=== PATIENT | female | born 1970 | race Hispanic/Latino ===

== ENCOUNTER 2016-09-07 20:18 | Emergency (ER) | payer OTHER, MEDICARE ==
[~2016-09-07] VITALS: Ht 175.3 cm; Wt 113.4 kg
[~2016-09-07 20:18] MED LIST: ALPRAZOLAM1 M2 PO; ALPRAZOLAM2 M2 PO; ATIVAN1 M1 PO; ATORVASTATIN CA80 M1 PO; BLM PO; CLOPIDOGREL75 M1 PO; DEXILANT60 M1 PO; GABAPENTIN100 M2 PO; KEPPRA500 M1 PO; KEPPRA750 M1 PO; LIDODERM1 EACH EXT; MORPHINE SULFAT15 M3 PO; MORPHINE SULFAT15 M4 PO; NICOTINE PATCH1 EAC1 TD; NICOTINE PATCH1 EAC2 TOP; OXYCODONE5 M1 PO; PERCOCET 325 MG1 TA2 PO; PERCOCET 5-3251 EACH PO; TRANSDERM-SCOP1 EACH TOP; ULTRAM50 M1 PO; VICODIN 300 MG-1 TAB PO
--- NOTE | 2016-09-07 20:28 | ED NEURO DEFICIT/STROKE ---
History of Present Illness General Chief Complaint: Seizure Stated Complaint: BIBA SEIZURE Source: old records, EMS Exam Limitations: clinical condition Vital Signs & Intake/Output Vital Signs & Intake/Output Vital Signs Date Time Temp Pulse Resp B/P Pulse O2 O2 Flow FiO2 Ox Delivery Rate 09/07 2258 90 18 139/67 98 Room Air 09/07 2038 100 Room Air Room Air 09/07 2020 101 18 153/70 100 Room Air Allergies Coded Allergies: acetaminophen (Intermediate, UPSET STOMACH 07/15/16) PER PATIENT SHE IS ALLERGIC TO ACETAMINOPHEN ibuprofen (Intermediate, ULCERS 07/14/16) cyclobenzaprine (JITTERS 07/14/16) Reconcile Medications Alprazolam 1 MG TABLET 1 TAB PO TIDPRN Anxiety (Reported) Alprazolam 2 MG TABLET 1 TAB PO TID PRN ANXIETY TWENTY....[id number] Alprazolam 1 MG TABLET 1 TAB PO TIDPRN PRN ANXIETY TEN...[id number] Atorvastatin Calcium 80 MG TABLET 80 MG PO 1700 CHOLESTEROL, AND STROKE Clopidogrel Bisulfate (Clopidogrel) 75 MG TABLET 75 MG PO DAILY STROKE Prevention (Reported) Dexlansoprazole (Dexilant) 60 MG CAP.DR.BP 1 CAP PO DAILY HEARTBURN (Reported ) Levetiracetam (Keppra) 750 MG TABLET 1 TAB PO BID SEIZURE Lorazepam (Ativan) 1 MG TABLET 1 TAB PO TID anxiety Morphine Sulfate (Morphine Sulfate ER) 15 MG TABLET.ER 15 MG PO DAILY PAIN ( Reported) Morphine Sulfate 15 MG TABLET 1 TAB PO TID PAIN (Reported) Morphine Sulfate 15 MG TABLET 1 TAB PO BIDP PRN PAIN TEN...[id number] Triage Nurses Notes Reviewed? yes Onset: Abrupt Duration: minute(s): Timing: single episode today Severity: moderate Baseline: alert, oriented x 3 Associated Symptoms: seizures HPI: 45 yo woman h/o seizure disorder, presents after seizure like activity. Per the medics, she was watching television when she suddenly had her seizure like activity which lasted several minutes, notable for thrashing about in the gurney en route. The medics note that she was conscious and conversant throughout the episode. She did not fall or hit her head. After the seizures, she was confused, but arousable to verbal stimuli. Upon further questioning, she notes that she ran out of her alprazolam and her morphine a few days ago. She does not recall her last dose. Past History Travel History Traveled to [place] past 21 day No Medical History Any Pertinent Medical History? see below for history Neurological: seizure (ON KEPPRA ATIVAN), CVA X 2 RESIDUAL WEAKNESS R SIDE EENT: NONE Cardiovascular: NONE Respiratory: NONE Gastrointestinal: GASTRIC BYPASS Hepatic: NONE Renal: NONE Musculoskeletal: FREQ FALLS Psychiatric: anxiety Endocrine: NONE Blood Disorders: NONE Cancer(s): NONE NEUROLOGY TECH/Reproductive: TUBAL History of MRSA: No History of VRE: No History of CDIFF: No Surgical History Surgical History: , hysterectomy, tubal ligation, GASTRIC BYPASS Psychosocial History Who do you live with Significant Other What is your primary language [place] Family History Hx Contributory? No Review of Systems Review of Systems Constitutional: Reports: no symptoms. EENTM: Reports: no symptoms. Respiratory: Reports: no symptoms. Cardiovascular: Reports: no symptoms. GI: Reports: no symptoms. Genitourinary: Reports: no symptoms. Musculoskeletal: Reports: no symptoms. Skin: Reports: no symptoms. Neurological/Psychological: Reports: no symptoms. Hematologic/Endocrine: Reports: no symptoms. Immunologic/Allergic: Reports: no symptoms. All Other Systems: Reviewed and Negative Physical Exam Physical Exam General Appearance: mild distress, moderate distress Head: atraumatic, normal appearance Eyes: Bilateral: normal appearance, PERRL, EOMI. Ears, Nose, Throat: normal ENT inspection, moist mucous membrane Neck: normal inspection, supple, full range of motion Respiratory: normal breath sounds, chest non-tender, no respiratory distress, quiet respiration, lungs clear Cardiovascular: regular rate/rhythm, edema, JVD Gastrointestinal: normal bowel sounds, soft, non-tender, no organomegaly Back: normal inspection, normal range of motion Extremities: normal range of motion Cranial Nerves: normal hearing, normal speech, PERRL Coordination/Gait: normal finger to nose Motor/Sensory: no motor/sensory deficits Reflexes: 1+: bicep (R), bicep (L), knee (R), knee (L). Core Measures CVA/TIA Diagnosis: No Severe Sepsis Present: No Septic Shock Present: No Progress Differential Diagnosis: drug intoxication, electrolyte imbalance, hypoglycemia, intracranial Hem., migraine SNELL, stroke Plan of Care: Orders Procedure Date/time Status Add-on Test (ER Only) 09/07 2216 Active HUMAN BETA HCG SCREEN 09/07 2041 Active DILANTIN 09/[address] HEAD WO IV CONTRAST 09/[address] CERV SPINE WO IV CONTRAST 09/07 2032 Active TROPONIN LEVEL 09/07 2027 Active PROLACTIN 09/07 2027 Active ETHANOL 09/07 2027 Active COMPREHENSIVE METABOLIC PANEL 09/07 2027 Active CBC WITHOUT DIFFERENTIAL 09/07 2027 Complete EKG 09/07 2027 Active Current Medications Sig/Isabel Start time Last Medication Dose Stop Time Status Admin Oxycodone/ 1 TAB ONCE ONE 09/07 2345 CANr Acetaminophen 09/07 2346 (Percocet) Laboratory Tests 09/07/162041: Anion Gap 13, Estimated GFR > 60, BUN/Creatinine Ratio 15.0, Glucose 92, Calcium 9.2, Total Bilirubin 0.4, AST 13 L, ALT 15, Alkaline Phosphatase 72, Troponin I < 0.01, Total Protein 7.0, Albumin 3.7, Globulin 3.3, Albumin/Globulin Ratio 1.1 , Prolactin 16.5, Total Beta HCG Pending, CBC w Diff NO MAN DIFF REQ, RBC 4.15 L, MCV 77.7 L, MCH 25.0 L, RDW 19.3 H, MPV 8.2, Gran % 49.2, Lymphocytes % 36.1, Monocytes % 6.0, Eosinophils % 8.0 H, Basophils % 0.7, Absolute Granulocytes 3.8, Absolute Lymphocytes 2.8, Absolute Monocytes 0.5, Absolute Eosinophils 0.6, Absolute Basophils 0.1, PUBS MCHC 32.3 L, Phenytoin < 3.0 L, Serum Alcohol < 10.0 09/07/162032: Total Beta HCG Cancelled, Phenytoin Cancelled Diagnostic Imaging: Viewed by Me: Radiology Read, CT Scan. Discussed w/RAD: Radiology Read, CT Scan. Initial ED EKG: normal axis, normal intervals, normal p-waves, normal QRS complex, normal sinus rhythm Comments: PATIENT: ANA CRISTINA LAMBERT PRESENT AGE: 45 PATIENT ACCOUNT NO: [id number] : 68 LOCATION: [facility] ORDERING PHYSICIAN: ULYSSES RICHMOND MD SERVICE DATE: 09/07/16 EXAM TYPE: RAD - XRY-PORTABLE CHEST XRAY EXAMINATION: XR PORTABLE CHEST CLINICAL INFORMATION: Seizures. COMPARISON: Chest x-ray 07/15/2016 TECHNIQUE: Portable view of the chest was obtained. 11:01 PM FINDINGS: No significant abnormality is noted involving the heart, lungs, mediastinum, bony thorax or soft tissues. IMPRESSION: Unremarkable examination. DICTATED BY: CLAUDE PEARSON MD DATE/TIME DICTATED:09/07/162311 SHORT GOODS DRIER:MISSY DATE/TIME TRANSCRIBED:09/07/162311 CONFIDENTIAL, DO NOT COPY WITHOUT APPROPRIATE AUTHORIZATION. <Electronically signed in Other Vendor System> SIGNED BY: CLAUDE PEARSON MD 09/07/162316 Departure Departure Disposition: HOME OR SELF CARE Condition: Stable Clinical Impression Primary Impression: Seizure disorder Referrals: MACRINA LOPEZ,ELLIOT Mcguire (PCP/Family) Departure Forms: Customer Survey General Discharge Information Prescriptions: Current Visit Scripts Morphine Sulfate 1 TAB PO BIDP PRN PAIN #10 TAB TEN...[id number] Alprazolam 1 TAB PO TIDPRN PRN ANXIETY #10 TAB TEN...[id number] Comments 09/07/16, 23:56... pt comfortable in bed... upon further questioning, her symptoms may have been due to running out of her alprazolam and morphine.... Her labs are benign, prolactin is normal... She is safe for discharge. She has declined the head ct. She would like to go home.
[2016-09-07 20:50] LABS: ABSOLUTE BASOPHIL COUNT 0.1 /CUMM (0.0-0.2); ABSOLUTE EOSINOPHIL COUNT 0.6 /CUMM (0.0-0.7); ABSOLUTE GRANULOCYTE CT 3.8 /CUMM (1.4-6.5); ABSOLUTE LYMPH COUNT 2.8 /CUMM (1.2-3.4); ABSOLUTE MONOCYTE COUNT 0.5 /CUMM (0.10-0.60); BASOPHIL % 0.7 % (0.0-2.0); GRANULOCYTE % 49.2 % (42.2-75.2); HEMATOCRIT 32.2 % (37-47); MEAN CORPUSCULAR HGB CONC 32.3 G/DL (33.0-37.0); MEAN CORPUSCULAR VOLUME 77.7 FL (81.0-99.0); MEAN PLATELET VOLUME 8.2 FL (7.4-10.4); PLATELET COUNT 235 /CUMM (130-400); RBC DISTRIBUTION WIDTH 19.3 % (11.5-14.5); RED BLOOD CELL CT 4.15 /CUMM (4.20-5.40); WHITE BLOOD CELL COUNT 7.7 /CUMM (4.8-10.8)
--- NOTE | 2016-09-07 23:17 | RADIOLOGY REPORT ---
EXAMINATION: XR PORTABLE CHEST CLINICAL INFORMATION: Seizures. COMPARISON: Chest x-ray 07/15/2016 TECHNIQUE: Portable view of the chest was obtained. 11:01 PM FINDINGS: No significant abnormality is noted involving the heart, lungs, mediastinum, bony thorax or soft tissues. IMPRESSION: Unremarkable examination.
[2016-09-07] MEDS ORDERED: ALPRAZOLAM1 M2 PO (23:45)
[2016-09-07] MEDS ORDERED: MORPHINE SULFAT15 M4 PO (23:45)
[2016-09-08 00:12] VITALS: BP 133/60
== END 2016-09-08 00:13 ==
LOC: ERH 20:18
PROVIDERS: Pediatrics
DX: G40.909 Epilepsy, unspecified, not intractable, without status epilepticus (principal)
CPT/HCPCS: 93005; 93010; 96374; G0480

== ENCOUNTER 2016-09-08 16:45 | Emergency (ER) | payer OTHER, MEDICARE ==
[~2016-09-08] VITALS: Ht 167.6 cm; Wt 79.4 kg
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
[2016-09-08 17:37] VITALS: BP 110/74
== END 2016-09-08 17:38 ==
LOC: ERH 16:45
DX: R56.9 Unspecified convulsions (principal); F13.20 Sedative, hypnotic or anxiolytic dependence, uncomplicated

== ENCOUNTER 2016-10-05 19:21 | Emergency (ER) | payer OTHER, MEDICARE ==
[~2016-10-05] VITALS: Ht 172.7 cm; Wt 81.6 kg
--- NOTE | 2016-10-05 19:32 | ED AMS/SEIZURE/WEAK/DIZZY ---
History of Present Illness General Chief Complaint: Seizure Stated Complaint: BIBA SEIZURE Source: patient, old records, EMS Exam Limitations: no limitations Vital Signs & Intake/Output Vital Signs & Intake/Output Vital Signs Date Time Temp Pulse Resp B/P Pulse O2 O2 Flow FiO2 Ox Delivery Rate 10/05 2152 97.8 80 19 160/90 100 Room Air 10/05 2030 97 Room Air 10/05 2007 82 140/66 10/05 1932 98.7 85 18 129/80 100 Room Air ED Intake and Output 10/06 0000 10/05 1200 Intake Total 0 Output Total Balance 0 Intake, Oral 0 Patient 180 lb Weight Allergies Coded Allergies: acetaminophen (Intermediate, UPSET STOMACH 07/15/16) PER PATIENT SHE IS ALLERGIC TO ACETAMINOPHEN ibuprofen (Intermediate, ULCERS 07/14/16) cyclobenzaprine (JITTERS 07/14/16) Reconcile Medications Alprazolam 1 MG TABLET 1 TAB PO TIDPRN Anxiety (Reported) Alprazolam 2 MG TABLET 1 TAB PO TID PRN ANXIETY TWENTY....[id number] Alprazolam 1 MG TABLET 1 TAB PO TIDPRN PRN ANXIETY TEN...[id number] Atorvastatin Calcium 80 MG TABLET 80 MG PO 1700 CHOLESTEROL, AND STROKE Clopidogrel Bisulfate (Clopidogrel) 75 MG TABLET 75 MG PO DAILY STROKE Prevention (Reported) Dexlansoprazole (Dexilant) 60 MG CAP.DR.BP 1 CAP PO DAILY HEARTBURN (Reported ) Levetiracetam (Keppra) 750 MG TABLET 1 TAB PO BID SEIZURE Lorazepam (Ativan) 1 MG TABLET 1 TAB PO BID PRN ANXIETY/ATTACKS TEN...[id number] Lorazepam (Ativan) 1 MG TABLET 1 TAB PO TID anxiety Morphine Sulfate (Morphine Sulfate ER) 15 MG TABLET.ER 15 MG PO DAILY PAIN ( Reported) Morphine Sulfate 15 MG TABLET 1 TAB PO TID PAIN (Reported) Morphine Sulfate 15 MG TABLET 1 TAB PO BIDP PRN PAIN TEN...[id number] Triage Nurses Notes Reviewed? yes Onset: Abrupt Duration: minute(s): Timing: recent history Injury Environment: home Severity: mild, moderate Modifying Factors: Improves With: medication, rest. 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 Per the medics she had an episode where her left arm was twitching and her eyes were deviated upwards. She did not lose consciousness. There was no loss of bowel or bladder. She received a dose of benzodiazepines and IV. Her seizure-like activity stopped. She arrives in the emergency Department slightly lethargic but is responsive to questions. She notes pain, "all over my body," as well as a headache. Past History Travel History Traveled to [place] past 21 day No Medical History Any Pertinent Medical History? 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 No Review of Systems Review of Systems Constitutional: Reports: no symptoms. EENTM: Reports: no symptoms. Respiratory: Reports: no symptoms. Cardiovascular: Reports: no symptoms. GI: Reports: no symptoms. Genitourinary: Reports: no symptoms. Musculoskeletal: Reports: no symptoms. Skin: Reports: no symptoms. Neurological/Psychological: Reports: no symptoms. Hematologic/Endocrine: Reports: no symptoms. Immunologic/Allergic: Reports: no symptoms. All Other Systems: Reviewed and Negative Physical Exam Physical Exam General Appearance: well developed/nourished, mild distress Head: atraumatic, normal appearance Eyes: Bilateral: normal appearance. Ears, Nose, Throat: normal pharynx, normal ENT inspection Neck: normal inspection, supple, full range of motion Respiratory: normal breath sounds, chest non-tender, no respiratory distress, quiet respiration, lungs clear Cardiovascular: regular rate/rhythm Gastrointestinal: normal bowel sounds, soft, non-tender Back: normal inspection, normal range of motion Extremities: normal range of motion Neurologic/Psych: awake, alert, right arm and leg weakness 2 out of 5 strength. Left arm and leg strength is 5 out of 5. Reflexes: 0: bicep (R), knee (R). 1+: bicep (L), knee (L). Core Measures ACS in differential dx? No CVA/TIA Diagnosis: No Severe Sepsis Present: No Septic Shock Present: No Progress Differential Diagnosis: seizure vs pseudoseizure Plan of Care: Orders Procedure Date/time Status URINE DRUG SCREEN FOR ER ONLY 10/05 1932 Complete URINALYSIS 10/05 1932 Complete TROPONIN LEVEL 10/05 1932 Complete PROLACTIN 10/05 1932 Complete HUMAN BETA HCG SCREEN 10/05 1932 Complete ETHANOL 10/05 1932 Complete COMPREHENSIVE METABOLIC PANEL 10/05 1932 Complete CBC WITHOUT DIFFERENTIAL 10/05 1932 Complete EKG 10/05 1932 Active Laboratory Tests 10/05/162129: Urine Opiates Screen 498.00, Methadone Screen < 40, Barbiturate Screen < 60, Ur Phencyclidine Scrn < 6.00, Amphetamines Screen < 100, U Benzodiazepines Scrn > 800 H, Urine Cocaine Screen < 50, Urine Cannabis Screen 19.70, Urine Color YEL, Urine Clarity CLEAR, Urine pH 6.0, Ur Specific Farner 1.025, Urine Protein NEG, Urine Ketones NEG, Urine Nitrite NEG, Urine Bilirubin NEG, Urine Urobilinogen 0.2, Ur Leukocyte Esterase NEG, Ur Microscopic EXAM NOT REQUIRED, Urine Hemoglobin NEG, Urine Glucose NEG 10/05/162000: Anion Gap 8, Estimated GFR > 60, BUN/Creatinine Ratio 18.6, Glucose 91, Calcium 9.4, Total Bilirubin 0.4, AST 14, ALT 20, Alkaline Phosphatase 72, Troponin I < 0.01, Total Protein 6.9, Albumin 3.6, Globulin 3.3, Albumin/Globulin Ratio 1.1, Prolactin 19.2 H, Total Beta HCG NEGATIVE, CBC w Diff NO MAN DIFF REQ, RBC 4.03 L, MCV 77.9 L, MCH 25.7 L, RDW 19.4 H, MPV 8.6, Gran % 54.6, Lymphocytes % 32.8, Monocytes % 6.0, Eosinophils % 6.4 H, Basophils % 0.2, Absolute Granulocytes 4.4, Absolute Lymphocytes 2.7, Absolute Monocytes 0.5, Absolute Eosinophils 0.5, Absolute Basophils 0, PUBS MCHC 32.9 L, Serum Alcohol < 10.0 Diagnostic Imaging: Viewed by Me: Radiology Read, CT Scan. Discussed w/RAD: Radiology Read, CT Scan. Radiology Impression: head ct... chronic left mca infarct. no acute disease. Initial ED EKG: normal axis, normal intervals, normal p-waves, normal QRS complex, normal sinus rhythm Comments: PATIENT: ANA CRISTINA LAMBERT PRESENT AGE: 45 PATIENT ACCOUNT NO: [id number] : 66 LOCATION: [facility] ORDERING PHYSICIAN: ULYSSES RICHMOND MD SERVICE DATE: 10/05/16 EXAM TYPE: CAT - CT HEAD WO IV CONTRAST EXAMINATION: CT HEAD WITHOUT CONTRAST CLINICAL INFORMATION: Seizures. On Plavix. COMPARISON: CT head 08/13/2016 TECHNIQUE: Contiguous axial imaging was performed from the skull base to vertex without intravenous administration of contrast. DLP: 600.71 mGy-cm. FINDINGS: There is a chronic left MCA territory infarct unchanged since prior study. There is no evidence of acute intracranial hemorrhage or acute territorial infarction. No abnormal mass effect or midline shift is seen. Frankel to white matter differentiation is well preserved. No extra-axial fluid collections are identified. The ventricles are normal in size. There is no abnormal attenuation within the brain parenchyma. The osseous structures and soft tissues are normal. The mastoid air cells and visualized portions of the paranasal sinuses are well aerated. IMPRESSION: No acute intracranial pathology. DICTATED BY: CLAUDE PEARSON MD DATE/TIME DICTATED:10/05/162150 COMPUTERIZED MILL MILL RECORDER:MISSY DATE/TIME TRANSCRIBED:10/05/162150 CONFIDENTIAL, DO NOT COPY WITHOUT APPROPRIATE AUTHORIZATION. <Electronically signed in Other Vendor System> SIGNED BY: CLAUDE PEARSON MD 10/05/162208 PATIENT: ANA CRISTINA LAMBERT PRESENT AGE: 45 PATIENT ACCOUNT NO: [id number] : 66 LOCATION: [facility] ORDERING PHYSICIAN: ULYSSES RICHMOND MD SERVICE DATE: 10/05/16 EXAM TYPE: RAD - XRY-PORTABLE CHEST XRAY EXAMINATION: XR PORTABLE CHEST CLINICAL INFORMATION: Seizure. Concern for aspiration COMPARISON: Chest x-ray 09/07/2016 TECHNIQUE: Portable AP view of the chest was obtained. 8:22 PM FINDINGS: No significant abnormality is noted involving the heart, lungs, mediastinum, bony thorax or soft tissues. IMPRESSION: Unremarkable examination. DICTATED BY: CLAUDE PEARSON MD DATE/TIME DICTATED:10/05/162034 COMPUTERIZED MILL MILL RECORDER:MISSY DATE/TIME TRANSCRIBED:10/05/162034 CONFIDENTIAL, DO NOT COPY WITHOUT APPROPRIATE AUTHORIZATION. <Electronically signed in Other Vendor System> SIGNED BY: CLAUDE PEARSON MD 10/05/162039 Departure Departure Disposition: HOME OR SELF CARE Condition: Stable Clinical Impression Primary Impression: Seizure Referrals: MACRINA LOPEZ,ELLIOT Mcguire (PCP/Family) Departure Forms: Customer Survey General Discharge Information Prescriptions: Current Visit Scripts Lorazepam (Ativan) 1 TAB PO BID PRN ANXIETY/ATTACKS #10 TAB TEN...[id number] Comments well appearing at discharge, proloactin level is low... ct scan and cxr, labs are otherwise benign. This is similar to her prior episodes. She feels comfortable going home in company of her boyfriend. Close follow up encouraged.
[2016-10-05 20:13] LABS: ABSOLUTE BASOPHIL COUNT 0 /CUMM (0.0-0.2); ABSOLUTE EOSINOPHIL COUNT 0.5 /CUMM (0.0-0.7); ABSOLUTE GRANULOCYTE CT 4.4 /CUMM (1.4-6.5); ABSOLUTE LYMPH COUNT 2.7 /CUMM (1.2-3.4); ABSOLUTE MONOCYTE COUNT 0.5 /CUMM (0.10-0.60); BASOPHIL % 0.2 % (0.0-2.0); EOSINOPHIL % 6.4 % (0-5); GRANULOCYTE % 54.6 % (42.2-75.2); HEMATOCRIT 31.4 % (37-47); MEAN CORPUSCULAR HGB 25.7 PG (27.0-31.0); MEAN CORPUSCULAR HGB CONC 32.9 G/DL (33.0-37.0); MEAN CORPUSCULAR VOLUME 77.9 FL (81.0-99.0); MEAN PLATELET VOLUME 8.6 FL (7.4-10.4); PLATELET COUNT 217 /CUMM (130-400); RBC DISTRIBUTION WIDTH 19.4 % (11.5-14.5); RED BLOOD CELL CT 4.03 /CUMM (4.20-5.40); WHITE BLOOD CELL COUNT 8.1 /CUMM (4.8-10.8)
--- NOTE | 2016-10-05 20:40 | RADIOLOGY REPORT ---
EXAMINATION: XR PORTABLE CHEST CLINICAL INFORMATION: Seizure. Concern for aspiration COMPARISON: Chest x-ray 09/07/2016 TECHNIQUE: Portable AP view of the chest was obtained. 8:22 PM FINDINGS: No significant abnormality is noted involving the heart, lungs, mediastinum, bony thorax or soft tissues. IMPRESSION: Unremarkable examination.
[2016-10-05 21:53] VITALS: BP 160/90
--- NOTE | 2016-10-05 22:09 | CT SCAN REPORT ---
EXAMINATION: CT HEAD WITHOUT CONTRAST CLINICAL INFORMATION: Seizures. On Plavix. COMPARISON: CT head 08/13/2016 TECHNIQUE: Contiguous axial imaging was performed from the skull base to vertex without intravenous administration of contrast. DLP: 600.71 mGy-cm. FINDINGS: There is a chronic left MCA territory infarct unchanged since prior study. There is no evidence of acute intracranial hemorrhage or acute territorial infarction. No abnormal mass effect or midline shift is seen. Frankel to white matter differentiation is well preserved. No extra-axial fluid collections are identified. The ventricles are normal in size. There is no abnormal attenuation within the brain parenchyma. The osseous structures and soft tissues are normal. The mastoid air cells and visualized portions of the paranasal sinuses are well aerated. IMPRESSION: No acute intracranial pathology.
[2016-10-05] MEDS ORDERED: ATIVAN1 M1 PO (22:53)
== END 2016-10-05 23:13 ==
LOC: ERH 19:21
PROVIDERS: Pediatrics
DX: R56.9 Unspecified convulsions (principal)
CPT/HCPCS: 80307; 81003; 93005; 93010; 96374; G0480

== ENCOUNTER 2016-10-06 22:04 | Emergency (ER) | payer OTHER, MEDICARE ==
[~2016-10-06] VITALS: Ht 170.2 cm; Wt 86.2 kg
--- NOTE | 2016-10-06 22:37 | ED AMS/SEIZURE/WEAK/DIZZY ---
History of Present Illness General Chief Complaint: Seizure Stated Complaint: SEIZURE Source: patient, old records, EMS Exam Limitations: no limitations Vital Signs & Intake/Output Vital Signs & Intake/Output Vital Signs Date Time Temp Pulse Resp B/P Pulse O2 O2 Flow FiO2 Ox Delivery Rate 10/06 2305 98.0 96 18 109/59 96 Room Air 10/06 2212 Room Air 10/06 221 97.8 99 20 116/78 99 Room Air ED Intake and Output 10/07 0000 10/06 1200 Intake Total Output Total Balance Patient 190 lb Weight Allergies Coded Allergies: acetaminophen (Intermediate, UPSET STOMACH 07/15/16) PER PATIENT SHE IS ALLERGIC TO ACETAMINOPHEN ibuprofen (Intermediate, ULCERS 07/14/16) cyclobenzaprine (JITTERS 07/14/16) Reconcile Medications Alprazolam 1 MG TABLET 1 TAB PO TIDPRN Anxiety (Reported) Alprazolam 2 MG TABLET 1 TAB PO TID PRN ANXIETY TWENTY....[id number] Alprazolam 1 MG TABLET 1 TAB PO TIDPRN PRN ANXIETY TEN...[id number] Atorvastatin Calcium 80 MG TABLET 80 MG PO 1700 CHOLESTEROL, AND STROKE Clopidogrel Bisulfate (Clopidogrel) 75 MG TABLET 75 MG PO DAILY STROKE Prevention (Reported) Dexlansoprazole (Dexilant) 60 MG CAP.DR.BP 1 CAP PO DAILY HEARTBURN (Reported ) Levetiracetam (Keppra) 750 MG TABLET 1 TAB PO BID SEIZURE Lorazepam (Ativan) 1 MG TABLET 1 TAB PO BID PRN ANXIETY/ATTACKS TEN...[id number] Lorazepam (Ativan) 1 MG TABLET 1 TAB PO TID anxiety Morphine Sulfate (Morphine Sulfate ER) 15 MG TABLET.ER 15 MG PO DAILY PAIN ( Reported) Morphine Sulfate 15 MG TABLET 1 TAB PO TID PAIN (Reported) Morphine Sulfate 15 MG TABLET 1 TAB PO BIDP PRN PAIN TEN...[id number] Triage Note: BIBA FOR SEIZURES. PER EMS SEIZURES LASTING APPROXIMATELY 30 SECONDS. PT WITH HISTORY OF THIS, WAS IN THE ED YESTERDAY FOR SAME COMPLAINT. UPON ARRIVAL PT AWAKE, LETHARGIC AND HAD SEIZURE. PT REMAINS RESPONSIVE DURING EPISODE, NO INCONTINENCE. PT COMPLAINING OF GENERALIZED PAIN, WORST IN NECK. STATES MORPHINE HELPS HER PAIN. Triage Nurses Notes Reviewed? yes Onset: Just prior to arrival Duration: minute(s):, intermittent Timing: recent history Injury Environment: home Severity: mild No Modifying Factors: none Associated Symptoms: chronic pain LMP (ages 10-50): unknown : No Patient currently breastfeeds: No HPI: Prior to admission significant other noted patient to have increased anxiety followed by generalized shaking lasting several seconds resolving spontaneously. She was seen earlier in the day with similar symptoms negative workup discharged home with Ativan. She complains of neck and back pain chronically reportedly improved with morphine. Denies fever chills nausea vomiting diarrhea abdominal pain chest pain shortness of breath headache dysuria rash bleeding. Past History Travel History Traveled to [place] past 21 day No Medical History Any Pertinent Medical History? 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 No Review of Systems Review of Systems Constitutional: Reports: no symptoms. EENTM: Reports: no symptoms. Respiratory: Reports: no symptoms. Cardiovascular: Reports: no symptoms. GI: Reports: no symptoms. Genitourinary: Reports: no symptoms. Musculoskeletal: Reports: no symptoms. Skin: Reports: no symptoms. Neurological/Psychological: Reports: see HPI, anxiety, confusion, depressed, tremors. Hematologic/Endocrine: Reports: no symptoms. Immunologic/Allergic: Reports: no symptoms. All Other Systems: Reviewed and Negative Physical Exam Physical Exam General Appearance: well developed/nourished, alert, awake, anxious, moderate distress, obese Head: atraumatic, normal appearance Eyes: Bilateral: normal appearance, PERRL, EOMI. Ears, Nose, Throat: normal pharynx, normal ENT inspection Neck: normal inspection, supple, full range of motion, no midline tenderness Respiratory: normal breath sounds, chest non-tender, no respiratory distress, quiet respiration, lungs clear Cardiovascular: regular rate/rhythm, normal peripheral pulses, norml femoral pulses equa Peripheral Pulses: 4+ carotid (R), 4+ carotid (L) Gastrointestinal: normal bowel sounds, soft, non-tender, no organomegaly Back: normal inspection, normal range of motion Extremities: normal range of motion, no ligament instability Neurologic/Psych: awake, alert, oriented x 3, cripple chaser II-XII nml as tested, motor/ sensory deficits Reflexes: 2+: bicep (R), bicep (L). Skin: intact, normal color, warm/dry Lymphatic: no anterior cervical rema Core Measures ACS in differential dx? No CVA/TIA Diagnosis: No Severe Sepsis Present: No Septic Shock Present: No Progress Differential Diagnosis: CVA/stroke, electrolyte imbalance, hypoglycemia, seizure disorder Plan of Care: Current Medications Sig/Isabel Start time Last Medication Dose Stop Time Status Admin Lorazepam 1 MG ONCE ONE 10/06 2244 UNVr (Ativan) 10/06 2245 Initial ED EKG: none Departure Departure Time of Disposition: 2236 Disposition: HOME OR SELF CARE Condition: Stable Clinical Impression Primary Impression: Anxiety and depression Referrals: MACRINA LOPEZ,ELLIOT Mcguire (PCP/Family) Departure Forms: Customer Survey General Discharge Information
[2016-10-06 23:05] VITALS: BP 109/59
== END 2016-10-06 23:41 ==
LOC: ERH 22:04
DX: F41.9 Anxiety disorder, unspecified (principal); F32.9 Major depressive disorder, single episode, unspecified

== ENCOUNTER 2016-10-10 17:57 | Emergency (ER) | payer OTHER, MEDICARE ==
[~2016-10-10] VITALS: Ht 170.2 cm; Wt 111.1 kg
--- NOTE | 2016-10-10 18:37 | ED GI/GU/ABDOMINAL COMPLAINT ---
History of Present Illness General Chief Complaint: Abdominal Pain/Flank Pain Stated Complaint: KIDNEY PAIN? Source: patient, old records Exam Limitations: SPEECH DIFFICULTY Vital Signs & Intake/Output Vital Signs & Intake/Output Vital Signs Date Time Temp Pulse Resp B/P Pulse O2 O2 Flow FiO2 Ox Delivery Rate 10/103 80 16 96/60 99 Room Air 10/10 1802 97.4 92 20 98/69 96 Room Air Allergies Coded Allergies: acetaminophen (Intermediate, UPSET STOMACH 10/10/16) PER PATIENT SHE IS ALLERGIC TO ACETAMINOPHEN ibuprofen (Intermediate, ULCERS 10/10/16) cyclobenzaprine (JITTERS 10/10/16) Reconcile Medications Alprazolam 1 MG TABLET 1 TAB PO TIDPRN Anxiety (Reported) Alprazolam 2 MG TABLET 1 TAB PO TID PRN ANXIETY TWENTY....[id number] Alprazolam 1 MG TABLET 1 TAB PO TIDPRN PRN ANXIETY TEN...[id number] Atorvastatin Calcium 80 MG TABLET 80 MG PO 1700 CHOLESTEROL, AND STROKE Clopidogrel Bisulfate (Clopidogrel) 75 MG TABLET 75 MG PO DAILY STROKE Prevention (Reported) Dexlansoprazole (Dexilant) 60 MG CAP.DR.BP 1 CAP PO DAILY HEARTBURN (Reported ) Levetiracetam (Keppra) 750 MG TABLET 1 TAB PO BID SEIZURE Lorazepam (Ativan) 1 MG TABLET 1 TAB PO BID PRN ANXIETY/ATTACKS TEN...[id number] Lorazepam (Ativan) 1 MG TABLET 1 TAB PO TID anxiety Morphine Sulfate (Morphine Sulfate ER) 15 MG TABLET.ER 15 MG PO DAILY PAIN ( Reported) Morphine Sulfate 15 MG TABLET 1 TAB PO TID PAIN (Reported) Morphine Sulfate 15 MG TABLET 1 TAB PO BIDP PRN PAIN TEN...[id number] Triage Note: TRIAGE: PT TO ER C/C RT FLANK/SIDE PAIN X 2 DAYS, CONSTANT SINCE ONSET. +N/V, -DIARRHEA. VOMITED X 4 TODAY. UNSURE OF LNBM, ?5-6 DAYS AGO. STATES NORMALLY MOVES BOWELS DAILY. -URINARY S/S. Triage Nurses Notes Reviewed? yes ? N Is pt currently ? No Onset: Abrupt Duration: day(s): (2) Timing: recent history Quality/Severity: moderate Location: right flank Radiation: back Activities at Onset: none HPI: This is a 45-year-old female with history of previous TIAs, stuttering speech but sensory are chief complaint of right flank pain radiating to the right lower quadrant the past 2 days. She states she vomited 4 times today. Denies fever or chils. Denies urinary symptoms. Past History Travel History Traveled to [place] past 21 day No Medical History Any Pertinent Medical History? 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 No Review of Systems Review of Systems Constitutional: Denies: chills, fever. EENTM: Reports: no symptoms. Respiratory: Denies: cough, short of breath. Cardiovascular: Denies: chest pain, palpitations. GI: Reports: abdominal pain. Genitourinary: Denies: discharge, dysuria. Musculoskeletal: Reports: back pain. Skin: Reports: no symptoms. Neurological/Psychological: Reports: ataxia. Hematologic/Endocrine: Denies: bruising, bleeding, polyuria, polydipsia. Immunologic/Allergic: Denies: splenectomy. All Other Systems: Reviewed and Negative Physical Exam Physical Exam General Appearance: well developed/nourished, alert, awake, anxious Head: atraumatic, normal appearance Eyes: Bilateral: normal appearance, PERRL, EOMI. Ears, Nose, Throat, Mouth: hearing grossly normal, moist mucous membrane Neck: normal inspection, supple, full range of motion Respiratory: normal breath sounds, chest non-tender, no respiratory distress Cardiovascular: regular rate/rhythm Peripheral Pulses: 2+ radial (R), 2+ radial (L) Gastrointestinal: soft, tenderness (RLQ) Back: CVA tenderness (R) Neurologic/Psych: no motor/sensory deficits, awake, alert, oriented x 3 Skin: intact, normal color, warm/dry Core Measures ACS in differential dx? No Severe Sepsis Present: No Septic Shock Present: No Progress Differential Diagnosis: kidney stone, ovarian cyst, ovarian torsion, PID/ cervicitis, UTI/pyelo Plan of Care: Orders Procedure Date/time Status URINE DRUGS OF ABUSE 10/10 1842 Complete URINE 10/10 1842 Complete URINALYSIS 10/10 1842 Complete Laboratory Tests 10/10/16 1918: Urine Opiates Screen 2869.00 H, Methadone Screen < 40, Barbiturate Screen < 60, Ur Phencyclidine Scrn < 6.00, Amphetamines Screen < 100, U Benzodiazepines Scrn > 800 H, Urine Cocaine Screen < 50, Urine Cannabis Screen < 5.00, Urine Color YEL, Urine Clarity CLEAR, Urine pH 6.0, Ur Specific [place] 1.015, Urine Protein NEG, Urine Ketones NEG, Urine Nitrite NEG, Urine Bilirubin NEG, Urine Urobilinogen 0.2, Ur Leukocyte Esterase NEG, Ur Microscopic EXAM NOT REQUIRED, Urine Hemoglobin NEG, Urine Glucose NEG, Urine Test NEGATIVE Diagnostic Imaging: Viewed by Me: CT Scan. Discussed w/RAD: CT Scan. Initial ED EKG: none Comments: PATIENT: ANA CRISTINA LAMBERT PRESENT AGE: 45 PATIENT ACCOUNT NO: [id number] : 68 LOCATION: [facility] ORDERING PHYSICIAN: DRISS CINTRON MD SERVICE DATE: 10/10/16 EXAM TYPE: CAT - CT ABD & PELVIS W/O IV CONTRAS EXAMINATION: CT ABDOMEN AND PELVIS WITHOUT CONTRAST CLINICAL INFORMATION: Right flank pain radiating to the right lower quadrant. Evaluate for renal stone. COMPARISON: CT abdomen and pelvis with contrast 06/14/2016. TECHNIQUE: Multidetector volumetric imaging was performed from the superior aspect of the liver through the pubic symphysis. Sagittal and coronal reformatted images were obtained on the technologist's workstation. DLP: 981 mGy-cm FINDINGS: Limited evaluation of the solid abdominal viscera in the absence of intravenous contrast. LUNG BASES: The visualized lung bases are unremarkable. LIVER, GALLBLADDER, AND BILIARY TREE: The liver is normal in size, shape, and attenuation. No focal hepatic lesion or biliary ductal dilatation is present. The gallbladder is unremarkable with no evidence of radiopaque gallstones, gallbladder wall thickening, or obvious pericholecystic inflammatory changes. PANCREAS: Unremarkable. SPLEEN: Unremarkable. ADRENAL GLANDS: Unremarkable. KIDNEYS AND URETERS: The kidneys are normal in size, shape and contour. No contour deforming renal lesions are identified. No renal or ureteral stones are identified and there is no hydroureteronephrosis of either kidney or renal collecting system BLADDER: Unremarkable. GASTROINTESTINAL TRACT: Evaluation of the gastrointestinal system is again notable for postsurgical changes related to gastric bypass surgery. The gastrojejunal and jejunojejunal anastomoses appear to be grossly patent. Abdominal and pelvic bowel loops are normal in caliber, without findings indicative of obstruction or ileus. There is a moderate amount of retained stool throughout the colon. A normal-appearing appendix is present within the right lower quadrant of the abdomen. No organizing intra-abdominal or pelvic fluid collections and no free intraperitoneal air. ABDOMINAL WALL: No significant hernia is appreciated. LYMPH NODES: No significant abdominal or pelvic adenopathy. VASCULAR: Normal course and caliber of the abdominal aorta and its branching vessels, without aneurysmal dilatation. Limited evaluation for vascular patency in the absence of intravenous contrast. PELVIC VISCERA: Unremarkable. OSSEOUS STRUCTURES: No acute osseous abnormality. Normal alignment of the imaged thoracolumbar spine. No visible destructive osseous lesions. IMPRESSION: No acute findings within the abdomen or pelvis to explain patient symptomatology. Stable postsurgical changes related to prior gastric bypass surgery. Normal caliber of abdominal and pelvic bowel loops, without findings indicative of obstruction or ileus. There is a moderate amount of retained stool throughout the colon, indicative of constipation. DICTATED BY: ABBY MOONEY MD DATE/TIME DICTATED:10/10/162200 ENVIRONMENTAL PROTECTION GEOLOGIST:MISSY DATE/TIME TRANSCRIBED:10/10/162200 CONFIDENTIAL, DO NOT COPY WITHOUT APPROPRIATE AUTHORIZATION. <Electronically signed in Other Vendor System> SIGNED BY: ABBY MOONEY MD 10/10/162208 Departure Departure Time of Disposition: 2209 Disposition: HOME OR SELF CARE Condition: Stable Clinical Impression Primary Impression: Constipation Referrals: MACRINA LOPEZ,ELLITO Mcguire (PCP/Family) Additional Instructions: Take over the counter miralax for constipation. Departure Forms: Customer Survey General Discharge Information
--- NOTE | 2016-10-10 22:09 | CT SCAN REPORT ---
EXAMINATION: CT ABDOMEN AND PELVIS WITHOUT CONTRAST CLINICAL INFORMATION: Right flank pain radiating to the right lower quadrant. Evaluate for renal stone. COMPARISON: CT abdomen and pelvis with contrast 06/14/2016. TECHNIQUE: Multidetector volumetric imaging was performed from the superior aspect of the liver through the pubic symphysis. Sagittal and coronal reformatted images were obtained on the technologist's workstation. DLP: 981 mGy-cm FINDINGS: Limited evaluation of the solid abdominal viscera in the absence of intravenous contrast. LUNG BASES: The visualized lung bases are unremarkable. LIVER, GALLBLADDER, AND BILIARY TREE: The liver is normal in size, shape, and attenuation. No focal hepatic lesion or biliary ductal dilatation is present. The gallbladder is unremarkable with no evidence of radiopaque gallstones, gallbladder wall thickening, or obvious pericholecystic inflammatory changes. PANCREAS: Unremarkable. SPLEEN: Unremarkable. ADRENAL GLANDS: Unremarkable. KIDNEYS AND URETERS: The kidneys are normal in size, shape and contour. No contour deforming renal lesions are identified. No renal or ureteral stones are identified and there is no hydroureteronephrosis of either kidney or renal collecting system BLADDER: Unremarkable. GASTROINTESTINAL TRACT: Evaluation of the gastrointestinal system is again notable for postsurgical changes related to gastric bypass surgery. The gastrojejunal and jejunojejunal anastomoses appear to be grossly patent. Abdominal and pelvic bowel loops are normal in caliber, without findings indicative of obstruction or ileus. There is a moderate amount of retained stool throughout the colon. A normal-appearing appendix is present within the right lower quadrant of the abdomen. No organizing intra-abdominal or pelvic fluid collections and no free intraperitoneal air. ABDOMINAL WALL: No significant hernia is appreciated. LYMPH NODES: No significant abdominal or pelvic adenopathy. VASCULAR: Normal course and caliber of the abdominal aorta and its branching vessels, without aneurysmal dilatation. Limited evaluation for vascular patency in the absence of intravenous contrast. PELVIC VISCERA: Unremarkable. OSSEOUS STRUCTURES: No acute osseous abnormality. Normal alignment of the imaged thoracolumbar spine. No visible destructive osseous lesions. IMPRESSION: No acute findings within the abdomen or pelvis to explain patient symptomatology. Stable postsurgical changes related to prior gastric bypass surgery. Normal caliber of abdominal and pelvic bowel loops, without findings indicative of obstruction or ileus. There is a moderate amount of retained stool throughout the colon, indicative of constipation.
[2016-10-10 22:15] VITALS: BP 116/58
== END 2016-10-10 22:41 ==
LOC: ERH 17:57
DX: K59.00 Constipation, unspecified (principal)
CPT/HCPCS: 74176; 80307; 81003; 81025; 96372; J1885

== ENCOUNTER 2016-11-08 19:18 | Emergency (ER) | payer OTHER, MEDICARE ==
[~2016-11-08] VITALS: Ht 167.6 cm; Wt 81.6 kg
--- NOTE | 2016-11-08 20:11 | ED NEURO DEFICIT/STROKE ---
See Addendum History of Present Illness General Chief Complaint: General Adult Stated Complaint: GENERAL WEAKNESS Source: patient, family, old records Exam Limitations: clinical condition Allergies Coded Allergies: acetaminophen (Intermediate, UPSET STOMACH 10/10/16) PER PATIENT SHE IS ALLERGIC TO ACETAMINOPHEN ibuprofen (Intermediate, ULCERS 10/10/16) cyclobenzaprine (JITTERS 10/10/16) Reconcile Medications Alprazolam 1 MG TABLET 1 TAB PO TIDPRN Anxiety (Reported) Alprazolam 2 MG TABLET 1 TAB PO TID PRN ANXIETY TWENTY....[id number] Alprazolam 1 MG TABLET 1 TAB PO TIDPRN PRN ANXIETY TEN...[id number] Atorvastatin Calcium 80 MG TABLET 80 MG PO 1700 CHOLESTEROL, AND STROKE Clopidogrel Bisulfate (Clopidogrel) 75 MG TABLET 75 MG PO DAILY STROKE Prevention (Reported) Dexlansoprazole (Dexilant) 60 MG CAP.DRYiselBP 1 CAP PO DAILY HEARTBURN (Reported ) Levetiracetam (Keppra) 750 MG TABLET 1 TAB PO BID SEIZURE Lorazepam (Ativan) 1 MG TABLET 1 TAB PO BID PRN ANXIETY/ATTACKS TEN...[id number] Lorazepam (Ativan) 1 MG TABLET 1 TAB PO TID anxiety Morphine Sulfate (Morphine Sulfate ER) 15 MG TABLET.ER 15 MG PO DAILY PAIN ( Reported) Morphine Sulfate 15 MG TABLET 1 TAB PO TID PAIN (Reported) Morphine Sulfate 15 MG TABLET 1 TAB PO BIDP PRN PAIN TEN...[id number] Triage Note: EMS STATES FOUND IN BED STATING THE STAES INCREASED LETHARGIC UNABLE TO OBT MEDS OTHER THAN TOOK XANNAX, INCONTINANT, ALERT Triage Nurses Notes Reviewed? yes HPI: 46-year-old female with multiple medical complaints. She claims to have a history of seizure, she is on Keppra, she is also on Xanax. She had a fall last evening in which she tripped over her bed sheets and fell onto the her right knee and striking the left side of her face on the ground. She did not lose consciousness, she has had some headaches ever since. Today she was found in bed by her after suspected seizure. She was incontinent and confused, lethargic. She was brought in by ambulance for further evaluation. Her is not the bedside at time of my evaluation and her history is limited. She is not participating in exam fully, question poor effort. Patient states that her right upper extremity is chronically weak. She is unsure as to whether or not she had a seizure. She seems mildly lethargic on evaluation. She also complains of mild right knee pain since her fall yesterday. (PA KING) Vital Signs & Intake/Output Vital Signs & Intake/Output Vital Signs Date Time Temp Pulse Resp B/P Pulse O2 O2 Flow FiO2 Ox Delivery Rate 11/09 0646 96.4 70 18 118/75 98 Room Air 11/09 0330 98.3 82 16 177/84 98 11/09 0130 98.1 87 18 128/63 99 Room Air 11/09 0030 97.4 76 16 145/69 11/08 2302 70 14 150/67 11/08 2200 98.7 75 14 154/68 98 Room Air ED Intake and Output 11/09 0000 11/08 1200 Intake Total Output Total Balance Patient 180 lb Weight Past History Travel History Traveled to [place] past 21 day No Medical History Any Pertinent Medical History? 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 No (PA KING) Review of Systems Review of Systems Constitutional: Reports: see HPI. EENTM: Reports: no symptoms. Respiratory: Reports: no symptoms. Cardiovascular: Reports: no symptoms. GI: Reports: no symptoms. Genitourinary: Reports: no symptoms. Musculoskeletal: Reports: see HPI. Skin: Reports: no symptoms. Neurological/Psychological: Reports: see HPI. Hematologic/Endocrine: Reports: no symptoms. Immunologic/Allergic: Reports: no symptoms. All Other Systems: Reviewed and Negative (PA KING) Physical Exam Physical Exam General Appearance: well developed/nourished Comments: Patient lying on stretcher, appears in no acute distress, she is not be dissipating fully and exam, she is giving poor effort. She refuses to open her eyes. Well-developed well-nourished no apparent distress. HEENT: Atraumatic, extraocular motion intact, no tenderness, no nystagmus, pupils are equally round and reactive Neck: Supple, no lymphadenopathy Back: Nontender Respiratory: No respiratory distress clear to auscultation. Heart: Regular rate and rhythm Abdomen: Soft nontender nondistended Extremities: No edema, mild anterior diffuse right knee pain, no swelling no ecchymosis no signs of trauma full range of motion no instability. Neuro: Alert and oriented x3, mild chronic right upper extremity weakness secondary to CVA, no worse than baseline per patient. Psych: Affect is flat, mildly lethargic Skin: Warm and dry, no rash on exposed skin (PA KING) Physical Exam Cranial Nerves: PERRL Core Measures CVA/TIA Diagnosis: No Severe Sepsis Present: No Septic Shock Present: No (SERG GOLDSMITH DO) Progress Differential Diagnosis: acute glaucoma, Aquino's Palsy, drug intoxication, electrolyte imbalance, encephalitis, hypoglycemia, intracranial Hem., intracranial mass/tumor, meningitis, migraine SNELL, seizure disorder, stroke, subarachnoid Hem., vertebrobasilar insuff. Plan of Care: Orders Procedure Date/time Status Regular Diet 11/09 B Active Continuous Observation Monitor 11/09 1028 Active Continuous Observation Monitor 11/09 0445 Active Continuous Observation Monitor 11/09 0046 Active ED CRISIS PSYCH CONSULT 11/09 0046 Active PROLACTIN 11/09 2003 Complete ETHANOL 11/09 2003 Complete COMPREHENSIVE METABOLIC PANEL 11/09 2003 Complete CBC WITHOUT DIFFERENTIAL 11/09 2003 Complete URINE DRUG SCREEN FOR ER ONLY 11/08 193 Complete Laboratory Tests 11/08/160: Anion Gap 8, Estimated GFR > 60, BUN/Creatinine Ratio 12.5, Glucose 86, Calcium 9.6, Total Bilirubin 0.6, AST 16, ALT 28, Alkaline Phosphatase 88, Total Protein 7.5, Albumin 3.9, Globulin 3.6, Albumin/Globulin Ratio 1.1, Prolactin 15.5, CBC w Diff NO MAN DIFF REQ, RBC 4.38, MCV 78.8 L, MCH 25.3 L, RDW 20.0 H, MPV 7.8 , Gran % 52.1, Lymphocytes % 34.4, Monocytes % 7.1, Eosinophils % 6.1 H, Basophils % 0.3, Absolute Granulocytes 3.4, Absolute Lymphocytes 2.2, Absolute Monocytes 0.5, Absolute Eosinophils 0.4, Absolute Basophils 0, PUBS MCHC 32.2 L , Serum Alcohol < 10.0 11/08/16 1920: Urine Opiates Screen 114.00, Methadone Screen < 40, Barbiturate Screen < 60, Ur Phencyclidine Scrn < 6.00, Amphetamines Screen < 100, U Benzodiazepines Scrn > 800 H, Urine Cocaine Screen < 50, Urine Cannabis Screen < 5.00 Diagnostic Imaging: Viewed by Me: CT Scan. Discussed w/RAD: CT Scan. Radiology Impression: PATIENT: ANA CRISTINA LAMBERT PRESENT AGE: 46 PATIENT ACCOUNT NO: [id number] : 68 LOCATION: [facility] ORDERING PHYSICIAN: PA HOLLOWAY SERVICE DATE: 11/08/16 EXAM TYPE : CAT - CT HEAD WO IV CONTRAST EXAMINATION: CT HEAD WITHOUT CONTRAST CLINICAL INFORMATION: Fall. Injury. COMPARISON: CT head 10/05/2016 TECHNIQUE: Contiguous axial imaging was performed from the skull base to vertex without intravenous administration of contrast. Coronal reformatted images performed at CT scanner DLP: 672.25 mGy-cm FINDINGS: There is a chronic left MCA territory infarct unchanged since prior study. There is no evidence of acute intracranial hemorrhage or acute territorial infarction. No abnormal mass effect or midline shift is seen. Frankel to white matter differentiation is well preserved. No extra- axial fluid collections are identified. Ventricles and sulci are normal. There are small vascular wall calcification of the internal carotid arteries at the carotid artery siphon bilaterally. The osseous structures and soft tissues are normal. The mastoid air cells and visualized portions of the paranasal sinuses are well aerated. IMPRESSION: No acute intracranial pathology. DICTATED BY: CLAUDE PEARSON MD DATE/TIME DICTATED:11/08/162111 APPLIED ANTHROPOLOGIST:MISSY Initial ED EKG: none Comments: Patient's workup is negative for acute findings. She was noted to have a significantly elevated benzodiazepine level on her urine and I suspect that she is taking more than prescribed leading to her current state of lethargy. Patient was reevaluated multiple times and each time she is more awake and alert , currently she is using the phone in her room and appears in no acute distress. I do not feel as though she requires any further testing or imaging at this time, she is stable for discharge home and is awaiting her to pick her up. (PA KING) Hand-Off Endorsed To: SERG GOLDSMITH DO Endorsed Time: 0700 Pending: consult Comments: Patient reports feeling depressed with suicidal ideation by overdose due to inadequacy of being unable to perform normal daily chores. (LIYAH JACOBSON MD) Departure Departure Condition: Stable Referrals: MACRINA LOPEZ,ELLIOT Mcguire (PCP/Family) Additional Instructions: Take your medications only as prescribed Continue all your regular medications Departure Forms: Customer Survey General Discharge Information (PA KING) Departure Disposition: STILL A PATIENT Clinical Impression Primary Impression: Benzodiazepine overdose of undetermined intent Qualifiers: Encounter type: initial encounter Qualified Code: T42.4X4A - Poisoning by benzodiazepines, undetermined, initial encounter Secondary Impressions: Depression with suicidal ideation PA/SOFTWARE PROGRAMMER Co-Sign Statement Statement: ED Attending supervision documentation- x I saw and evaluated the patient. I have also reviewed all the pertinent lab results and diagnostic results. I agree with the findings and the plan of care as documented in the PA's/SOFTWARE PROGRAMMER's documentation. [] I have reviewed the ED Record and agree with the PA's/SOFTWARE PROGRAMMER's documentation. [] Additions or exceptions (if any) to the PAs/SOFTWARE PROGRAMMER's note and plan are summarized below: [] (LIYAH JACOBSON MD) Departure Comments 11/09/16 9 AM The patient was signed out to me by Dr. Jacobson at 7 AM. She has a history of a seizure disorder is also status post CVA. She has a high level of benzodiazepines. She is expressing suicidal ideation. She is pending crisis consultation (SERG GOLDSMITH DO)
[2016-11-08 20:57] LABS: ABSOLUTE BASOPHIL COUNT 0 /CUMM (0.0-0.2); ABSOLUTE EOSINOPHIL COUNT 0.4 /CUMM (0.0-0.7); ABSOLUTE GRANULOCYTE CT 3.4 /CUMM (1.4-6.5); ABSOLUTE LYMPH COUNT 2.2 /CUMM (1.2-3.4); ABSOLUTE MONOCYTE COUNT 0.5 /CUMM (0.10-0.60); BASOPHIL % 0.3 % (0.0-2.0); EOSINOPHIL % 6.1 % (0-5); GRANULOCYTE % 52.1 % (42.2-75.2); HEMATOCRIT 34.5 % (37-47); MEAN CORPUSCULAR HGB 25.3 PG (27.0-31.0); MEAN CORPUSCULAR HGB CONC 32.2 G/DL (33.0-37.0); MEAN CORPUSCULAR VOLUME 78.8 FL (81.0-99.0); MEAN PLATELET VOLUME 7.8 FL (7.4-10.4); PLATELET COUNT 256 /CUMM (130-400); RED BLOOD CELL CT 4.38 /CUMM (4.20-5.40); WHITE BLOOD CELL COUNT 6.5 /CUMM (4.8-10.8)
--- NOTE | 2016-11-08 21:18 | CT SCAN REPORT ---
EXAMINATION: CT HEAD WITHOUT CONTRAST CLINICAL INFORMATION: Fall. Injury. COMPARISON: CT head 10/05/2016 TECHNIQUE: Contiguous axial imaging was performed from the skull base to vertex without intravenous administration of contrast. Coronal reformatted images performed at CT scanner DLP: 672.25 mGy-cm FINDINGS: There is a chronic left MCA territory infarct unchanged since prior study. There is no evidence of acute intracranial hemorrhage or acute territorial infarction. No abnormal mass effect or midline shift is seen. Frankel to white matter differentiation is well preserved. No extra-axial fluid collections are identified. Ventricles and sulci are normal. There are small vascular wall calcification of the internal carotid arteries at the carotid artery siphon bilaterally. The osseous structures and soft tissues are normal. The mastoid air cells and visualized portions of the paranasal sinuses are well aerated. IMPRESSION: No acute intracranial pathology.
[2016-11-09 17:35] VITALS: BP 103/58
--- NOTE | 2016-11-09 21:22 | ED PSYCH CRISIS CONSULTATION ---
Crisis Consult Basic Assessment Date of Consult: 11/09/16 Responsible Person/Accompanied By: Nadege Blackmon Insurance Authorization: Insurance #1: Insurance name: MEDICARE A Phone number: Policy number: [id number] Group number: Authorization number: ED Provider: Patient's ED Provider: PA KING Primary Care Physician: Patient's PCP: ELLIOT SCHRADER MD PCP's Current Psychiatrist: None Chief Complaint: General Adult Patient's Quote: "I said that because of tension" Present Illness: Patient is a 46 year old female who arrived to the emergency department after experiencing medical symptoms (vomitting, weakness on right side, pain.) Patient is medically cleared by attending physician who requested a crisis consultation after patient expressed suicidal ideation. Patient's boyfriend who resides with her reports she vomitted in her sleep yesterday and also had enuresis. Patient presents drowsy but is oriented to time, place and person. Patient speech is slurred (boyfriend indicates this is consistently how she presents after pain medication is administered.) Patient affect is observed to be flat with depressed mood. Patient indicates her somatic complaints and chronic medical condition ( back pain, gastrointestinal issues, history of cerebrovascular accident) are primary stressors which cause depressive thoughts. Patient reports she has a 23 year old daughter and a 17 year old son. She resides with her boyfriend. Patient 's mother is alive and is in [place], [place]. Patient currently denies suicidal ideation, homicidal ideation and there is no indication of any active psychosis. Patient is impaired by neurological deficits post-stroke. Patient's use of pain medication may also impair her functioning. Patient has no history of suicide attempts. Patient is not currently involved in counseling but is receptive to outpatient therapy. Patient's Address: [address] [place] [address] Other Phone Number: Who Do You Live With? Significant Other Family/Informants Interviewed: Pietrofrienerickson Blackmon Allergies - Coded Allergies: acetaminophen (Intermediate, UPSET STOMACH 10/10/16) PER PATIENT SHE IS ALLERGIC TO ACETAMINOPHEN ibuprofen (Intermediate, ULCERS 10/10/16) cyclobenzaprine (JITTERS 10/10/16) Current Medications - Scheduled Medications Alprazolam 1 MG TABLET 1 TAB PO TIDPRN Anxiety 30 Days (Reported) Entered as Reported by MELISSA HANNAH on 03/01/16 0846 Atorvastatin Calcium 80 MG TABLET 80 MG PO 1700 CHOLESTEROL, AND STROKE 30 Days Prescribed by FEDE LAZARO MD on 03/01/16 Clopidogrel Bisulfate (Clopidogrel) 75 MG TABLET 75 MG PO DAILY STROKE Prevention 30 Days (Reported) Entered as Reported by MELISSA HANNAH on 03/01/16 1207 Dexlansoprazole (Dexilant) 60 MG CAP.BP 1 CAP PO DAILY HEARTBURN (Reported ) Entered as Reported by ISABELLE NICKERSON MD on 07/14/16 2039 Levetiracetam (Keppra) 750 MG TABLET 1 TAB PO BID SEIZURE 60 Days Prescribed by JODI COTTO on 07/18/16 Lorazepam (Ativan) 1 MG TABLET 1 TAB PO TID anxiety #10 TAB Prescribed by PA PENA on 08/13/16 Morphine Sulfate (Morphine Sulfate ER) 15 MG TABLET.ER 15 MG PO DAILY PAIN 30 Days (Reported) Entered as Reported by MELISSA HANNAH on 03/01/16 1144 Morphine Sulfate 15 MG TABLET 1 TAB PO TID PAIN 30 Days (Reported) Entered as Reported by JODI COTTO on 07/15/16 1632 Scheduled PRN Medications Alprazolam 2 MG TABLET 1 TAB PO TID PRN ANXIETY #20 TAB Prescribed by CATHRYN RICHMOND MD on 08/12/16 Alprazolam 1 MG TABLET 1 TAB PO TIDPRN PRN ANXIETY #10 TAB Prescribed by CATHRYN RICHMOND MD on 09/07/16 Lorazepam (Ativan) 1 MG TABLET 1 TAB PO BID PRN ANXIETY/ATTACKS #10 TAB Prescribed by CATHRYN RICHMOND MD on 10/05/16 Morphine Sulfate 15 MG TABLET 1 TAB PO BIDP PRN PAIN #10 TAB Prescribed by CATHRYN RICHMOND MD on 09/07/16 Past History Past Medical History Neurological: seizure (ON KEPPRA ATIVAN but neg EEG), CVA X 2 RESIDUAL WEAKNESS R SIDE EENT: NONE Cardiovascular: NONE Respiratory: NONE Gastrointestinal: GASTRIC BYPASS STOMACH ULCERS Hepatic: NONE Renal: NONE Musculoskeletal: FREQ FALLS "CRUSHED SPINE" Psychiatric: anxiety Endocrine: NONE Blood Disorders: NONE Cancer(s): 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 Physical Limitations (Interventions): Mobility restricted after stroke Psychiatric Treatment History Psych Treatment Psychiatric Treatment Yes Diagnosis by History: Anxiety, depression Substance Use/Abuse History Drug Use/Abuse Substances Used/Abused No First Use Denies Last Used - How much used/taken - How often - For how long - Route of use - Substance Abuse Treatment Substance Abuse Treatment Past Substance Abuse [place] No Inpatient Treatment No Outpatient Treatment No Location of Treatment - Reason for Treatment - Dates of Treatment - Response to Treatment - Comments: - Current Mental Status Mental Status Orientation: Person, Place, Situation Affect: Depressed Speech: Slurred (CVA hx) Neuro-vegetative: Anhedonia, Energy Decreased Appearance Appearance- Dress/Hygiene: Patient was reclined in hospital bed but was able to ambulate to the ED grieving room for assessment. Patient observed to be overweight and was disheveled. Behaviors Thought Process: WNL Thought Content: WNL Memory: WNL Insight: Poor SI/HI Risk Assessment Past Suicidal Ideation/Attempts Yes (Suicidal statement due to pain) Current Suicidal Ideation/Att No (Patient denies) Past Homicidal Ideation/Att: No Current Homicidal Ideation/Attempts No Degree of Intent: None Danger To: Not indicated Gravely Disabled: No Risk Factors: chronic/serious med cond. Lethality Ratin (mild) PTSD Checklist PTSD Done? patient declined ED Management Sitter: Yes Restraints: No (Patient is calm & cooperative) DSM5/PS Stressors/Medical Prob Diagnosis' (DSM 5, Stressors, Medical): F32.9 Unspecified depressive disorder F41.9 Unspecified anxiety disorder Current GAF: 45 Comments: Chronic medical condition Chronic pain Financial stressors Departure Disposition Psych Medical Clearance Date: 11/09/16 Medically Cleared at: 1730 Time Started: 173 Time Ended: 1814 Psychiatrist Consulted: Dr. Kvng LOPEZ, PhD Date Disposition Established: 11/09/16 Plan for Disposition - Modality: Outpatient Facility: [facility] Contact: Patient will follow-up, appt not confirmed Rationale for Disposition: Patient is medically cleared for assessment. Patient denies suicidal ideation / homicidal ideation, and presents alert, oriented, with no indication of psychosis. Patient assessed as low risk of harm to self. Patient's boyfriend is caregiver at home who provides for her medical needs. Patient is receptive to counseling and was provided information card on location and phone number for [facility]'s outpatient psychiatric services. Due to patient's chronic medical conditions / specialist visits - an appointment date+time for [place] psychiat[facility] was not confirmed so she and significant other can plan to follow-up at an appropriate time which is convenient to them. Referrals MACRINA LOPEZ,ELLIOT Mcguire (PCP/Family)
== END 2016-11-09 19:25 ==
LOC: ERH 19:18
PROVIDERS: Physician Assistant Surgical
DX: T42.4X4A Poisoning by benzodiazepines, undetermined, initial encounter (principal); R56.9 Unspecified convulsions; R51 Headache; M25.561 Pain in right knee; R45.1 Restlessness and agitation
CPT/HCPCS: 80307; 96372; 96374; 99291; G0463; G0480; J1200; J1630; J1953

== ENCOUNTER 2016-12-05 18:56 | Emergency (ER) | payer OTHER, MEDICARE ==
[~2016-12-05] VITALS: Ht 167.6 cm; Wt 104.3 kg
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
[2016-12-05 20:03] LABS: ABSOLUTE BASOPHIL COUNT 0 /CUMM (0.0-0.2); ABSOLUTE EOSINOPHIL COUNT 0.5 /CUMM (0.0-0.7); ABSOLUTE GRANULOCYTE CT 3.2 /CUMM (1.4-6.5); ABSOLUTE MONOCYTE COUNT 0.4 /CUMM (0.10-0.60); BASOPHIL % 0.6 % (0.0-2.0); EOSINOPHIL % 8.6 % (0-5); GRANULOCYTE % 51.5 % (42.2-75.2); HEMATOCRIT 31.3 % (37-47); MEAN CORPUSCULAR HGB 25.5 PG (27.0-31.0); MEAN CORPUSCULAR HGB CONC 32.8 G/DL (33.0-37.0); MEAN CORPUSCULAR VOLUME 77.9 FL (81.0-99.0); MEAN PLATELET VOLUME 8.3 FL (7.4-10.4); PLATELET COUNT 192 /CUMM (130-400); RBC DISTRIBUTION WIDTH 19.1 % (11.5-14.5); RED BLOOD CELL CT 4.02 /CUMM (4.20-5.40); WHITE BLOOD CELL COUNT 6.2 /CUMM (4.8-10.8)
--- NOTE | 2016-12-05 20:38 | CT SCAN REPORT ---
CT HEAD WITHOUT IV CONTRAST CT CERVICAL SPINE WITHOUT IV CONTRAST INDICATION: Altered mental status status post seizures. COMPARISON: Head CT 11/08/[address] 08/13/2016. TECHNIQUE: Multidetector CT acquisitions of the head and cervical spine were obtained without IV contrast. Multiplanar reformats were acquired and utilized for image interpretation. FINDINGS: HEAD: There is no intracranial hemorrhage, hydrocephalus, extra-axial surface collection, midline shift, or other herniation pattern. There is a redemonstrated chronic left MCA territory infarct involving portions of the left frontal lobe, the left parietal lobe, left insula, and the left basal ganglia. Associated exvacuodilatation of the left lateral ventricle. No acute infarcts. The basilar cisterns are preserved. No significant soft tissue abnormality. No acute osseous abnormality. The paranasal sinuses and the mastoid air cells are well-aerated. CERVICAL SPINE: There is anatomic alignment of the vertebral bodies and posterior elements. There is no acute fracture and there is no acute subluxation. Moderate disc space loss at the C5-C6 and C6-C7 levels with endplate osteophytes at these levels. Uncovertebral joint spurring results in moderate bilateral foraminal stenosis at C5-C6 The craniocervical and atlantoaxial articulations are normal. There is no prevertebral soft tissue swelling. No significant soft tissue abnormality within the neck. The visualized lung apices are clear. IMPRESSION: 1. No acute intracranial abnormality. Redemonstrated chronic left MCA territory infarct. 2. No acute osseous abnormality within the cervical spine. Cervical spondylosis that is greatest at C5-C6 and C6-C7.
[2016-12-05 23:07] VITALS: BP 124/69
== END 2016-12-05 23:07 ==
LOC: ERH 18:56
PROVIDERS: Emergency Medicine
DX: R56.9 Unspecified convulsions (principal); M47.9 Spondylosis, unspecified
CPT/HCPCS: 80307; G0480; J1953

== ENCOUNTER 2016-12-07 17:13 | Emergency (ER) | payer OTHER, MEDICARE ==
[~2016-12-07] VITALS: Ht 170.2 cm; Wt 105.2 kg
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
[2016-12-07 20:56] VITALS: BP 112/68
== END 2016-12-07 20:56 ==
LOC: ERH 17:13
DX: M25.511 Pain in right shoulder (principal); M25.521 Pain in right elbow; Y04.8XXA Assault by other bodily force, initial encounter
CPT/HCPCS: 73030-RT; 73080-RT; 81025

== ENCOUNTER 2017-01-03 14:35 | Emergency (ER) | payer OTHER, MEDICARE ==
[~2017-01-03] VITALS: Ht 175.3 cm; Wt 117.9 kg
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
[2017-01-03 15:06] LABS: ABSOLUTE BASOPHIL COUNT 0 /CUMM (0.0-0.2); ABSOLUTE EOSINOPHIL COUNT 0.4 /CUMM (0.0-0.7); ABSOLUTE GRANULOCYTE CT 3.5 /CUMM (1.4-6.5); ABSOLUTE LYMPH COUNT 2.1 /CUMM (1.2-3.4); ABSOLUTE MONOCYTE COUNT 0.4 /CUMM (0.10-0.60); BASOPHIL % 0.6 % (0.0-2.0); EOSINOPHIL % 5.7 % (0-5); GRANULOCYTE % 54.6 % (42.2-75.2); HEMATOCRIT 33.6 % (37-47); MEAN CORPUSCULAR HGB 25.4 PG (27.0-31.0); MEAN CORPUSCULAR HGB CONC 32.5 G/DL (33.0-37.0); MEAN CORPUSCULAR VOLUME 78.2 FL (81.0-99.0); MEAN PLATELET VOLUME 8.5 FL (7.4-10.4); PLATELET COUNT 216 /CUMM (130-400); RBC DISTRIBUTION WIDTH 19.3 % (11.5-14.5); RED BLOOD CELL CT 4.29 /CUMM (4.20-5.40); WHITE BLOOD CELL COUNT 6.3 /CUMM (4.8-10.8)
[2017-01-03] MEDS ORDERED: NARCAN4 MG NAS (16:26)
[2017-01-03] MEDS ORDERED: GABAPENTIN300 M2 PO (16:26)
[2017-01-03 17:25] VITALS: BP 144/70
== END 2017-01-03 17:32 ==
LOC: ERH 14:35
PROVIDERS: Physician Assistant
DX: R56.9 Unspecified convulsions (principal)
CPT/HCPCS: 93005; 93010; 96374

== ENCOUNTER 2017-01-03 23:37 | Emergency (ER) | payer OTHER, MEDICARE ==
[~2017-01-03 23:37] MED LIST changes: +GABAPENTIN300 M2 PO; +NARCAN4 MG NAS
[2017-01-03 23:49] VITALS: BP 118/68
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
--- NOTE | 2017-01-04 01:33 | CT SCAN REPORT ---
EXAMINATION: CT HEAD WITHOUT CONTRAST CLINICAL INFORMATION: Headache, chronic pain COMPARISON: 12/07/2016 TECHNIQUE: Contiguous axial imaging was performed from the skull base to vertex without intravenous administration of contrast. DLP: 564.30 mGy-cm FINDINGS: There is no evidence of acute intracranial hemorrhage or territorial infarction. There is a redemonstrated region of chronic infarct in the left MCA territory. No abnormal mass effect or midline shift is seen. Frankel to white matter differentiation is well preserved. No extra-axial fluid collections are identified. There is mild ex vacuo dilatation of the left lateral ventricle, similar to prior. The osseous structures and soft tissues are normal. The mastoid air cells and visualized portions of the paranasal sinuses are well aerated. IMPRESSION: No acute intracranial pathology. Chronic left MCA territory infarct.
== END 2017-01-04 02:39 ==
LOC: ERH 23:37
DX: R56.9 Unspecified convulsions (principal); G89.29 Other chronic pain; I69.398 Other sequelae of cerebral infarction

== ENCOUNTER 2017-01-05 16:46 | Emergency (ER) | payer OTHER, MEDICARE ==
--- NOTE | 2017-01-05 17:03 | ED GENERAL ADULT ---
History of Present Illness General Chief Complaint: Seizure Stated Complaint: S/P SEIZURE Source: patient Exam Limitations: no limitations Vital Signs & Intake/Output Vital Signs & Intake/Output Vital Signs Date Time Temp Pulse Resp B/P B/P Pulse O2 O2 Flow FiO2 Mean Ox Delivery Rate 01/05 1910 96.9 82 18 158/76 97 Room Air 01/05 1650 95.3 87 20 163/74 100 Room Air Allergies Coded Allergies: acetaminophen (Intermediate, UPSET STOMACH 12/07/16) PER PATIENT SHE IS ALLERGIC TO ACETAMINOPHEN ibuprofen (Intermediate, ULCERS 12/07/16) cyclobenzaprine (JITTERS 12/07/16) Reconcile Medications Alprazolam 2 MG TABLET 1 TAB PO TID PRN ANXIETY TWENTY....[id number] Clopidogrel Bisulfate (Clopidogrel) 75 MG TABLET 75 MG PO DAILY STROKE Prevention (Reported) Dexlansoprazole (Dexilant) 60 MG CAP.DRYiselBP 1 CAP PO DAILY HEARTBURN (Reported ) Gabapentin 300 MG CAPSULE 1 CAP PO TID NERVE PAIN (Reported) Levetiracetam (Keppra) 750 MG TABLET 1 TAB PO BID SEIZURE Morphine Sulfate (Morphine Sulfate ER) 15 MG TABLET.ER 15 MG PO DAILY PAIN ( Reported) Morphine Sulfate 15 MG TABLET 1 TAB PO TID PAIN (Reported) Naloxone HCl (Narcan) 4 MG/ACTUATION SPRAY 4 MG DEJA AD PRN OPIOID INDUCED RESP DEPRESSION (Reported) Triage Note: PT BIBA FROM HOME S/P WITNESSED SEIZURE. VS WNL. SEIZURE PRECAUTIONS IN PLACE. PENDING MD REYES. Triage Nurses Notes Reviewed? yes Onset: Just prior to arrival Duration: just prior to arrival Timing: recent history Injury Environment: home Severity: severe No Modifying Factors: none HPI: Patient is a 46-year-old female with history of chronic pain and seizure disorder presenting to the emergency department complaining of seizure prior to arrival. She reports that she had seizure this morning and fell and hit her head on the sink. She also reports that she landed on her right knee. Denies any loss of consciousness. Nothing seems to make the symptoms better, movement makes the pain worse. Denies any headaches or nausea or vomiting. No chest pain or palpitations. No shortness of breath. Patient also reporting chronic back pain, asking for medications. (ADAM HOLLOWAY,VIRGEN) Past History Travel History Traveled to [place] past 21 day No Medical History Any Pertinent Medical History? 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 No (VIRGEN LOREDO) Review of Systems Review of Systems Constitutional: Reports: no symptoms. Comments Review of systems: See HPI, All other systems negative. Constitutional, no chills fever or weight loss HEENT: No visual changes no sore throat no congestion Cardiovascular: No chest pain ,palpitation , orthopnea or ankle swelling Skin, no jaundice no rashes Respiratory: No dyspnea cough sputum or hemoptysis GI: No nausea no vomiting : No dysuria No hematuria Muscle skeletal: no neck pain, Neurologic: No numbness no increased confusion Psych: No stress anxiety or depression,. Heme/endocrine: No bruising no bleeding no polyuria or polydipsia Immunology: No splenectomy or history of AIDS (VIRGEN LOREDO) Physical Exam Physical Exam General Appearance: fatigued Comments: Fatigued person in no acute distress HEENT: Normal EENT exam, extraocular motion intact, no nystagmus. Pupils equally round and reactive to light and accommodation. Nose is atraumatic. External auditory canal and Tympanic membranes clear. Pharynx normal. No swelling or edema. No step-off or bogginess palpated over entire scalp. Neck: Supple, no lymphadenopathy, normal range of motion without pain or tenderness, no C-spine tenderness. Back: Tender to palpation along the lumbar paraspinal muscles. Limited range of motion. no spinal tenderness Cardiovascular: Regular rate and rhythms no murmurs rubs or gallops, normal JVP Respiratory: Chest nontender. No respiratory distress.breath sounds clear to auscultation bilaterally Abdomen: Soft, nontender nondistended, no appreciable organomegaly. Normal bowel sounds. No ascites, no rebound or guarding. Extremity: No edema, no calf tenderness to palpation, normal and equal pulses. Tender to palpation of the right patella. Residual weakness noted to the right upper and lower extremity, deficit from old stroke. Neuro: Alert oriented x3, motor sensory normal, cranial nerves II through XII grossly intact. Skin: No appreciable rash on exposed skin, skin is warm and dry. Psych: Mood and affect is normal, memory and judgment is normal. Core Measures ACS in differential dx? No CVA/TIA Diagnosis: No Severe Sepsis Present: No Septic Shock Present: No (VIRGEN LOREDO) Progress Differential Diagnoses I considered the following diagnoses in my evaluation of the patient: Seizure disorder, electrolyte abnormality, medication seeking, dehydration, intracranial hemorrhage, skull fracture, knee fracture Plan of Care: Orders Procedure Date/time Status Add-on Test (ER Only) 01/05 1745 Active Add-on Test (ER Only) 01/05 174 Active HUMAN BETA HCG SCREEN 01/05 172 Complete TROPONIN LEVEL 01/05 171 Complete PROLACTIN 01/05 171 Complete COMPREHENSIVE METABOLIC PANEL 01/05 171 Complete CBC WITHOUT DIFFERENTIAL 01/06 1712 Complete EKG 01/05 171 Active Laboratory Tests 01/05/17 1721: Anion Gap 13, Estimated GFR > 60, BUN/Creatinine Ratio 15.7, Glucose 78, Calcium 8.9, Total Bilirubin 0.5, AST 13 L, ALT 29, Alkaline Phosphatase 76, Troponin I < 0.01, Total Protein 6.9, Albumin 3.7, Globulin 3.2, Albumin/Globulin Ratio 1.2 , Prolactin 16.9, Total Beta HCG NEGATIVE, CBC w Diff NO MAN DIFF REQ, RBC 4.20, MCV 78.4 L, MCH 25.2 L, RDW 18.8 H, MPV 8.7, Gran % 50.2, Lymphocytes % 34.8, Monocytes % 8.9, Eosinophils % 5.8 H, Basophils % 0.3, Absolute Granulocytes 3.7, Absolute Lymphocytes 2.6, Absolute Monocytes 0.7 H, Absolute Eosinophils 0.4, Absolute Basophils 0, PUBS MCHC 32.2 L Diagnostic Imaging: Viewed by Me: Radiology Read, CT Scan. Discussed w/RAD: Radiology Read, CT Scan. Radiology Impression: ATIENT: ANA CRISTINA LAMBERT PRESENT AGE: 46 PATIENT ACCOUNT NO: [id number] : 68 LOCATION: ER ORDERING PHYSICIAN: VIRGEN HOLLOWAY SERVICE DATE: 01/05/17 EXAM TYPE: CAT - CT CERV SPINE WO IV CONTRAST EXAMINATION: CT HEAD WITHOUT CONTRAST CLINICAL INFORMATION: Fall, pain COMPARISON: None TECHNIQUE: Helical noncontrast CT imaging was acquired through the cervical spine and source images were reviewed along with axial reconstructions and sagittal and coronal MPRs. DLP: 995.83 mGy- cm. FINDINGS: CT CERVICAL SPINE: The vertebral body height and alignment of cervical spine are normal. There is mild narrowing of C5-C6 and C6-C7 intervertebral disc space height with marginal osteophytosis of adjacent vertebral endplates. The findings are degenerative in nature. The intervertebral disc spaces are otherwise well preserved. The posterior elements are intact. There is no acute fracture or dislocation of the cervical spine. The paraspinal soft tissue is unremarkable. The craniocervical, cervicothoracic junctions are within normal limits. . The visualized lungs are clear. IMPRESSION: 1. No acute fracture or dislocation of the cervical spine. 2. Mild degenerative disc disease at C5-C6 and C6-C7 levels. DICTATED BY: LONNY SEVILLA MD DATE/TIME DICTATED:1941 MOLD CLEANER:MISSY DATE/TIME TRANSCRIBED:01/05/171941 CONFIDENTIAL, DO NOT COPY WITHOUT APPROPRIATE AUTHORIZATION. <Electronically signed in Other Vendor System> SIGNED BY: LONNY SEVILLA MD 01/05/171952, RESENT AGE: 46 PATIENT ACCOUNT NO: [id number] : 68 LOCATION: [facility] ORDERING PHYSICIAN: VIRGEN HOLLOWAY SERVICE DATE: 01/05/17 EXAM TYPE: CAT - CT CERV SPINE WO IV CONTRAST EXAMINATION: CT HEAD WITHOUT CONTRAST CLINICAL INFORMATION: Fall, pain COMPARISON: None TECHNIQUE: Helical noncontrast CT imaging was acquired through the cervical spine and source images were reviewed along with axial reconstructions and sagittal and coronal MPRs. DLP: 995.83 mGy-cm. FINDINGS: CT CERVICAL SPINE: The vertebral body height and alignment of cervical spine are normal. There is mild narrowing of C5-C6 and C6- C7 intervertebral disc space height with marginal osteophytosis of adjacent vertebral endplates. The findings are degenerative in nature. The intervertebral disc spaces are otherwise well preserved. The posterior elements are intact. There is no acute fracture or dislocation of the cervical spine. The paraspinal soft tissue is unremarkable. The craniocervical, cervicothoracic junctions are within normal limits. . The visualized lungs are clear. IMPRESSION: 1. No acute fracture or dislocation of the cervical spine. 2. Mild degenerative disc disease at C5-C6 and C6-C7 levels. DICTATED BY: LONNY SEVILLA MD DATE/TIME DICTATED:1941 MOLD CLEANER:MISSY DATE/TIME TRANSCRIBED:01/05/171941 CONFIDENTIAL, DO NOT COPY WITHOUT APPROPRIATE AUTHORIZATION. <Electronically signed in Other Vendor System> SIGNED BY: LONNY SEVILLA MD 01/05/171952, PATIENT: ANA CRISTINA LAMBERT PRESENT AGE: 46 PATIENT ACCOUNT NO: [id number] : 68 LOCATION: [facility] ORDERING PHYSICIAN: VIRGEN HOLLOWAY SERVICE DATE: 01/05/17 EXAM TYPE: RAD - XRY-KNEE COMPLETE RIGHT EXAMINATION: XR KNEE, RIGHT CLINICAL INFORMATION: Pain status post fall. COMPARISON: Contralateral left knee dated 10/15/2015. Right knee films dated . TECHNIQUE: Four views of the right knee. FINDINGS: No acute fracture or dislocation. No significant knee joint effusion. Mild tricompartmental degenerative changes with joint space narrowing, spurring and small cystic changes seen, similar to the previous exam. No joint calcifications are seen. IMPRESSION: 1. No acute fracture or effusion. 2. Mild tricompartmental osteoarthritic changes in the right knee, similar to prior exam from 2013. DICTATED BY: ZOE ADLER MD DATE/TIME DICTATED:01/05/171808 MOLD CLEANER:MISSY DATE/TIME TRANSCRIBED:01/05/171808 CONFIDENTIAL, DO NOT COPY WITHOUT APPROPRIATE AUTHORIZATION. <Electronically signed in Other Vendor System> SIGNED BY: ZOE ADLER MD 01/05/171815 Initial ED EKG: NSR (76 bpm) Prior EKG: unchanged Comments: Patient has no neuro deficits compared to baseline deficits of weakness on the right extremity, upper and lower. CT of the head is negative for anything acute. Blood work unremarkable. EKG is unchanged. Patient continually requesting pain medication during her emergency department stay. She was given gabapentin with some relief. Patient was then noted sleeping on the stretcher. She was informed of all lab work results and imaging study results. We will call her family to pick her up. Patient has been seen and evaluated in the emergency department for similar symptoms over the past several days. (VIRGEN LOREDO) Departure Departure Time of Disposition: 1957 Disposition: HOME OR SELF CARE Condition: Stable Clinical Impression Primary Impression: Seizure Secondary Impressions: Chronic pain Qualifiers: Chronic pain type: other chronic pain Qualified Code: G89.29 - Other chronic pain Referrals: MACRINA LOPEZ,ELLIOT Mcguire (PCP/Family) Additional Instructions: Follow-up with your primary care physician call to make appointment. Continue previously prescribed medication return for worsening symptoms or concerns. Departure Forms: Customer Survey General Discharge Information (VIRGEN LOREDO) PA/SHAKE MAKER Co-Sign Statement Statement: ED Attending supervision documentation- [] I saw and evaluated the patient. I have also reviewed all the pertinent lab results and diagnostic results. I agree with the findings and the plan of care as documented in the PA's/SHAKE MAKER's documentation. [X] I have reviewed the ED Record and agree with the PA's/SHAKE MAKER's documentation. [] Additions or exceptions (if any) to the PAs/SHAKE MAKER's note and plan are summarized below: [] (ABDULAZIZ LOPEZ,DRISS) Critical Care Note Critical Care Note Critical Care Time: non-applicable (VIRGEN LOREDO)
[2017-01-05 17:34] LABS: ABSOLUTE BASOPHIL COUNT 0 /CUMM (0.0-0.2); ABSOLUTE EOSINOPHIL COUNT 0.4 /CUMM (0.0-0.7); ABSOLUTE GRANULOCYTE CT 3.7 /CUMM (1.4-6.5); ABSOLUTE LYMPH COUNT 2.6 /CUMM (1.2-3.4); ABSOLUTE MONOCYTE COUNT 0.7 /CUMM (0.10-0.60); BASOPHIL % 0.3 % (0.0-2.0); EOSINOPHIL % 5.8 % (0-5); GRANULOCYTE % 50.2 % (42.2-75.2); HEMATOCRIT 32.9 % (37-47); MEAN CORPUSCULAR HGB 25.2 PG (27.0-31.0); MEAN CORPUSCULAR HGB CONC 32.2 G/DL (33.0-37.0); MEAN CORPUSCULAR VOLUME 78.4 FL (81.0-99.0); MEAN PLATELET VOLUME 8.7 FL (7.4-10.4); PLATELET COUNT 206 /CUMM (130-400); RBC DISTRIBUTION WIDTH 18.8 % (11.5-14.5); WHITE BLOOD CELL COUNT 7.4 /CUMM (4.8-10.8)
--- NOTE | 2017-01-05 18:16 | RADIOLOGY REPORT ---
EXAMINATION: XR KNEE, RIGHT CLINICAL INFORMATION: Pain status post fall. COMPARISON: Contralateral left knee dated 10/15/2015. Right knee films dated 10/29/2013. TECHNIQUE: Four views of the right knee. FINDINGS: No acute fracture or dislocation. No significant knee joint effusion. Mild tricompartmental degenerative changes with joint space narrowing, spurring and small cystic changes seen, similar to the previous exam. No joint calcifications are seen. IMPRESSION: 1. No acute fracture or effusion. 2. Mild tricompartmental osteoarthritic changes in the right knee, similar to prior exam from 2013.
[2017-01-05 19:10] VITALS: BP 158/76
--- NOTE | 2017-01-05 19:23 | CT SCAN REPORT ---
EXAMINATION: CT HEAD WITHOUT CONTRAST CLINICAL INFORMATION: Fall, head trauma COMPARISON: 01/04/2017, 08/12/[address] scan TECHNIQUE: Contiguous axial imaging was performed from the skull base to vertex without intravenous administration of contrast. DLP: 564.30 mGy-cm FINDINGS: Redemonstration of the left MCA old infarct with dilatation of adjacent CSF space and dilatation of the left lateral ventricle. There is no evidence of acute intracranial hemorrhage or acute territorial infarction. No midline shift is seen. No extra-axial fluid collections are identified. The ventricles are normal in size. The osseous structures and soft tissues are normal. The mastoid air cells and visualized portions of the paranasal sinuses are well aerated. IMPRESSION: 1. No acute intracranial hemorrhage or acute skull fracture. 2. 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
--- NOTE | 2017-01-05 19:53 | CT SCAN REPORT ---
EXAMINATION: CT HEAD WITHOUT CONTRAST CLINICAL INFORMATION: Fall, pain COMPARISON: None TECHNIQUE: Helical noncontrast CT imaging was acquired through the cervical spine and source images were reviewed along with axial reconstructions and sagittal and coronal MPRs. DLP: 995.83 mGy-cm. FINDINGS: CT CERVICAL SPINE: The vertebral body height and alignment of cervical spine are normal. There is mild narrowing of C5-C6 and C6-C7 intervertebral disc space height with marginal osteophytosis of adjacent vertebral endplates. The findings are degenerative in nature. The intervertebral disc spaces are otherwise well preserved. The posterior elements are intact. There is no acute fracture or dislocation of the cervical spine. The paraspinal soft tissue is unremarkable. The craniocervical, cervicothoracic junctions are within normal limits. . The visualized lungs are clear. IMPRESSION: 1. No acute fracture or dislocation of the cervical spine. 2. Mild degenerative disc disease at C5-C6 and C6-C7 levels.
== END 2017-01-05 20:30 ==
LOC: ERH 16:46
PROVIDERS: Physician Assistant
DX: R56.9 Unspecified convulsions (principal); G89.29 Other chronic pain; M25.561 Pain in right knee; S09.90XA Unspecified injury of head, initial encounter; W19.XXXA Unspecified fall, initial encounter; W22.09XA Striking against other stationary object, initial encounter; Y93.9 Activity, unspecified
CPT/HCPCS: 73562-RT; 93005; 93010; 96374; J2405

== ENCOUNTER 2017-02-02 20:39 | Emergency (ER) | payer OTHER, MEDICARE ==
[~2017-02-02] VITALS: Ht 167.6 cm; Wt 98.9 kg
--- NOTE | 2017-02-02 21:28 | ED AMS/SEIZURE/WEAK/DIZZY ---
History of Present Illness General Chief Complaint: Seizure Stated Complaint: "PER PT SEIZURE" Source: patient, old records Exam Limitations: no limitations Vital Signs & Intake/Output Vital Signs & Intake/Output Vital Signs Date Time Temp Pulse Resp B/P B/P Pulse O2 O2 Flow FiO2 Mean Ox Delivery Rate 02/020 Room Air Room Air 02/02 2059 97.9 87 18 109/65 96 Room Air Allergies Coded Allergies: acetaminophen (Intermediate, UPSET STOMACH 12/07/16) PER PATIENT SHE IS ALLERGIC TO ACETAMINOPHEN ibuprofen (Intermediate, ULCERS 12/07/16) cyclobenzaprine (JITTERS 12/07/16) Reconcile Medications Alprazolam 2 MG TABLET 1 TAB PO TID PRN ANXIETY TWENTY....[id number] Clopidogrel Bisulfate (Clopidogrel) 75 MG TABLET 75 MG PO DAILY STROKE Prevention (Reported) Dexlansoprazole (Dexilant) 60 MG CAP.DR.BP 1 CAP PO DAILY HEARTBURN (Reported ) Gabapentin 300 MG CAPSULE 1 CAP PO TID NERVE PAIN (Reported) Levetiracetam (Keppra) 750 MG TABLET 1 TAB PO BID SEIZURE Morphine Sulfate (Morphine Sulfate ER) 15 MG TABLET.ER 15 MG PO DAILY PAIN ( Reported) Morphine Sulfate 15 MG TABLET 1 TAB PO TID PAIN (Reported) Naloxone HCl (Narcan) 4 MG/ACTUATION SPRAY 4 MG DEJA AD PRN OPIOID INDUCED RESP DEPRESSION (Reported) Triage Note: PT TO TRIAGE BROUGHT IN BY BOYFRIEND WITH C/O 5 SEIZURES TODAY. HX OF SEIZURES,CVS. PT TO ROOM 8 BY WHEELCHAIR. VSS. Triage Nurses Notes Reviewed? yes Onset: Abrupt Duration: day(s): (1) Timing: no prior history Injury Environment: home Severity: mild No Modifying Factors: none Associated Symptoms: ANXIETY, SEIZURE HPI: This is a 46-year-old female with history of TIA, reported seizure disorder presents from home for chief complaint of seizures today. Patient patient does not know him the seizures he had. She is on Xanax 2 mg 3 times a day and states that she took her last dose this morning. She is unsure if she is on Keppra which was last prescribed in October. Patient denies any fever or chills. She denies any chest pain or shortness of breath. Past History Travel History Traveled to [place] past 21 day No Medical History Any Pertinent Medical History? 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 No Review of Systems Review of Systems Constitutional: Denies: chills, malaise. EENTM: Denies: double vision. Respiratory: Denies: cough, short of breath. Cardiovascular: Denies: chest pain. GI: Denies: abdominal pain. Genitourinary: Denies: discharge, dysuria. Musculoskeletal: Reports: no symptoms. Skin: Reports: no symptoms. Neurological/Psychological: Reports: see HPI (SEIZURE), anxiety. Denies: confusion. Hematologic/Endocrine: Reports: no symptoms. Immunologic/Allergic: Reports: no symptoms. All Other Systems: Reviewed and Negative Physical Exam Physical Exam General Appearance: well developed/nourished, alert, awake, anxious, mild distress Head: atraumatic, normal appearance Eyes: Bilateral: normal appearance, PERRL, EOMI. Ears, Nose, Throat: POOR DENTITION Neck: normal inspection, supple, full range of motion Respiratory: normal breath sounds, chest non-tender, no respiratory distress Cardiovascular: regular rate/rhythm Peripheral Pulses: 2+ radial (R), 2+ radial (L) Gastrointestinal: soft, non-tender Back: normal inspection, normal range of motion Extremities: normal range of motion Neurologic/Psych: no motor/sensory deficits, awake, alert, oriented x 3, STUTTERING SPEECH Skin: intact, normal color, warm/dry Core Measures ACS in differential dx? No CVA/TIA Diagnosis: No Severe Sepsis Present: No Septic Shock Present: No Progress Differential Diagnosis: seizure disorder, BENZODIAZEPINE DEPENDENCE, ANXIETY Plan of Care: Orders Procedure Date/time Status URINE DRUGS OF ABUSE 02/03 2128 Complete PROLACTIN 02/03 2128 Complete COMPREHENSIVE METABOLIC PANEL 02/03 2128 Complete CBC WITHOUT DIFFERENTIAL 02/03 2128 Complete Current Medications Sig/Isabel Start time Last Medication Dose Stop Time Status Admin Alprazolam 2 MG ONCE ONE 02/02 2315 UNVr (Xanax) 02/03 2316 Laboratory Tests 02/02/17 2231: Urine Opiates Screen 1408.00, Methadone Screen < 40, Barbiturate Screen < 60, Ur Phencyclidine Scrn < 6.00, Amphetamines Screen < 100, U Benzodiazepines Scrn > 800 H, Urine Cocaine Screen < 50, Urine Cannabis Screen 49.20 02/02/172205: Anion Gap 10, Estimated GFR > 60, BUN/Creatinine Ratio 17.1, Glucose 96, Calcium 8.8, Total Bilirubin 0.5, AST 12 L, ALT 25, Alkaline Phosphatase 71, Total Protein 6.9, Albumin 3.8, Globulin 3.1, Albumin/Globulin Ratio 1.2, Prolactin 11.5, CBC w Diff NO MAN DIFF REQ, RBC 4.04 L, MCV 78.2 L, MCH 25.3 L, RDW 19.0 H, MPV 8.5, Gran % 56.1, Lymphocytes % 30.8, Monocytes % 6.8, Eosinophils % 5.6 H, Basophils % 0.7, Absolute Granulocytes 3.9, Absolute Lymphocytes 2.1, Absolute Monocytes 0.5, Absolute Eosinophils 0.4, Absolute Basophils 0, PUBS MCHC 32.3 L Initial ED EKG: none Departure Departure Time of Disposition: 2301 Disposition: HOME OR SELF CARE Condition: Stable Clinical Impression Primary Impression: Seizure Secondary Impressions: Anxiety Referrals: MACRINA LOPEZ,ELLIOT Mcguire (PCP/Family) Additional Instructions: Please continue your regularly prescribed medications. Follow up with her doctor in the office. Return as needed. Departure Forms: Customer Survey General Discharge Information
[2017-02-02 22:12] LABS: ABSOLUTE BASOPHIL COUNT 0 /CUMM (0.0-0.2); ABSOLUTE EOSINOPHIL COUNT 0.4 /CUMM (0.0-0.7); ABSOLUTE GRANULOCYTE CT 3.9 /CUMM (1.4-6.5); ABSOLUTE LYMPH COUNT 2.1 /CUMM (1.2-3.4); ABSOLUTE MONOCYTE COUNT 0.5 /CUMM (0.10-0.60); BASOPHIL % 0.7 % (0.0-2.0); EOSINOPHIL % 5.6 % (0-5); GRANULOCYTE % 56.1 % (42.2-75.2); HEMATOCRIT 31.6 % (37-47); MEAN CORPUSCULAR HGB 25.3 PG (27.0-31.0); MEAN CORPUSCULAR HGB CONC 32.3 G/DL (33.0-37.0); MEAN CORPUSCULAR VOLUME 78.2 FL (81.0-99.0); MEAN PLATELET VOLUME 8.5 FL (7.4-10.4); PLATELET COUNT 204 /CUMM (130-400); RED BLOOD CELL CT 4.04 /CUMM (4.20-5.40); WHITE BLOOD CELL COUNT 6.9 /CUMM (4.8-10.8)
[2017-02-02 23:19] VITALS: BP 118/64
== END 2017-02-02 23:20 ==
LOC: ERH 20:39
PROVIDERS: Emergency Medicine
DX: R56.9 Unspecified convulsions (principal); F41.9 Anxiety disorder, unspecified
CPT/HCPCS: 80307

== ENCOUNTER 2017-03-02 12:38 | Emergency (ER) | payer OTHER, MEDICARE ==
[2017-03-02 13:21] LABS: ABSOLUTE BASOPHIL COUNT 0.1 /CUMM (0.0-0.2); ABSOLUTE EOSINOPHIL COUNT 0.3 /CUMM (0.0-0.7); ABSOLUTE GRANULOCYTE CT 5.9 /CUMM (1.4-6.5); ABSOLUTE LYMPH COUNT 2.2 /CUMM (1.2-3.4); ABSOLUTE MONOCYTE COUNT 0.6 /CUMM (0.10-0.60); BASOPHIL % 0.6 % (0.0-2.0); EOSINOPHIL % 3.1 % (0-5); GRANULOCYTE % 65.3 % (42.2-75.2); HEMATOCRIT 32.2 % (37-47); MEAN CORPUSCULAR HGB 25.1 PG (27.0-31.0); MEAN CORPUSCULAR HGB CONC 32.5 G/DL (33.0-37.0); MEAN CORPUSCULAR VOLUME 77.3 FL (81.0-99.0); MEAN PLATELET VOLUME 8.5 FL (7.4-10.4); PLATELET COUNT 212 /CUMM (130-400); RBC DISTRIBUTION WIDTH 18.6 % (11.5-14.5); RED BLOOD CELL CT 4.16 /CUMM (4.20-5.40)
--- NOTE | 2017-03-02 13:50 | ED GI/GU/ABDOMINAL COMPLAINT ---
History of Present Illness General Chief Complaint: Abdominal Pain/Flank Pain Stated Complaint: ABD PAIN Source: patient, old records, EMS Exam Limitations: no limitations Vital Signs & Intake/Output Vital Signs & Intake/Output Vital Signs Date Time Temp Pulse Resp B/P B/P Pulse O2 O2 Flow FiO2 Mean Ox Delivery Rate 03/02 1554 98.3 89 15 124/74 100 Room Air 03/02 1314 99 Room Air 03/02 1244 97.2 78 18 129/82 100 Allergies Coded Allergies: acetaminophen (Intermediate, UPSET STOMACH 12/07/16) PER PATIENT SHE IS ALLERGIC TO ACETAMINOPHEN ibuprofen (Intermediate, ULCERS 12/07/16) cyclobenzaprine (JITTERS 12/07/16) Reconcile Medications Alprazolam 2 MG TABLET 1 TAB PO TID PRN ANXIETY TWENTY....[id number] Clopidogrel Bisulfate (Clopidogrel) 75 MG TABLET 75 MG PO DAILY STROKE Prevention (Reported) Dexlansoprazole (Dexilant) 60 MG CAP.DR.BP 1 CAP PO DAILY HEARTBURN (Reported ) Gabapentin 300 MG CAPSULE 1 CAP PO TID NERVE PAIN (Reported) Levetiracetam (Keppra) 750 MG TABLET 1 TAB PO BID SEIZURE Morphine Sulfate (Morphine Sulfate ER) 15 MG TABLET.ER 15 MG PO DAILY PAIN ( Reported) Morphine Sulfate 15 MG TABLET 1 TAB PO TID PAIN (Reported) Naloxone HCl (Narcan) 4 MG/ACTUATION SPRAY 4 MG DEJA AD PRN OPIOID INDUCED RESP DEPRESSION (Reported) Triage Note: PT BIBA FROM HOME WITH C/C OF PAIN THAT STARTED X30 MINUTES AGO THAT ORIGINATED IN HER VAGINA AND RADIATES UP TO THE MIDDLE OF HER ABDOMEN. STATES SHE WAS +N/V EARLIER, DENIES AT PRESENT TIME. PT STATES PAIN IS 10/10. Triage Nurses Notes Reviewed? yes ? N Is pt currently ? No HPI: Ms. Lambert 46 YO F PMH of seizures presented to ED with CC of abdominal and back pain since this morniong along with H/O nausea. According to patient pain was sudden in onset, 10/10, non radiating, dull, aggravated by movement and nothing relieves it. It's all over the abdomen. Patient also reports the chronic lower back pain taht's dull, 10/10, non radiating, aggravated by movement and nothing relieves it. Patient reports that she can pass flatus, stool and able to pee. Last time she went to bath room this morning and she was able to pee and pass stool normally. She denied any chest pain, palpitation, chills, fever, dysnea, cough, frequency of urination or dysuria. (KRISTINE GANN MD) Past History Travel History Traveled to [place] past 21 day No Medical History Any Pertinent Medical History? 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 No (KRISTINE GANN MD) Psychosocial History ETOH Use: occasional use Illicit Drug Use: denies illicit drug use (NATALY LOPEZ,RUSLAN Mcguire) Review of Systems Review of Systems Constitutional: Reports: no symptoms. EENTM: Reports: no symptoms. Respiratory: Reports: no symptoms. Cardiovascular: Reports: no symptoms. GI: Reports: abdominal pain, nausea. Genitourinary: Reports: no symptoms. Musculoskeletal: Reports: back pain. Skin: Reports: no symptoms. (KRISTINE GANN MD) Review of Systems Neurological/Psychological: Reports: no symptoms. Hematologic/Endocrine: Reports: no symptoms. Immunologic/Allergic: Reports: no symptoms. All Other Systems: Reviewed and Negative (NATALY LOPEZ,RUSLAN Mcguire) Physical Exam Physical Exam General Appearance: alert, awake, anxious, moderate distress Head: atraumatic Eyes: Bilateral: normal appearance, PERRL, EOMI, normal inspection. Ears, Nose, Throat, Mouth: hearing grossly normal Neck: normal inspection Respiratory: normal breath sounds Cardiovascular: regular rate/rhythm, normal peripheral pulses Gastrointestinal: normal bowel sounds, tenderness Neurologic/Psych: awake, alert, oriented x 3 Skin: intact, normal color, warm/dry Core Measures ACS in differential dx? No Severe Sepsis Present: No Septic Shock Present: No (KRISTINE GANN MD) Progress Differential Diagnosis: appendicitis, bowel obstruction, diverticulitis, ischemic bowel, pancreatitis, UTI/pyelo Plan of Care: Orders Procedure Date/time Status Straight Cath 03/02 125 Active URINE DRUGS OF ABUSE 03/02 125 Complete URINALYSIS 03/02 125 Complete LIPASE 03/02 125 Complete HUMAN BETA HCG SCREEN 03/02 125 Complete ETHANOL 03/02 125 Complete COMPREHENSIVE METABOLIC PANEL 03/02 125 Complete CBC WITHOUT DIFFERENTIAL 03/02 1259 Complete AMYLASE 03/02 125 Complete Laboratory Tests 03/02/17 1310: Serum Alcohol < 10.0 03/02/17 1310: Anion Gap 8, Estimated GFR > 60, BUN/Creatinine Ratio 17.1, Glucose 81, Calcium 9.1, Total Bilirubin 0.4, AST 14, ALT 23, Alkaline Phosphatase 81, Total Protein 6.6, Albumin 3.5, Globulin 3.1, Albumin/Globulin Ratio 1.1, Amylase 48, Lipase 26, Total Beta HCG NEGATIVE, CBC w Diff NO MAN DIFF REQ, RBC 4.16 L, MCV 77.3 L, MCH 25.1 L, RDW 18.6 H, MPV 8.5, Gran % 65.3, Lymphocytes % 24.6, Monocytes % 6.4, Eosinophils % 3.1, Basophils % 0.6, Absolute Granulocytes 5.9, Absolute Lymphocytes 2.2, Absolute Monocytes 0.6, Absolute Eosinophils 0.3, Absolute Basophils 0.1, PUBS MCHC 32.5 L, Urine Opiates Screen > 4000.00 H, Methadone Screen < 40, Barbiturate Screen < 60, Ur Phencyclidine Scrn < 6.00, Amphetamines Screen < 100, U Benzodiazepines Scrn > 800 H, Urine Cocaine Screen < 50, Urine Cannabis Screen 13.10, Urine Color YEL, Urine Clarity CLEAR, Urine pH 6.5, Ur Specific [place] 1.015, Urine Protein NEG, Urine Ketones NEG, Urine Nitrite NEG, Urine Bilirubin NEG, Urine Urobilinogen 1.0, Ur Leukocyte Esterase NEG, Ur Microscopic EXAM NOT REQUIRED, Urine Hemoglobin NEG, Urine Glucose NEG Initial ED EKG: none Comments: Patient was observed in ED and CT scan abdomen and pelvis was ordered that turned out to be normal. Patient was informed with the normal results her CT scan. I told her that we are going to send her home and if she feel that therw is wrong with her or she is not feeling well she can come to ED again but pt. want me to increase the number of tablets of morphine that she is taking at home. But i told her to contact to her pcp for that. (SANJUANITA LOPEZ,KRISTINE) Diagnostic Imaging: Viewed by Me: CT Scan. Discussed w/RAD: CT Scan. Radiology Impression: PATIENT: ANA CRISTINA LAMBERT PRESENT AGE: 46 PATIENT ACCOUNT NO: [id number] : 68 LOCATION: [facility] ORDERING PHYSICIAN: KRISTINE GANN MD SERVICE DATE: 03/02/17 EXAM TYPE: CAT - CT ABD & PELVIS W IV CONTRAST EXAMINATION: CT ABDOMEN AND PELVIS WITH CONTRAST CLINICAL INFORMATION: Diffuse abdominal pain COMPARISON: 10/10/2016 TECHNIQUE: Multidetector volumetric imaging was performed of the abdomen and pelvis before and after the IV administration of 95 mL of Optiray 320 intravenous contrast. Sagittal and coronal reformatted images were obtained on the technologist's workstation. DLP: 727 mGy-cm FINDINGS: LUNG BASES: The visualized lung bases are unremarkable. LIVER, GALLBLADDER, AND BILIARY TREE: The liver is normal in size, shape, and attenuation. No focal hepatic lesion or biliary ductal dilatation is present. The gallbladder is unremarkable with no evidence of radiopaque gallstones, gallbladder wall thickening, or obvious pericholecystic inflammatory changes. PANCREAS: Unremarkable. SPLEEN: Unremarkable. ADRENAL GLANDS: Unremarkable. KIDNEYS AND URETERS: The kidneys are normal in size, shape, and attenuation. No hydronephrosis, hydroureter, or calculi seen. No perinephric stranding. BLADDER: Unremarkable. GASTROINTESTINAL TRACT: Gastric bypass surgery. No focal inflammatory process or obstruction. Normal appendix. ABDOMINAL WALL: No significant hernia is appreciated. LYMPH NODES: Normal. VASCULAR: Unremarkable. PELVIC VISCERA: Unremarkable. OSSEOUS STRUCTURES: Unremarkable. IMPRESSION: No focal inflammatory process or obstruction. Normal appendix. DICTATED BY: ILENE ESCOBAR MD DATE/TIME DICTATED:03/02/171447 PLANNING DIVISION SUPERINTENDENT:MISSY DATE/TIME TRANSCRIBED:1447 CONFIDENTIAL, DO NOT COPY WITHOUT APPROPRIATE AUTHORIZATION. < Electronically signed in Other Vendor System> SIGNED BY: ILENE ESCOBAR MD 03/02/17 8616 (RUSLAN INGRAM MD) Departure Departure Disposition: HOME OR SELF CARE Condition: Stable Clinical Impression Primary Impression: Unspecified abdominal pain Referrals: MACRINA LOPEZ,ELLIOT Mcguire (PCP/Family) Additional Instructions: Follow up with your pcp for further instructions and concerns. Departure Forms: Customer Survey General Discharge Information (SANJUANITA LOPEZ,KRISTINE) Resident Co-Sign Statement Statement: ED Attending supervision documentation- [X] I saw and evaluated the patient. I have also reviewed all the pertinent lab results and diagnostic results. I agree with the findings and the plan of care as documented in the Resident's documentation. [X]X I have reviewed the ED Record and agree with the Resident's documentation. [] Additions or exceptions (if any) to the Resident's note and plan are summarized below: I have personally seen and examined this patient. I have read the above note and agree with what has been written. Pt was in her usual state of health when she had a sudden onset of diffuse abd pain. Pain is 10 out of 10 and is unrelieved with her home pain meds. her labs are negative and ct is unremarkable.] (NATALY LOPEZ,RUSLAN Mcguire)
--- NOTE | 2017-03-02 14:54 | CT SCAN REPORT ---
EXAMINATION: CT ABDOMEN AND PELVIS WITH CONTRAST CLINICAL INFORMATION: Diffuse abdominal pain COMPARISON: 10/10/2016 TECHNIQUE: Multidetector volumetric imaging was performed of the abdomen and pelvis before and after the IV administration of 95 mL of Optiray 320 intravenous contrast. Sagittal and coronal reformatted images were obtained on the technologist's workstation. DLP: 727 mGy-cm FINDINGS: LUNG BASES: The visualized lung bases are unremarkable. LIVER, GALLBLADDER, AND BILIARY TREE: The liver is normal in size, shape, and attenuation. No focal hepatic lesion or biliary ductal dilatation is present. The gallbladder is unremarkable with no evidence of radiopaque gallstones, gallbladder wall thickening, or obvious pericholecystic inflammatory changes. PANCREAS: Unremarkable. SPLEEN: Unremarkable. ADRENAL GLANDS: Unremarkable. KIDNEYS AND URETERS: The kidneys are normal in size, shape, and attenuation. No hydronephrosis, hydroureter, or calculi seen. No perinephric stranding. BLADDER: Unremarkable. GASTROINTESTINAL TRACT: Gastric bypass surgery. No focal inflammatory process or obstruction. Normal appendix. ABDOMINAL WALL: No significant hernia is appreciated. LYMPH NODES: Normal. VASCULAR: Unremarkable. PELVIC VISCERA: Unremarkable. OSSEOUS STRUCTURES: Unremarkable. IMPRESSION: No focal inflammatory process or obstruction. Normal appendix.
[2017-03-02 15:54] VITALS: BP 124/74
== END 2017-03-02 15:59 ==
LOC: ERH 12:38
PROVIDERS: Emergency Medicine
DX: R10.84 Generalized abdominal pain (principal)
CPT/HCPCS: 74177; 80307; 81003; G0480

== ENCOUNTER 2017-03-06 17:16 | Emergency (ER) | payer OTHER, MEDICARE ==
[~2017-03-06] VITALS: Ht 167.6 cm; Wt 99.8 kg
[2017-03-06 18:52] VITALS: BP 145/74
--- NOTE | 2017-03-06 20:07 | ED GI/GU/ABDOMINAL COMPLAINT ---
History of Present Illness General Chief Complaint: General Adult Stated Complaint: ?UNKNOWN Vital Signs & Intake/Output Vital Signs & Intake/Output Vital Signs Date Time Temp Pulse Resp B/P B/P Pulse O2 O2 Flow FiO2 Mean Ox Delivery Rate 03/06 1852 98.3 89 15 145/74 100 Room Air Allergies Coded Allergies: acetaminophen (Intermediate, UPSET STOMACH 12/07/16) PER PATIENT SHE IS ALLERGIC TO ACETAMINOPHEN ibuprofen (Intermediate, ULCERS 12/07/16) cyclobenzaprine (JITTERS 12/07/16) Reconcile Medications Alprazolam 2 MG TABLET 1 TAB PO TID PRN ANXIETY TWENTY....[id number] Clopidogrel Bisulfate (Clopidogrel) 75 MG TABLET 75 MG PO DAILY STROKE Prevention (Reported) Dexlansoprazole (Dexilant) 60 MG CAP.DRYiselBP 1 CAP PO DAILY HEARTBURN (Reported ) Gabapentin 300 MG CAPSULE 1 CAP PO TID NERVE PAIN (Reported) Levetiracetam (Keppra) 750 MG TABLET 1 TAB PO BID SEIZURE Morphine Sulfate (Morphine Sulfate ER) 15 MG TABLET.ER 15 MG PO DAILY PAIN ( Reported) Morphine Sulfate 15 MG TABLET 1 TAB PO TID PAIN (Reported) Naloxone HCl (Narcan) 4 MG/ACTUATION SPRAY 4 MG DEJA AD PRN OPIOID INDUCED RESP DEPRESSION (Reported) Triage Note: PT TO ED FOR VAGINAL PAIN AND DRYNESS AFTER INTERCOURSE X WEEKS. SEEN HERE RECENTLY FOR SAME. HPI: Ms. Barnes 46 YO F with PMH of CVA, spinal trauma after fall, gastric bypass surgery, and she is current smoker came to ED today with CC of pruritis of vulva and dyspareunia. She told that she has this pruritis of vulva for long time and yesterday she felt dyspareunia after sexual intercourse. She also noticed blood after sexual intercourse. Patient also reports unexplained ten pound weight loss in a week. She told that she had family history of cancer but she didn't know what kind. She reports that she is scared that she has genital cancer. She denied any discharge from the genitalia, fever, pain in lower belly, loss of appetite, dysuria and constipation. I talked to the patient and she agreed to bimanual and speculum examination of genitalia. On examination there were depigmented spots on left labia majora, and dry, pale vaginal mucosa. I couldn't see any mass, discharge or blood in vagina. I spoke to the patient and she agreed to follow her bernadette/optical engineering manager. I plan to refer her to obg/optical engineering manager. (KRISTINE GANN MD) General Source: patient Exam Limitations: poor historian Triage Nurses Notes Reviewed? yes ? N Is pt currently ? 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 none Family History Hx Contributory? No (SERG GOLDSMITH DO) Review of Systems Review of Systems Constitutional: Reports: unexplained weight loss. EENTM: Reports: no symptoms. Respiratory: Reports: no symptoms. Cardiovascular: Reports: no symptoms. GI: Reports: no symptoms. Genitourinary: Denies: discharge, dysuria, frequency. Musculoskeletal: Reports: no symptoms. Skin: Reports: no symptoms. Hematologic/Endocrine: Reports: no symptoms. (SANJUANITA LOPEZCARMONA) Physical Exam Physical Exam General Appearance: no apparent distress, alert, awake Head: atraumatic Eyes: Bilateral: normal appearance, PERRL, EOMI, normal inspection. Ears, Nose, Throat, Mouth: hearing grossly normal Neck: normal inspection Respiratory: normal breath sounds, chest non-tender, no respiratory distress Cardiovascular: regular rate/rhythm, normal peripheral pulses Gastrointestinal: normal bowel sounds, soft Pelvic: normal speculum exam, normal bimanual exam Extremities: normal range of motion Neurologic/Psych: awake, alert, oriented x 3, normal gait Skin: intact, normal color, warm/dry (KRISTINE GANN MD) Core Measures ACS in differential dx? No Severe Sepsis Present: No Septic Shock Present: No (SERG GOLDSMITH DO) Progress Differential Diagnosis: Atrophic vaginitis, Trychomonas vaginalis, candidiasis, Bacterial vaginosis, Cervical polyp Plan of Care: I did the bimanual and speculum examination on the patient and i couldn't see any foul smelling discharge or blood from vagina or any mass protruding from vagina. I couldn't see the cervix on speculum examination. vaginal mucosa was pale and dry and on inspection labia majora was large and there were depigmented spots on left labia majora. I spoke to the patient about the examination and she agreed to follow her Obs/Manager Research for further examination and treatment paln if she wants to start estrogen cream for atrophic vaginitis and to examine the patient for endometrial pathology. Prior to her discharge the plan of care was discussed to the patient and I told her that she needs to follow her OBS/Manager Research and we will refer her. But she walked out of the ED. (KRISTINE GANN MD) Initial ED EKG: none (SERG GOLDSMITH DO) Departure Departure Condition: Stable Clinical Impression Primary Impression: Atrophic vaginitis Referrals: MACRINA LOPEZ,ELLIOT Mcguire (PCP/Family) Departure Forms: Customer Survey General Discharge Information (KRISTINE GANN MD) Departure Disposition: LEFT AGAINST MEDICAL ADVICE Comments I have seen and examined the patient. She was first seen for vaginitis and left prior to discharge instructions. She later came in for back pain after a fall and left before discharge instructions. (SERG GOLDSMITH DO)
== END 2017-03-06 19:55 ==
LOC: ERH 17:16
DX: N95.2 Postmenopausal atrophic vaginitis (principal)

== ENCOUNTER 2017-03-06 21:14 | Emergency (ER) | payer OTHER, MEDICARE ==
--- NOTE | 2017-03-06 21:24 | ED UPPER/LOWER EXTREMITY COMPL ---
History of Present Illness General Chief Complaint: Lower Extremity Injury Stated Complaint: ANKLE PAIN S/P FALL BIBA Source: patient Exam Limitations: no limitations Vital Signs & Intake/Output Vital Signs & Intake/Output Vital Signs Date Time Temp Pulse Resp B/P B/P Pulse O2 O2 Flow FiO2 Mean Ox Delivery Rate 03/06 2315 97.8 79 19 137/69 99 Room Air 03/06 2137 97.1 78 20 136/68 98 Room Air Allergies Coded Allergies: acetaminophen (Intermediate, UPSET STOMACH 12/07/16) PER PATIENT SHE IS ALLERGIC TO ACETAMINOPHEN ibuprofen (Intermediate, ULCERS 12/07/16) cyclobenzaprine (JITTERS 12/07/16) Reconcile Medications Alprazolam 2 MG TABLET 1 TAB PO TID PRN ANXIETY TWENTY....[id number] Clopidogrel Bisulfate (Clopidogrel) 75 MG TABLET 75 MG PO DAILY STROKE Prevention (Reported) Dexlansoprazole (Dexilant) 60 MG CAP.DR.BP 1 CAP PO DAILY HEARTBURN (Reported ) Gabapentin 300 MG CAPSULE 1 CAP PO TID NERVE PAIN (Reported) Levetiracetam (Keppra) 750 MG TABLET 1 TAB PO BID SEIZURE Morphine Sulfate (Morphine Sulfate ER) 15 MG TABLET.ER 15 MG PO DAILY PAIN ( Reported) Morphine Sulfate 15 MG TABLET 1 TAB PO TID PAIN (Reported) Naloxone HCl (Narcan) 4 MG/ACTUATION SPRAY 4 MG DEJA AD PRN OPIOID INDUCED RESP DEPRESSION (Reported) Triage Nurses Notes Reviewed? yes Onset: Abrupt Duration: constant Timing: single episode today Severity: severe Severity Numbers: 7 Method of Injury: direct blow, fall HPI: Patient is a 46-year-old female who presents emergency room in which she was walking on an uneven surface where she fell twisting her left ankle and striking the left side of her head to the ground. Patient denies any loss of consciousness. Patient also is complaining of left lateral back pain. Patient was brought in by ambulance. No medications given prior to arrival. Denies any shortness of breath abdominal pain (MELISSA SANDOVAL) Past History Medical History Any Pertinent Medical History? 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 No (MELISSA SANDOVAL) Review of Systems Review of Systems Constitutional: Reports: no symptoms. EENTM: Reports: no symptoms. Respiratory: Reports: no symptoms. Cardiovascular: Reports: no symptoms. Gastrointestinal/Abdominal: Reports: no symptoms. Genitourinary: Reports: no symptoms. Musculoskeletal: Reports: see HPI, back pain, joint pain, muscle pain. Skin: Reports: no symptoms. Neurological/Psychological: Reports: no symptoms. Hematologic/Endocrine: Reports: no symptoms. Immunological: Reports: no symptoms. All Other Systems: Reviewed and Negative (MELISSA SANDOVAL) Physical Exam Physical Exam General Appearance: no apparent distress, alert, comfortable Neurologic/Tendon: normal sensation, normal motor functions, normal tendon functions, responds to pain, no evidence tendon injury Comments: Well-developed well-nourished person in no acute distress HEENT: Normal EENT exam, extraocular motion intact, no nystagmus. Pupils equally round and reactive to light and accommodation. Nose is atraumatic. External auditory canal and Tympanic membranes clear. Pharynx normal. No swelling or edema. Neck: Supple, no lymphadenopathy, normal range of motion without pain or tenderness No central spinous tenderness Back: Left lateral muscular point tenderness normal inspection, no CVA tenderness. No central spinous tenderness Cardiovascular: Regular rate and rhythms no murmurs rubs or gallops, normal JVP Respiratory: Chest nontender. No respiratory distress.breath sounds clear to auscultation bilaterally Abdomen: Soft, nontender nondistended, no appreciable organomegaly. Normal bowel sounds. No ascites Extremity: No edema, no calf tenderness to palpation, normal and equal pulses. Left ankle normal inspection generalized point tenderness noted Left knee and left hip normal section nontender Neuro: Alert oriented x3, motor sensory normal, cranial nerves II through XII grossly intact. Skin: No appreciable rash on exposed skin, skin is warm and dry. Psych: Mood and affect is normal, memory and judgment is normal. (MELISSA SANDOVAL) Progress Differential Diagnosis: arterial insufficiency, compartment syndrome, contusion, dislocation, DVT, fracture, gout, septic arthritis, sprain, tendon injury Plan of Care: Orders Procedure Date/time Status Durable Medical Equipment 03/06 2247 Active Patient had unremarkable CT scan of head and cervical spine. No central spinous tenderness patient had NEXUS 0 X-rays were unremarkable for osseous injury. Topher wrap was placed to left ankle with Aircast stirrup pre-and post-neurovascular was intact Patient also was given a prescription of a cane for fall prevention. Crutches were instructed for weightbearing as tolerated (NICOLE HOLLOWAY,MELISSA) Diagnostic Imaging: Viewed by Me: Radiology Read, CT Scan. Radiology Impression: no fracture Comments: PATIENT: ANA CRISTINA LAMBERT PRESENT AGE: 46 PATIENT ACCOUNT NO: [id number] : 68 LOCATION: [facility] ORDERING PHYSICIAN: MELISSA HOLLOWAY SERVICE DATE: 03/06/17 EXAM TYPE: CAT - CT CERV SPINE WO IV CONTRAST; CT HEAD WO IV CONTRAST CT HEAD WITHOUT IV CONTRAST CT CERVICAL SPINE WITHOUT IV CONTRAST INDICATION: Status post fall. COMPARISON: 12/05/2016, head CT 01/04/2017, 01/05/2017.. TECHNIQUE: Multidetector CT acquisitions of the head, maxillofacial region, and cervical spine were obtained without IV contrast. Multiplanar reformats were acquired and utilized for image interpretation. FINDINGS: HEAD: There is no intracranial hemorrhage, hydrocephalus, extra-axial surface collection, midline shift, or other herniation pattern. An old left MCA territory infarct is again noted involving the left insula and portions of the frontal and parietal lobes and left basal ganglia with ex vacuo dilatation of the lateral ventricle and sulcal pattern. Frankel to white matter differentiation is otherwise diffusely maintained without evidence of an evolved acute territorial infarct. The basilar cisterns are preserved. No significant soft tissue abnormality. No acute osseous abnormality. The paranasal sinuses and the mastoid air cells are well-aerated. CERVICAL SPINE: There is anatomic alignment of the vertebral bodies and posterior elements. There is no acute fracture and there is no acute subluxation. The craniocervical and atlantoaxial articulations are normal. There is loss of disc and joint space height most notably C5/C6 and 6/7 levels with mild endplate and uncovertebral productive changes at C6/C7. These findings appear unchanged. There is no prevertebral soft tissue swelling. No significant soft tissue abnormality within the neck. The visualized lung apices are clear. IMPRESSION: 1. No acute intracranial abnormality. 2. No acute osseous abnormality within the cervical spine. DICTATED BY: NICKIE GRIJALVA MD DATE/TIME DICTATED:03/06/172224 GEOSCIENCE PROFESSOR:MISSY DATE/TIME TRANSCRIBED:03/06/172224 PATIENT: ANA CRISTINA LAMBERT PRESENT AGE: 46 PATIENT ACCOUNT NO: [id number] : 68 LOCATION: [facility] ORDERING PHYSICIAN: MELISSA HOLLOWAY SERVICE DATE: 03/06/17 EXAM TYPE: RAD - XRY-ANKLE 3 OR MORE VIEWS L EXAMINATION: XR ANKLE, LEFT CLINICAL INFORMATION: Fall with left ankle pain COMPARISON: None TECHNIQUE: AP, lateral, and mortise views of the left ankle. FINDINGS: No fracture or dislocation. The ankle mortise is congruent. The soft tissues are unremarkable. No ankle joint effusion. IMPRESSION: No fracture or malalignment. DICTATED BY: SIMA ABEL MD DATE/TIME DICTATED:03/06/172213 GEOSCIENCE PROFESSOR:MISSY DATE/TIME TRANSCRIBED:03/06/172213 (MELISSA SANDOVAL) Departure Departure Disposition: HOME OR SELF CARE Condition: Stable Clinical Impression Primary Impression: Left ankle sprain Secondary Impressions: Cervical strain, Fall, Minor head trauma Referrals: MACRINA LOPEZ,ELLIOT Mcguire (PCP/Family) Additional Instructions: As discussed continue home medications as directed. If symptoms worsen return to emergency room. If no better in one week follow-up with primary care doctor Begin using the Topher wrap and the ankle Aircast STIRRUP for support and stability. Begin icing the area directly 20 minutes every 2 hours Begin using the cane for fall prevention this prescription must be obtained had a dental assistant medical assistant store. Departure Forms: Customer Survey General Discharge Information (MELISSA SNADOVAL) PA/BANKING SPECIALIST Co-Sign Statement Statement: ED Attending supervision documentation- [] I saw and evaluated the patient. I have also reviewed all the pertinent lab results and diagnostic results. I agree with the findings and the plan of care as documented in the PA's/BANKING SPECIALIST's documentation. [x] I have reviewed the ED Record and agree with the PA's/BANKING SPECIALIST's documentation. [] Additions or exceptions (if any) to the PAs/BANKING SPECIALIST's note and plan are summarized below: [] (SERG GOLDSMITH DO)
--- NOTE | 2017-03-06 22:19 | RADIOLOGY REPORT ---
EXAMINATION: XR ANKLE, LEFT CLINICAL INFORMATION: Fall with left ankle pain COMPARISON: None TECHNIQUE: AP, lateral, and mortise views of the left ankle. FINDINGS: No fracture or dislocation. The ankle mortise is congruent. The soft tissues are unremarkable. No ankle joint effusion. IMPRESSION: No fracture or malalignment.
--- NOTE | 2017-03-06 22:37 | CT SCAN REPORT ---
CT HEAD WITHOUT IV CONTRAST CT CERVICAL SPINE WITHOUT IV CONTRAST INDICATION: Status post fall. COMPARISON: 12/05/2016, head CT 01/04/2017, 01/05/2017.. TECHNIQUE: Multidetector CT acquisitions of the head, maxillofacial region, and cervical spine were obtained without IV contrast. Multiplanar reformats were acquired and utilized for image interpretation. FINDINGS: HEAD: There is no intracranial hemorrhage, hydrocephalus, extra-axial surface collection, midline shift, or other herniation pattern. An old left MCA territory infarct is again noted involving the left insula and portions of the frontal and parietal lobes and left basal ganglia with ex vacuo dilatation of the lateral ventricle and sulcal pattern. Frankel to white matter differentiation is otherwise diffusely maintained without evidence of an evolved acute territorial infarct. The basilar cisterns are preserved. No significant soft tissue abnormality. No acute osseous abnormality. The paranasal sinuses and the mastoid air cells are well-aerated. CERVICAL SPINE: There is anatomic alignment of the vertebral bodies and posterior elements. There is no acute fracture and there is no acute subluxation. The craniocervical and atlantoaxial articulations are normal. There is loss of disc and joint space height most notably C5/C6 and 6/7 levels with mild endplate and uncovertebral productive changes at C6/C7. These findings appear unchanged. There is no prevertebral soft tissue swelling. No significant soft tissue abnormality within the neck. The visualized lung apices are clear. IMPRESSION: 1. No acute intracranial abnormality. 2. No acute osseous abnormality within the cervical spine.
[2017-03-06 23:15] VITALS: BP 137/69
== END 2017-03-06 22:53 ==
LOC: ERH 21:14
DX: S93.402A Sprain of unspecified ligament of left ankle, initial encounter (principal); S16.1XXA Strain of muscle, fascia and tendon at neck level, initial encounter; S09.90XA Unspecified injury of head, initial encounter; W19.XXXA Unspecified fall, initial encounter; Y92.9 Unspecified place or not applicable; Y93.01 Activity, walking, marching and hiking; Z86.73 Personal history of transient ischemic attack (TIA), and cerebral infarction without residual deficits
CPT/HCPCS: 73610-LT

== ENCOUNTER 2017-03-27 22:10 | Emergency (ER) | payer OTHER, MEDICARE ==
[~2017-03-27] VITALS: Ht 170.2 cm; Wt 99.8 kg
--- NOTE | 2017-03-27 22:27 | ED PSYCHIATRIC COMPLAINT ---
See Addendum History of Present Illness General Chief Complaint: ETOH/Drug Related Complaint Stated Complaint: BIBA FOR XANAX OVERDOSE PER EMS. ALSO ON PEER Source: patient, old records, EMS Exam Limitations: clinical condition Vital Signs & Intake/Output Vital Signs & Intake/Output Vital Signs Date Time Temp Pulse Resp B/P B/P Pulse O2 O2 Flow FiO2 Mean Ox Delivery Rate 03/28 2100 97.5 80 18 151/84 96 Room Air 03/28 1600 97.9 72 16 130/67 98 Room Air 03/28 1251 97.9 88 16 116/56 99 Room Air 03/28 0953 98.6 69 20 120/60 99 Room Air 03/28 0702 97.2 70 18 143/73 100 Room Air ED Intake and Output 03/29 0000 03/28 1200 Intake Total Output Total 2625 Balance -2625 Output, Urine 2625 SEE TRIAGE (ABDULAZIZ LOPEZ,DRISS) Allergies Coded Allergies: acetaminophen (Intermediate, UPSET STOMACH 12/07/16) PER PATIENT SHE IS ALLERGIC TO ACETAMINOPHEN ibuprofen (Intermediate, ULCERS 12/07/16) cyclobenzaprine (JITTERS 12/07/16) Reconcile Medications Alprazolam 2 MG TABLET 1 TAB PO TID PRN ANXIETY TWENTY....[id number] Clopidogrel Bisulfate (Clopidogrel) 75 MG TABLET 75 MG PO DAILY STROKE Prevention (Reported) Dexlansoprazole (Dexilant) 60 MG CAP.DR.BP 1 CAP PO DAILY HEARTBURN (Reported ) Gabapentin 300 MG CAPSULE 1 CAP PO TID NERVE PAIN (Reported) Levetiracetam (Keppra) 750 MG TABLET 1 TAB PO BID SEIZURE Morphine Sulfate 15 MG TABLET 1 TAB PO TID PAIN (Reported) Naloxone HCl (Narcan) 4 MG/ACTUATION SPRAY 4 MG DEJA AD PRN OPIOID INDUCED RESP DEPRESSION (Reported) Triage Note: 46 Y/O FEMALE MARIELENA FROM HOME FOR XANAX OVERDOSE. PER PARAMED SPOUSE STS WHEN HE GOT HOME PT WAS LETHARGIC AND WALKING ABOUT BUT ABOUT AN HOUR LATER HE NOTED PT SLUMPED ON FLOOR AND ALSO NOTED HER XANAX UNKNOWN DOSAGE EMPTY AND IT WAS RECENTLY FILLED ON 03/09/17. PT ARRIVES A/O X2 AND STILL LETHARGIC BUT ABLE TO ANSWER QUESTIONS AND STS SHE WAS LOOKING TO KILL SELF AND THAT SHE TOOK 60 PILLS OF 2MG XANAX. PT DENIES ANY OTHER COMPLAINTS AND MD CINTRON AT BEDSIDE TO EVAL PT. PT IS ON PAPER FOR +SI/-H1. Triage Nurses Notes Reviewed? yes Onset: Abrupt Duration: hour(s): (5) Timing: single episode today Severity: moderate, severe Associated Symptoms: anxiety, suicidal ideation HPI: This is a 46-year-old female with history of previous CVA on Plavix, nonepileptic seizures, history of anxiety prescribed Xanax presents via EMS from home for unresponsive episode per her . Patient was found with empty bottle of Xanax dispensed on March 19. Prescription was for Xanax 2 mg 3 times a day. Patient reports taking 60 pills at 5:00 this afternoon in attempt to kill herself. Denies any other ingestion. Denies any alcohol. No history of previous suicide attempts. Patient found to be lethargic but still responding to questions. Patient asking for pain medications for her low back pain. (ABDULAZIZ LOPEZ,DRISS) Past History Travel History Traveled to [place] past 21 day No Medical History Any Pertinent Medical History? 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 No (ABDULAZIZ LOPEZ,DRISS) Review of Systems Review of Systems Constitutional: Reports: see HPI (LIMITED PER PT CONDITION). Musculoskeletal: Reports: back pain. Neurological/Psychological: Reports: anxiety. (ABDULAZIZ LOPEZ,DRISS) Physical Exam Physical Exam General Appearance: well developed/nourished, lethargic, mild distress, moderate distress, obese Head: normal appearance Eyes: Bilateral: PERRL, other (PUPIL 4 MM B/L). Neck: normal inspection, supple, full range of motion Respiratory: normal breath sounds, chest non-tender, no respiratory distress Cardiovascular: regular rate/rhythm Gastrointestinal: soft, non-tender Extremities: normal range of motion Neurological/Psychiatric: no motor/sensory deficits, LETHARGIC, ORIENTED 2 Appearance/Memory/Insight: disheveled, impaired insight Behavoir/Eye Contact/Speech: cooperative, decreased rate of speech Thoughts/Hallucinations: no apparent hallucination Skin: intact, normal color, warm/dry SAD PERSONS Done? unobtained due to conditi (DRISS CINTRON MD) Progress Differential Diagnosis: SUICIDE ATTEMPT, DEPRESSION, xANAX OVERDOSE Plan of Care: Orders Procedure Date/time Status Continuous Observation Monitor 03/28 0749 Active Restraint- Discontinue 03/28 0420 Active Current Medications Sig/Isabel Start time Last Medication Dose Stop Time Status Admin Gabapentin 300 MG TID 03/28 2200 UNVr 03/28 (Neurontin) 2213 Levetiracetam 750 MG BID 03/28 2200 UNVr 03/28 (Keppra) 221 Morphine Sulfate 15 MG TID 03/28 2200 UNVr 03/28 (MSIR) 221 Trimethoprim/ 1 TAB BID 03/28 2200 UNVr 03/28 Sulfamethoxazole 2213 (Bactrim DS) Clopidogrel Bisulfate 75 MG DAILY 03/28 1904 UNVr 03/28 (Plavix) 193 Initial ED EKG: NSR, LVH, T WAVE INVERSION III, FLAT ST AVF Prior EKG: unchanged Hand-Off Endorsed To: ULYSSES RICHMOND MD Endorsed Time: 2299 Pending: consult (CRISIS), labs (DRISS CINTRON MD) Hand-Off Endorsed To: RUSLAN INGRAM MD Endorsed Time: 699 Pending: consult (ULYSSES RICHMOND MD) Hand-Off Endorsed To: LIYAH JACOBSON MD Endorsed Time: 1899 Pending: consult (BED SEARCH) Comments: PT HAS BEEN SEEN AND 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 A BED SEARCH IS UNDERWAY. (RUSLAN INGRAM MD) Hand-Off Endorsed To: DRISS CINTRON MD Endorsed Time: 699 Pending: other (bed search) (LIYAH JACOBSON MD) Departure Departure Disposition: STILL A PATIENT Departure Forms: Customer Survey General Discharge Information (DRISS CINTRON MD) Departure Condition: Stable Clinical Impression Primary Impression: Suicide attempt Secondary Impressions: Benzodiazepine overdose, UTI (urinary tract infection) Referrals: ELLIOT SCHRADER MD (PCP/Family) (RUSLAN INGRAM MD) Endorsed To: RUSLAN INGRAM MD Endorsed Time: 0700 Pending: consult (YI LOPEZ,ULYSSES Myles) Hand-Off Endorsed To: LIYAH JACOBSON MD Endorsed Time: 190 Pending: consult (BED SEARCH) Comments: PT HAS BEEN SEEN AND 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 A BED SEARCH IS UNDERWAY. (RUSLAN INGRAM MD) Departure Departure Disposition: STILL A PATIENT Departure Forms: Customer Survey General Discharge Information (ABDULAZIZ LOPEZ,DRISS) Departure Condition: Stable Clinical Impression Primary Impression: Suicide attempt Secondary Impressions: Benzodiazepine overdose, UTI (urinary tract infection) Referrals: ELLIOT SCHRADER MD (PCP/Family) (RUSLAN INGRAM MD)
[2017-03-27 22:38] LABS: ABSOLUTE BASOPHIL COUNT 0 /CUMM (0.0-0.2); ABSOLUTE EOSINOPHIL COUNT 0.3 /CUMM (0.0-0.7); ABSOLUTE GRANULOCYTE CT 4.2 /CUMM (1.4-6.5); ABSOLUTE LYMPH COUNT 2.5 /CUMM (1.2-3.4); ABSOLUTE MONOCYTE COUNT 0.4 /CUMM (0.10-0.60); BASOPHIL % 0.7 % (0.0-2.0); EOSINOPHIL % 4.4 % (0-5); GRANULOCYTE % 55.8 % (42.2-75.2); HEMATOCRIT 31.9 % (37-47); MEAN CORPUSCULAR HGB CONC 32.4 G/DL (33.0-37.0); MEAN CORPUSCULAR VOLUME 77.3 FL (81.0-99.0); MEAN PLATELET VOLUME 8.8 FL (7.4-10.4); PLATELET COUNT 210 /CUMM (130-400); RBC DISTRIBUTION WIDTH 19.5 % (11.5-14.5); RED BLOOD CELL CT 4.13 /CUMM (4.20-5.40); WHITE BLOOD CELL COUNT 7.6 /CUMM (4.8-10.8)
--- NOTE | 2017-03-28 17:50 | ED PSYCH CRISIS CONSULTATION ---
See Addendum Crisis Consult Basic Assessment Date of Consult: 03/28/17 Responsible Person/Accompanied By: MARIELENA on a PEER Insurance Authorization: Insurance #1: Insurance name: MEDICARE A Phone number: Policy number: [id number] Group number: Authorization number: ED Provider: Patient's ED Provider: DRISS CINTRON MD Primary Care Physician: Patient's PCP: ELLIOT SCHRADER MD PCP's Current Psychiatrist: None Chief Complaint: ETOH/Drug Related Complaint Patient's Quote: "I'm mad, I'm sorry, I'm , he's my fault." Present Illness: The patient is a 46 year old, female presenting to the ED on a PEER, after taking an overdose of Xanax and making suicidal statements. The patient was lying in bed, disheveled with flat affect and had difficulty word finding and communicating her thoughts. The patient states that she had a stroke last December and it has made communicating difficult for her. She acknowledges that she took an overdose of her Xanax, however is not able to articulate why she did it. She denies having any suicidal thoughts and states that she has never attempted suicide in the past. She denies any current or history of AH , VH , HI. She denies any current or history of drug or alcohol abuse. She reports that she has a distant history of mental health issues, however does not articulate what they were. She denies any current treatment, however states that she takes Xanax, because " she does not like a lot of people." She is not able to state who prescribes her medications and why she is on Social Security Disability. She states that she lives with her boyfriend, Pepe Blackmon, and that they have a good relationship. She states that she does have two children, who are 18 & 25 years old. She states her only stressor is "loud noises," and denies any symptoms of depression. She would like to be discharged home and does not believe that she needs to be here. BETTE left a message for her boyfriend, Pepe Blackmon ([phone]), and will await a call back. BETTE did speak with her sister, Julienne Wren ([phone]), who stated the family is aware that she is in the ED. Julienne states that the patient has a long history of Bipolar, however has not been willing to have any current treatment. Julienne is aware that the patient took an overdose of Xanax, however is not clear if it was a suicide attempt. Julienne notes that the patient generally abuses her medication and she has talked with her about it. Julienne is not aware of any previous suicide attempts. Julienne believes that the patient has been under stress, secondary to relationship issues with her children and believes that because of that stress, she probably took the overdose. Julienne is aware that the patient will be staying overnight and is not clear what would be helpful at this time. Patient's Address: [address] [place] [address] Other Phone Number: Who Do You Live With? Significant Other Family/Informants Interviewed: BETTE left a message for her boyfriend, Pepe Blackmon ([phone]) and spoke with her sister, Julienne Wren ([phone]). Allergies - Coded Allergies: acetaminophen (Intermediate, UPSET STOMACH 12/07/16) PER PATIENT SHE IS ALLERGIC TO ACETAMINOPHEN ibuprofen (Intermediate, ULCERS 12/07/16) cyclobenzaprine (JITTERS 12/07/16) Current Medications - Scheduled Medications Clopidogrel Bisulfate (Clopidogrel) 75 MG TABLET 75 MG PO DAILY STROKE Prevention 30 Days (Reported) Entered as Reported by MELISSA HANNAH on 03/01/16 1207 Dexlansoprazole (Dexilant) 60 MG CAP.BP 1 CAP PO DAILY HEARTBURN (Reported ) Entered as Reported by LIYA LOPEZ, [facility] on 07/14/16 2039 Gabapentin 300 MG CAPSULE 1 CAP PO TID NERVE PAIN #90 (Reported) Entered as Reported by KADY VILLANUEVA on 01/03/17 1626 Levetiracetam (Keppra) 750 MG TABLET 1 TAB PO BID SEIZURE 60 Days Prescribed by JODI COTTO on 07/18/16 Morphine Sulfate 15 MG TABLET 1 TAB PO TID PAIN 30 Days (Reported) Entered as Reported by JODI COTTO on 07/15/16 1632 Scheduled PRN Medications Alprazolam 2 MG TABLET 1 TAB PO TID PRN ANXIETY #20 TAB Prescribed by YI LOPEZ,[facility] on 08/12/16 Naloxone HCl (Narcan) 4 MG/ACTUATION SPRAY 4 MG DEJA AD PRN OPIOID INDUCED RESP DEPRESSION #2 (Reported) Entered as Reported by KADY VILLANUEVA on 01/03/17 1626 Laboratory Results: Laboratory Tests 03/27/172236: Urine Opiates Screen > 4000.00 H, Methadone Screen < 40, Barbiturate Screen < 60, Ur Phencyclidine Scrn < 6.00, Amphetamines Screen < 100, U Benzodiazepines Scrn > 800 H, Urine Cocaine Screen < 50, Urine Cannabis Screen 11.10, Urinalysis LIGHT H, Urine Color YEL, Urine Clarity HAZY H, Urine pH 6.0, Ur Specific [place] 1.015, Urine Protein NEG, Urine Ketones TRACE H, Urine Nitrite POS H, Urine Bilirubin NEG, Urine Urobilinogen 1.0, Ur Leukocyte Esterase TRACE H, Ur Microscopic SEDIMENT EXAMINED, Urine RBC RARE, Urine WBC 15-25 H, Ur Epithelial Cells MOD H, Urine Bacteria MANY H, Urine Mucus MANY H, Urine Hemoglobin NEG, Urine Glucose NEG 03/27/172227: Anion Gap 8, Estimated GFR > 60, BUN/Creatinine Ratio 17.5, Glucose 94, Calcium 9.4, Total Bilirubin 0.5, AST 17, ALT 20, Alkaline Phosphatase 72, Total Protein 6.9, Albumin 3.8, Globulin 3.1, Albumin/Globulin Ratio 1.2, Total Beta HCG NEGATIVE, CBC w Diff NO MAN DIFF REQ, RBC 4.13 L, MCV 77.3 L, MCH 25.0 L, RDW 19.5 H, MPV 8.8, Gran % 55.8, Lymphocytes % 33.3, Monocytes % 5.8, Eosinophils % 4.4, Basophils % 0.7, Absolute Granulocytes 4.2, Absolute Lymphocytes 2.5, Absolute Monocytes 0.4, Absolute Eosinophils 0.3, Absolute Basophils 0, PUBS MCHC 32.4 L, Salicylates < 1.0, Acetaminophen < 10.0 L, Serum Alcohol < 10.0 Microbiology 03/27 2237 URINE ROUT: Urine Culture - RES GRAM NEGATIVE RODS (KATIE WATT,MEL) Past History Past Medical History Neurological: seizure (ON KEPPRA ATIVAN but neg EEG), CVA X 2 RESIDUAL WEAKNESS R SIDE EENT: NONE Cardiovascular: NONE Respiratory: NONE Gastrointestinal: GASTRIC BYPASS STOMACH ULCERS Hepatic: NONE Renal: NONE Musculoskeletal: FREQ FALLS "CRUSHED SPINE" CHRONIC BACK/NECK PAIN Psychiatric: anxiety Endocrine: NONE Blood Disorders: NONE Cancer(s): NONE 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 Physical Limitations (Interventions): The patient has a history of having a stroke, which left her with some deficiets. Psychiatric Treatment History Psych Treatment Psychiatric Treatment Yes Inpatient Treatment No Outpatient Treatment Yes Location of Treatment [facility] Reason for Treatment The patient does not recall, however her sister states that she has Bipolar Disorder. Dates of Treatment 2013 Response to Treatment Unclear Diagnosis by History: Anxiety, depression Substance Use/Abuse History Drug Use/Abuse Substances Used/Abused No (Pt. denies) First Use N/A Last Used N/A How much used/taken N/A How often N/A For how long N/A Route of use N/A Substance Abuse Treatment Substance Abuse Treatment Past Substance Abuse TX No (Pt. denies) Inpatient Treatment No Outpatient Treatment No Location of Treatment N/A Reason for Treatment N/A Dates of Treatment N/A Response to Treatment N/A Comments: The patient denies any current or history of substance abuse issues, however per her records she was attending treatment at [facility]. (KATIE WATT,MEL) Current Mental Status Mental Status Orientation: Person, Place, Situation Affect: Flat Speech: Clanging (Difficulty with speech-stroke), Mumbled (Difficulty ) Neuro-vegetative: Pt. denies all symptoms Appearance Appearance- Dress/Hygiene: The patient was lying in the bed, disheveled and was having difficulty speaking. She notes having a stroke and had difficulty word finding. Behaviors Thought Process: The patients thought process was difficult to follow, as she was having difficulty expressing her thoughts. Thought Content: WNL Memory: Impaired (Poor historian) Insight: Poor SI/HI Risk Assessment Past Suicidal Ideation/Attempts No (Pt. denies) Current Suicidal Ideation/Att No (Pt. denies, but +SI per PEER) Past Homicidal Ideation/Att: No (Pt. denies) Current Homicidal Ideation/Attempts No (Pt. denies) Degree of Intent: None, The patient denies any current or history of SI, however per the PEER she took the overdose of Xanax and "stated she wanted to kill herself with pills." Danger To: Self Risk Factors: high anxiety/distress, Per records there is a history of substance abuse treatment at [facility], however the patient does not recall. She reports having had a stroke and does have some deficeits from that stroke. Lethality Ratin PTSD Checklist PTSD Done? pt unable to participate ED Management Sitter: Yes Restraints: No (MEL WILSON LCSW) DSM5/PS Stressors/Medical Prob Diagnosis' (DSM 5, Stressors, Medical): F32.9 Unspecified Depressive Disorder F41.9 Unspecified Anxiety Disorder Medical: She reports having had a stroke, per sister she does have a seizure disorder, Per Dr. Lazcano, she has an acute UTI. Current GAF: 28 Comments: N/A (MEL WILSON LCSW) Departure Disposition Psych Medical Clearance Date: 03/28/17 Medically Cleared at: 1600 Time Started: 1630 Time Ended: 1730 Psychiatrist Consulted: Deborah LOPEZ,Edward Date Disposition Established: 03/28/17 Time Disposition Established: 1744 Plan for Disposition - Modality: Bed Search Contact: N/A Telephone: N/A Rationale for Disposition: The patient presents to the ED on a PEER, after taking an overdose of Xanax and making suicidal statments to the campus police officer. The patient is not able to recall why she took the overdose of Xanax. She denies any current mental health issues, SI , HI , AH, VH. Case discussed with Dr. Cabrera and he finds the patient to be an acute risk to self and in need of an inpatient admission at this time. There are no beds [facility] and therefore a bed search will be started. Additional Instructions: N/A Referrals MACRINA LOPEZ,ELLIOT Mcguire (PCP/Family) (MEL WILSON LCSW) Addendum Addendum Crisis [id number] pt this morning and she presents with a flat affect. she denies active SI, but has not insight into the severity of her overdoes. it was recommended by the psychiatrist that pt is in need of inpt psych tx. There are no beds available on [facility] so a bed search is being done. (ABDULAZIZ WATT,HENRY)
[2017-03-29 16:02] VITALS: BP 138/78
== END 2017-03-29 16:00 | disposition still patient (30) ==
LOC: ERH 22:10
PROVIDERS: Emergency Medicine
DX: T42.4X2A Poisoning by benzodiazepines, intentional self-harm, initial encounter (principal); N39.0 Urinary tract infection, site not specified
CPT/HCPCS: 80307; 81001; 87086; 93005; 93010; 96372; G0480; J1200; J1630

== ENCOUNTER 2017-09-03 16:56 | Emergency (ER) | payer OTHER, MEDICARE ==
[~2017-09-03] VITALS: Ht 175.3 cm; Wt 104.3 kg
[~2017-09-03 16:56] MED LIST changes: +CYCLOBENZAPRINE10 M1 PO; +XARELTO15 M1 PO; +ZOFRAN ODT4 M1 SL
--- NOTE | 2017-09-03 17:54 | ED PSYCHIATRIC COMPLAINT ---
See Addendum History of Present Illness General Chief Complaint: ETOH/Drug Related Complaint Stated Complaint: BIBA MORPHINE WITHDRAWL Source: patient, EMS Exam Limitations: intoxication Vital Signs & Intake/Output Vital Signs & Intake/Output Vital Signs Date Time Temp Pulse Resp B/P B/P Pulse O2 O2 Flow FiO2 Mean Ox Delivery Rate 09/04 1956 97.2 80 16 112/66 99 Room Air 09/04 1808 98.0 83 16 116/63 99 Room Air Allergies Coded Allergies: acetaminophen (Intermediate, UPSET STOMACH 08/12/17) PER PATIENT SHE IS ALLERGIC TO ACETAMINOPHEN ibuprofen (Intermediate, ULCERS 08/12/17) cyclobenzaprine (JITTERS 08/12/17) Reconcile Medications Alprazolam 1 MG TABLET 1 TAB PO BID ANXIETY Cyclobenzaprine HCl 10 MG TABLET 1 TAB PO TID PRN muscle spasm Dexlansoprazole (Dexilant) 60 MG CAP.BP 1 CAP PO DAILY HEARTBURN (Reported ) Gabapentin 300 MG CAPSULE 1 CAP PO TID NERVE PAIN (Reported) Levetiracetam (Keppra) 750 MG TABLET 1 TAB PO BID SEIZURE Morphine Sulfate 15 MG TABLET 1 TAB PO TID PAIN (Reported) Morphine Sulfate (Morphine Sulfate ER) 15 MG TABLET.ER 1 TAB PO BID PAIN ( Reported) Naloxone HCl (Narcan) 4 MG/ACTUATION SPRAY 4 MG DEJA AD PRN OPIOID INDUCED RESP DEPRESSION (Reported) Ondansetron (Zofran Odt) 4 MG TAB.RAPDIS 1 TAB SL TID PRN nausea Rivaroxaban (Xarelto) 15 MG TABLET 15 MG PO BID DVT . Triage Note: PT BIBA FROM HOME FOR MORPHINE WITHDRAWEL. PER EMS PT THINKS SHE IS WITHDRAWING FROM PAIN PILLS. PT VERY HARD TO UNDERSTAND IN TRIAGE RUNNING WORDS TOGETHER AND NOT COMPLETING FULL SENTENCES. PT ROCKING BACK AND FORTH IN CHAIR HAVING A HARD TIME STAYING AWAKE. PT NOW STATES SHE WANTS TO KILL HERSELF. Triage Nurses Notes Reviewed? yes Onset: Gradual Duration: day(s): Timing: recent history Severity: moderate HPI: 46YO female with hx of seizures presents to ED complaining of opiate withdrawal and pain. Patient states that her doctor recently "cut off" her morphine prescription last week. Patient reports pain in abdominal area, headache, back pain. Patient states that yesterday she took one of her friend's Suboxone pills. Patient has limited due to patient's current intoxication. Patient denies drug use today. Patient reports wanting to kill herself, does not states she has a plan. Patient states that these feelings are related to her current opiate withdrawal. (Su Garza) Past History Travel History Traveled to [place] past 21 day No Medical History Any Pertinent Medical History? 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 No (Su Garza) Review of Systems Review of Systems Constitutional: Reports: see HPI. EENTM: Reports: no symptoms. Respiratory: Reports: no symptoms. Cardiovascular: Reports: no symptoms. GI: Reports: see HPI. Genitourinary: Reports: no symptoms. Musculoskeletal: Reports: no symptoms. Skin: Reports: no symptoms. Neurological/Psychological: Reports: see HPI. Hematologic/Endocrine: Reports: no symptoms. Immunologic/Allergic: Reports: no symptoms. All Other Systems: Reviewed and Negative (Su Garza) Physical Exam Physical Exam General Appearance: well developed/nourished, no apparent distress, alert, awake Head: atraumatic, normal appearance Eyes: Bilateral: normal appearance, PERRL, EOMI. Ears, Nose, Throat: hearing grossly normal Neck: normal inspection, supple, full range of motion Respiratory: normal breath sounds, no respiratory distress, lungs clear Cardiovascular: regular rate/rhythm Gastrointestinal: soft, non-tender Extremities: normal range of motion Neurological/Psychiatric: awake, intoxicated? Appearance/Memory/Insight: denies illness, disheveled Behavoir/Eye Contact/Speech: avoids eye contact, decreased rate of speech Thoughts/Hallucinations: no apparent hallucination Skin: intact, normal color, warm/dry SAD PERSONS Done? unobtained due to conditi (Mónica HOLLOWAY,Su George) Progress Differential Diagnosis: dementia, drug intoxication, drug overdose, drug withdrawal, electrolyte abnormality, encephalitis, hypoglycemia Hand-Off Endorsed To: Alejandra LOPEZ,Chau Myles Endorsed Time: 99 Pending: consult, labs (Mónica HOLLOWAY,Su George) Plan of Care: Orders Procedure Date/time Status Regular Diet 09/04 B Active Continuous Observation Monitor 09/04 05 Active Restraint- Discontinue 09/04 29 Active Restraint- Behavioral (Order) 09/03 2012 Active Laboratory Tests 09/04/17 0307: Urine Opiates Screen < 100.00, Methadone Screen < 40, Barbiturate Screen < 60, Ur Phencyclidine Scrn < 6.00, Amphetamines Screen 149, U Benzodiazepines Scrn > 800 H, Urine Cocaine Screen < 50, Urine Cannabis Screen 74.60 H, Urine Color YEL, Urine Clarity CLEAR, Urine pH 5.5, Ur Specific [place] >= 1.030, Urine Protein NEG, Urine Ketones TRACE H, Urine Nitrite NEG, Urine Bilirubin NEG, Urine Urobilinogen 1.0, Ur Leukocyte Esterase NEG, Ur Microscopic EXAM NOT REQUIRED, Urine Hemoglobin NEG, Urine Glucose NEG 09/03/171958: CBC w Diff NO MAN DIFF REQ, RBC 4.00 L, MCV 77.1 L, MCH 24.3 L, RDW 19.6 H, MPV 8.9, Gran % 45.7, Lymphocytes % 30.0, Monocytes % 11.0 H, Eosinophils % 12.8 H, Basophils % 0.5, Absolute Granulocytes 2.4, Absolute Lymphocytes 1.6, Absolute Monocytes 0.6, Absolute Eosinophils 0.7, Absolute Basophils 0, PUBS MCHC 31.5 L 09/03/171944: Anion Gap 9, Estimated GFR > 60, BUN/Creatinine Ratio 20.0, Glucose 72, Calcium 8.8, Total Bilirubin 0.4, AST 21, ALT 27, Alkaline Phosphatase 64, Total Protein 6.4, Albumin 3.2 L, Globulin 3.2, Albumin/Globulin Ratio 1.0 L, Serum Alcohol < 10.0 Patient intoxicated with slurred words, falling asleep during questioning. Likely drug intoxication currently although patient denies. Urine drug screen is pending. 2013 - patient is becoming agitated, yelling and trying to leave the emergency department. Patient placed in 4 extremities restraints given her agitation. This patient has +SI, requires crisis consult prior to being discharged, she cannot sign out AMA. Patient medicated with IM Haldol and Benadryl regarding her agitation Patient sleeping comfortably in stretcher, restraints were removed. The patient was signed out to Dr. Roberts pending crisis evaluation. (Su Garza) (Tasha Fan MD) Comments: Patient has been seen and evaluated by the home theater installer. They're attempting to find her an opiate detox facility. (Neno LOPEZ,Chi Mcguire) Comments: Daughter to bring patient to [facility]. Medication reconcilation printed with discharge paperwork. (Jh LOPEZ,Mikael) Departure Departure Clinical Impression Primary Impression: Opiate abuse, continuous Secondary Impressions: Opiate withdrawal, Suicidal ideation Referrals: Sharri LOPEZ,Luis Antonio Mcguire (PCP/Family) Departure Forms: Customer Survey General Discharge Information (Su Garza) PA/DIRECTOR TEEN POST Co-Sign Statement Statement: ED Attending supervision documentation- [X] I saw and evaluated the patient. I have also reviewed all the pertinent lab results and diagnostic results. I agree with the findings and the plan of care as documented in the PA's/DIRECTOR TEEN POST's documentation. [X] I have reviewed the ED Record and agree with the PA's/DIRECTOR TEEN POST's documentation. [] Additions or exceptions (if any) to the PAs/DIRECTOR TEEN POST's note and plan are summarized below: [] (Tasha Fan MD) PA/DIRECTOR TEEN POST Co-Sign Statement Statement: ED Attending supervision documentation- [] I saw and evaluated the patient. I have also reviewed all the pertinent lab results and diagnostic results. I agree with the findings and the plan of care as documented in the PA's/DIRECTOR TEEN POST's documentation. [x] I have reviewed the ED Record and agree with the PA's/DIRECTOR TEEN POST's documentation. [] Additions or exceptions (if any) to the PAs/DIRECTOR TEEN POST's note and plan are summarized below: [] (Alejandra LOPEZ,Chau Myles) Departure Time of Disposition: 1925 Disposition: HOME OR SELF CARE Condition: Stable PA/DIRECTOR TEEN POST Co-Sign Statement Statement: ED Attending supervision documentation- x I saw and evaluated the patient. I have also reviewed all the pertinent lab results and diagnostic results. I agree with the findings and the plan of care as documented in the PA's/DIRECTOR TEEN POST's documentation. [] I have reviewed the ED Record and agree with the PA's/DIRECTOR TEEN POST's documentation. [] Additions or exceptions (if any) to the PAs/DIRECTOR TEEN POST's note and plan are summarized below: [] (Mikael Peñaloza MD) [] I saw and evaluated the patient. I have also reviewed all the pertinent lab results and diagnostic results. I agree with the findings and the plan of care as documented in the PA's/DIRECTOR TEEN POST's documentation. [x] I have reviewed the ED Record and agree with the PA's/DIRECTOR TEEN POST's documentation. [] Additions or exceptions (if any) to the PAs/DIRECTOR TEEN POST's note and plan are summarized below: [] (Alejandra LOPEZ,Chau Myles) Departure Time of Disposition: 1925 Disposition: HOME OR SELF CARE Condition: Stable PA/DIRECTOR TEEN POST Co-Sign Statement Statement: ED Attending supervision documentation- x I saw and evaluated the patient. I have also reviewed all the pertinent lab results and diagnostic results. I agree with the findings and the plan of care as documented in the PA's/DIRECTOR TEEN POST's documentation. [] I have reviewed the ED Record and agree with the PA's/DIRECTOR TEEN POST's documentation. [] Additions or exceptions (if any) to the PAs/DIRECTOR TEEN POST's note and plan are summarized below: [] (Mikael Peñaloza MD)
[2017-09-03 20:10] LABS: ABSOLUTE BASOPHIL COUNT 0 /CUMM (0.0-0.2); ABSOLUTE EOSINOPHIL COUNT 0.7 /CUMM (0.0-0.7); ABSOLUTE GRANULOCYTE CT 2.4 /CUMM (1.4-6.5); ABSOLUTE LYMPH COUNT 1.6 /CUMM (1.2-3.4); ABSOLUTE MONOCYTE COUNT 0.6 /CUMM (0.10-0.60); BASOPHIL % 0.5 % (0.0-2.0); EOSINOPHIL % 12.8 % (0-5); GRANULOCYTE % 45.7 % (42.2-75.2); HEMATOCRIT 30.9 % (37-47); MEAN CORPUSCULAR HGB 24.3 PG (27.0-31.0); MEAN CORPUSCULAR HGB CONC 31.5 G/DL (33.0-37.0); MEAN CORPUSCULAR VOLUME 77.1 FL (81.0-99.0); MEAN PLATELET VOLUME 8.9 FL (7.4-10.4); PLATELET COUNT 162 /CUMM (130-400); RBC DISTRIBUTION WIDTH 19.6 % (11.5-14.5); WHITE BLOOD CELL COUNT 5.3 /CUMM (4.8-10.8)
--- NOTE | 2017-09-04 10:24 | ED PSYCH CRISIS CONSULTATION ---
Crisis Consult Basic Assessment Date of Consult: 09/04/17 Responsible Person/Accompanied By: self Insurance Authorization: Insurance #1: Insurance name: MEDICARE A Phone number: Policy number: [id number] Group number: Authorization number: ED Provider: Patient's ED Provider: Su Garza Primary Care Physician: Patient's PCP: Luis Antonio Harrell MD PCP's Current Psychiatrist: Luis Antonio Harrell MD PCP [phone] Chief Complaint: ETOH/Drug Related Complaint Patient's Quote: I need help. I tried suboxone but its not working. Present Illness: pt is a 46 yo female presenting to [facility] ED last evening reporting opiate withdrawal and SI. Pt reports her pain management provider "cut her off". Pt had been prescribed 15mg morphine sulftate TID by Dr Valentine. Pt reports she had been overmedicating and had a seizure in his office last week and he notified her he would no longer prescribe for her. Pt reports she has been taking some of her friends suboxone but it isn't stopping her with drawal symptoms. Pt started with pain management following gastric bypass in 2002 and prior to morphine, had been prescribed roxycodone and oxycodone. Pt has a hx of panic attacks and is prescribed xanax by her PCP Luis Antonio Harrell MD. Pt had two strokes in 2015 and has moderate cognitive impairment and aphasia. Pt has difficulty with concentration and expressing language. Pt was inpatient at [facility] in August 2017 due to seizures and was scheduled 08/22 for OPS intake but failed to show. Pt had multiple hospitalizations at [facility] 10 yrs ago for SI. Pt was inpatient at [facility] in March 2017 following an overdose of Xanax. Unclear if overdose was intentional. Pt arrested in 2012 for drug selling charges and mandated to [facility] that she successfully completed. Pt denies etoh and admits to occasional cannabis use. Pt presents as sedated,Ox2, has difficulty concentrating and expressing self. Pt reports suicidal statements are due to experiencing withdrawal symptoms and reports she really doesn't want to harm herself but needs treatment. Pt denies HI/AH/VH. Pt initially expressed wanting suboxone treatment but after further discussion indicated wanting inpatient drug rehab. Pt has been identified for a bed opening at [facility] in [place]. Pt daughter Kelsy agrees to transport pt hugo at 6p when she gets out of work. Patient's Address: [address] [place] [address] Other Phone Number: Who Do You Live With? Significant Other Family/Informants Interviewed: collateral provided by pt sister Julienne Wren [phone] and julius Tierney [phone]. Both expressed concern that pt needs inpatient drug rehab services. Allergies - Coded Allergies: acetaminophen (Intermediate, UPSET STOMACH 08/12/17) PER PATIENT SHE IS ALLERGIC TO ACETAMINOPHEN ibuprofen (Intermediate, ULCERS 08/12/17) cyclobenzaprine (JITTERS 08/12/17) Current Medications - Scheduled Medications Alprazolam 1 MG TABLET 1 TAB PO BID ANXIETY #30 TAB Prescribed by Rosalino Coffman MD on 08/09/17 Dexlansoprazole (Dexilant) 60 MG CAP.BP 1 CAP PO DAILY HEARTBURN (Reported ) Entered as Reported by Alivia Dinero MD on 07/14/16 203 Gabapentin 300 MG CAPSULE 1 CAP PO TID NERVE PAIN #90 (Reported) Entered as Reported by Rossana Crump on 01/03/17 1626 Levetiracetam (Keppra) 750 MG TABLET 1 TAB PO BID SEIZURE 60 Days Prescribed by Berta Keith on 07/18/16 Morphine Sulfate 15 MG TABLET 1 TAB PO TID PAIN 30 Days (Reported) Entered as Reported by Berta Keith on 07/15/16 1632 Morphine Sulfate (Morphine Sulfate ER) 15 MG TABLET.ER 1 TAB PO BID PAIN #60 (Reported) Entered as Reported by Rossana Crump on 05/17/17 2143 Rivaroxaban (Xarelto) 15 MG TABLET 15 MG PO BID DVT #60 TAB Prescribed by Rosalino Coffman MD on 08/09/17 Scheduled PRN Medications Cyclobenzaprine HCl 10 MG TABLET 1 TAB PO TID PRN muscle spasm #30 TAB Prescribed by Thaddeus Roberts MD on 06/18/17 Naloxone HCl (Narcan) 4 MG/ACTUATION SPRAY 4 MG DEJA AD PRN OPIOID INDUCED RESP DEPRESSION #2 (Reported) Entered as Reported by Rossana Crump on 01/03/17 1626 Ondansetron (Zofran Odt) 4 MG TAB.RAPDIS 1 TAB SL TID PRN nausea #10 TAB Prescribed by Mikael Peñaloza MD on 06/21/17 Laboratory Results: Laboratory Tests 09/04/17 0307: Urine Opiates Screen < 100.00, Methadone Screen < 40, Barbiturate Screen < 60, Ur Phencyclidine Scrn < 6.00, Amphetamines Screen 149, U Benzodiazepines Scrn > 800 H, Urine Cocaine Screen < 50, Urine Cannabis Screen 74.60 H, Urine Color YEL, Urine Clarity CLEAR, Urine pH 5.5, Ur Specific [place] >= 1.030, Urine Protein NEG, Urine Ketones TRACE H, Urine Nitrite NEG, Urine Bilirubin NEG, Urine Urobilinogen 1.0, Ur Leukocyte Esterase NEG, Ur Microscopic EXAM NOT REQUIRED, Urine Hemoglobin NEG, Urine Glucose NEG 09/03/171958: CBC w Diff NO MAN DIFF REQ, RBC 4.00 L, MCV 77.1 L, MCH 24.3 L, RDW 19.6 H, MPV 8.9, Gran % 45.7, Lymphocytes % 30.0, Monocytes % 11.0 H, Eosinophils % 12.8 H, Basophils % 0.5, Absolute Granulocytes 2.4, Absolute Lymphocytes 1.6, Absolute Monocytes 0.6, Absolute Eosinophils 0.7, Absolute Basophils 0, PUBS MCHC 31.5 L 09/03/171944: Anion Gap 9, Estimated GFR > 60, BUN/Creatinine Ratio 20.0, Glucose 72, Calcium 8.8, Total Bilirubin 0.4, AST 21, ALT 27, Alkaline Phosphatase 64, Total Protein 6.4, Albumin 3.2 L, Globulin 3.2, Albumin/Globulin Ratio 1.0 L, Serum Alcohol < 10.0 Past History Past Medical History Neurological: seizure (ON KEPPRA ATIVAN but neg EEG), CVA X 2 RESIDUAL WEAKNESS R SIDE EENT: NONE Cardiovascular: NONE Respiratory: NONE Gastrointestinal: GASTRIC BYPASS STOMACH ULCERS Hepatic: NONE Renal: NONE Musculoskeletal: FREQ FALLS "CRUSHED SPINE" CHRONIC BACK/NECK PAIN Psychiatric: anxiety Endocrine: NONE Blood Disorders: NONE Cancer(s): NONE 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 Physical Limitations (Interventions): The patient has a history of having a stroke, which left her with some deficiets. Psychiatric Treatment History Psych Treatment Psychiatric Treatment Yes Inpatient Treatment Yes Outpatient Treatment Yes Diagnosis by History: Anxiety, depression Substance Use/Abuse History Drug Use/Abuse Substances Used/Abused Yes Substance Used/Abused Prescribed Opiates Last Used 3 days ago For how long 15 yrs Substance Abuse Treatment Substance Abuse Treatment Past Substance Abuse TX Yes Inpatient Treatment No Outpatient Treatment Yes Location of Treatment [facility] 2013 Reason for Treatment opiate dependence Dates of Treatment 2013 Response to Treatment pt long hx of pain management prescriptions for morphine sulfate pt reports prescriber "cut her off" 2 weeks ago. Comments: pt reports recently using a friends suboxone but feels its not helping her withdrawal symptoms. Current Mental Status Mental Status Orientation: Confused Affect: Depressed (lethargic) Speech: Delayed, Slurred, Soft Neuro-vegetative: Anhedonia, Concentration Poor, Energy Decreased, Helpless, Loss of Interest, Sleep Disturbance Appearance Appearance- Dress/Hygiene: pt in hospital scrubs; lethargic, slow mumbled speech. Behaviors Thought Process: WNL Thought Content: Visual Hallucinations (reports past hx) Memory: Impaired Insight: Poor SI/HI Risk Assessment Past Suicidal Ideation/Attempts Yes Current Suicidal Ideation/Att No Past Homicidal Ideation/Att: No Current Homicidal Ideation/Attempts No Degree of Intent: Thoughts/No Intent Danger To: Self Gravely Disabled: Lack of Insight, Poor Impulse Control, Poor Judgment Risk Factors: chronic/serious med cond., high anxiety/distress, history of suicide atmpts, SA/MH hospitalized, substance abuse, poor impulse control Lethality Ratin PTSD Checklist PTSD Done? patient declined ED Management Sitter: Yes Restraints: Yes DSM5/PS Stressors/Medical Prob Diagnosis' (DSM 5, Stressors, Medical): Opiate dependence d/o F11.20 Unspecified Anxiety d/o F41.9 multiple health concerns-seizures Current GAF: 25 Comments: pt was seeing Dr Valentine for pain management prescribed morphine sulfate 15mg TID. Pt has been overmedicating and has been cut off from further prescriptions- last ordered on 07/24/17. Pt has been taking Suboxones from her boyfriend but still experiencing pain and withdrawal symptoms Departure Disposition Psych Medical Clearance Date: 09/04/17 Medically Cleared at: 0730 Time Started: 729 Time Ended: 814 Psychiatrist Consulted: Chau Slater MD Date Disposition Established: 09/04/17 Time Disposition Established: 1300 Plan for Disposition - Modality: Inpatient Detoxification Facility: [facility] Rationale for Disposition: Pt has long hx of opiate dependence. Pt will be transported by daughter this evening to [facility] for inpatient drug rehab Referrals Sharri LOPEZ,Luis Antonio Mcguire (PCP/Family)
[2017-09-04 19:57] VITALS: BP 112/66
== END 2017-09-04 19:58 ==
LOC: ERH 16:56
PROVIDERS: Physician Assistant
DX: F11.23 Opioid dependence with withdrawal (principal); R45.851 Suicidal ideations
CPT/HCPCS: 80307; 81003; 96372; G0480; J1200; J1630

== ENCOUNTER 2017-09-25 19:53 | Emergency (ER) | payer OTHER, MEDICARE ==
[~2017-09-25] VITALS: Ht 172.7 cm; Wt 108.9 kg
[2017-09-25 20:28] VITALS: BP 131/81
--- NOTE | 2017-09-25 23:42 | ED MVC/FALL/TRAUMA COMPLAINT ---
History of Present Illness General Chief Complaint: Fall Stated Complaint: PER BOYFRIEND, "SHE FELL" Source: patient, old records, friend Exam Limitations: no limitations Vital Signs & Intake/Output Vital Signs & Intake/Output Vital Signs Date Time Temp Pulse Resp B/P B/P Pulse O2 O2 Flow FiO2 Mean Ox Delivery Rate 09/25 2341 Room Air 09/25 2027 97.0 104 18 131/81 98 Room Air ED Intake and Output 09/26 0000 09/25 1200 Intake Total 0 Output Total Balance 0 Intake, Oral 0 Patient 240 lb Weight Weight Estimated Measurement Method Allergies Coded Allergies: acetaminophen (Intermediate, UPSET STOMACH 08/12/17) PER PATIENT SHE IS ALLERGIC TO ACETAMINOPHEN ibuprofen (Intermediate, ULCERS 08/12/17) cyclobenzaprine (JITTERS 08/12/17) Reconcile Medications Alprazolam 1 MG TABLET 1 TAB PO BID ANXIETY Cyclobenzaprine HCl 10 MG TABLET 1 TAB PO TID PRN muscle spasm Dexlansoprazole (Dexilant) 60 MG CAP.BP 1 CAP PO DAILY HEARTBURN (Reported ) Gabapentin 300 MG CAPSULE 1 CAP PO TID NERVE PAIN (Reported) Levetiracetam (Keppra) 750 MG TABLET 1 TAB PO BID SEIZURE Morphine Sulfate 15 MG TABLET 1 TAB PO TID PAIN (Reported) Morphine Sulfate (Morphine Sulfate ER) 15 MG TABLET.ER 1 TAB PO BID PAIN ( Reported) Naloxone HCl (Narcan) 4 MG/ACTUATION SPRAY 4 MG DEJA AD PRN OPIOID INDUCED RESP DEPRESSION (Reported) Ondansetron (Zofran Odt) 4 MG TAB.RAPDIS 1 TAB SL TID PRN nausea Rivaroxaban (Xarelto) 15 MG TABLET 15 MG PO BID DVT . Triage Note: RECEIVED 46 YO FEMALE C/O "I NEED HELP" I'M IN PAIN IN LOWER BACK AND LEGS AND RIGHT SIDE ALL THE TIME. PT VERY DIFFICULT TO UNDERSTAND IN TRIAGE. PT FELL AT HOME TODAY IN [place] ? PT STATES REPEATEDLY, I NEED HELP. Triage Nurses Notes Reviewed? yes HPI: Patient presents to the emergency department complaining of back pain after she fell down 4 steps. Patient states she lost her balance and fell. Patient denies hitting her head and there was no loss consciousness. Patient states the pain is severe. The pain increased with movement. There is no radiation. The pain is sharp in nature. Past History Travel History Traveled to [place] past 21 day No Medical History Any Pertinent Medical History? 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 No Review of Systems Review of Systems Constitutional: Reports: no symptoms. Respiratory: Reports: no symptoms. Cardiovascular: Reports: no symptoms. Musculoskeletal: Reports: see HPI, back pain. Neurological/Psychological: Reports: no symptoms. Physical Exam Physical Exam General Appearance: well developed/nourished, alert, awake, anxious, moderate distress Head: atraumatic, normal appearance Eyes: Bilateral: PERRL, EOMI. Neck: normal inspection, supple, full range of motion, no midline tenderness Respiratory: normal breath sounds, chest non-tender, no respiratory distress, lungs clear Cardiovascular: regular rate/rhythm, normal peripheral pulses Gastrointestinal: normal bowel sounds, soft, non-tender, no organomegaly Back: normal range of motion, muscle spasm Extremities: normal range of motion, pelvis stable Neurologic/Psych: no motor/sensory deficits, awake, alert, oriented x 3, normal gait, normal mood/affect Skin: intact, normal color, warm/dry Core Measures ACS in differential dx? No CVA/TIA Diagnosis No Sepsis Present: No Sepsis Focused Exam Completed? No Progress Differential Diagnosis: C/T/L spine injury Plan of Care: Orders Procedure Date/time Status XRY-LUMBOSACRAL SPINE AP & LAT 09/25 137 Active Diagnostic Imaging: Viewed by Me: Radiology Read. Discussed w/RAD: Radiology Read. Radiology Impression: PATIENT: ANA CRISTINA LAMBERT PRESENT AGE: 46 PATIENT ACCOUNT NO: [id number] : 68 LOCATION: [facility] ORDERING PHYSICIAN: Chi Lazcano MD SERVICE DATE: 09/25/179 EXAM TYPE: RAD - XRY-LUMBOSACRAL SPINE AP & LAT EXAMINATION: XR LUMBOSACRAL SPINE CLINICAL INFORMATION: Pain after fall COMPARISON: CT 03/02/2017 TECHNIQUE: 4 views of the lumbosacral spine were obtained. FINDINGS: There is anatomic alignment of the lumbar vertebral bodies and posterior elements. Vertebral body heights are maintained. Intervertebral disc spaces appear relatively well preserved. No acute fracture is seen. The sacroiliac joints are intact. Suture lines are noted in the left upper quadrant of the abdomen. IMPRESSION: No acute findings identified. 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 <Electronically signed in Other Vendor System> SIGNED BY: Shawn Gonzalez MD 09/26/17 0053 Comments: Patient is very upset that I will not prescribe her Percocet. When patient was last in the emergency department she went over to [facility] for opiate detox. Patient states that they would not admit her because she did not have any opiates in her system. Departure Departure Disposition: HOME OR SELF CARE Condition: Stable Clinical Impression Primary Impression: Back pain Referrals: Sharri LOPEZ,Luis Antonio Mcguire (PCP/Family) Additional Instructions: USE MOIST HEAT RETURN IF SYMPTOMS WORSEN OR FOR ANY CONCERNS Departure Forms: Customer Survey General Discharge Information
--- NOTE | 2017-09-26 00:53 | RADIOLOGY REPORT ---
EXAMINATION: XR LUMBOSACRAL SPINE CLINICAL INFORMATION: Pain after fall COMPARISON: CT 03/02/2017 TECHNIQUE: 4 views of the lumbosacral spine were obtained. FINDINGS: There is anatomic alignment of the lumbar vertebral bodies and posterior elements. Vertebral body heights are maintained. Intervertebral disc spaces appear relatively well preserved. No acute fracture is seen. The sacroiliac joints are intact. Suture lines are noted in the left upper quadrant of the abdomen. IMPRESSION: No acute findings identified.
== END 2017-09-26 01:00 ==
LOC: ERH 19:53
DX: M54.5 Low back pain (principal)
CPT/HCPCS: 72100

== ENCOUNTER 2017-09-26 12:52 | Emergency (ER) | payer OTHER, MEDICARE ==
--- NOTE | 2017-09-26 13:04 | ED GENERAL ADULT ---
History of Present Illness General Chief Complaint: General Adult Stated Complaint: BIBA FOR ?AMS; ?OVER MEDICATED Source: patient, EMS Exam Limitations: not alert/orientated, intoxication Vital Signs & Intake/Output Vital Signs & Intake/Output Vital Signs Date Time Temp Pulse Resp B/P B/P Pulse O2 O2 Flow FiO2 Mean Ox Delivery Rate 09/27 0344 98.0 88 16 126/72 96 Room Air 09/26 2335 96.0 78 20 123/68 95 Room Air 09/26 2009 98.5 82 19 128/82 98 Room Air 09/26 1724 97.5 70 19 118/78 98 Room Air 09/26 1504 73 16 131/80 98 Room Air 09/26 1454 77 16 96 Room Air 09/26 1300 96.8 84 20 94/53 99 Room Air ED Intake and Output 09/27 0000 09/26 1200 Intake Total 0 Output Total Balance 0 Intake, Oral 0 Allergies Coded Allergies: acetaminophen (Intermediate, UPSET STOMACH 08/12/17) PER PATIENT SHE IS ALLERGIC TO ACETAMINOPHEN ibuprofen (Intermediate, ULCERS 08/12/17) cyclobenzaprine (JITTERS 08/12/17) Reconcile Medications Alprazolam 1 MG TABLET 1 TAB PO BID ANXIETY Cyclobenzaprine HCl 10 MG TABLET 1 TAB PO TID PRN muscle spasm Dexlansoprazole (Dexilant) 60 MG CAP.DRYiselBP 1 CAP PO DAILY HEARTBURN (Reported ) Gabapentin 300 MG CAPSULE 1 CAP PO TID NERVE PAIN (Reported) Levetiracetam (Keppra) 750 MG TABLET 1 TAB PO BID SEIZURE Morphine Sulfate 15 MG TABLET 1 TAB PO TID PAIN (Reported) Morphine Sulfate (Morphine Sulfate ER) 15 MG TABLET.ER 1 TAB PO BID PAIN ( Reported) Naloxone HCl (Narcan) 4 MG/ACTUATION SPRAY 4 MG DEJA AD PRN OPIOID INDUCED RESP DEPRESSION (Reported) Ondansetron (Zofran Odt) 4 MG TAB.RAPDIS 1 TAB SL TID PRN nausea Rivaroxaban (Xarelto) 15 MG TABLET 15 MG PO BID DVT . Triage Nurses Notes Reviewed? yes Onset: Gradual Duration: unknown duration Timing: recent history Injury Environment: home Severity: moderate HPI: 46-year-old female presents to the emergency room c/o dyspnea and requesting methadone. Patient called EMS complaining of shortness of breath and was found by EMS to be smoking a cigarette upon their arrival. Patient was brought to the ER and has been mumbling incoherently. HPI limited d/t patient's intoxication. Patient is requesting pain medication/methadone. She was scheduled for her first appointment at methadone clinic today. EMS report that she took minimum 2 Xanax as well as prescribed morphine. Patient is denying taking any more than does admit to the 2 Xanax. Patient is having difficulty keeping her eyes open and is visually rocking [id number] in her bed. The patient denies chest pain, depression, SI, alcohol use. (Su Garza) Past History Travel History Traveled to [place] past 21 day No Medical History Any Pertinent Medical History? 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 No (Su Garza) Review of Systems Review of Systems Constitutional: Reports: see HPI. EENTM: Reports: no symptoms. Respiratory: Reports: see HPI. Cardiovascular: Reports: no symptoms. GI: Reports: no symptoms. Genitourinary: Reports: no symptoms. Musculoskeletal: Reports: no symptoms. Skin: Reports: no symptoms. Neurological/Psychological: Reports: see HPI. Hematologic/Endocrine: Reports: no symptoms. Immunologic/Allergic: Reports: no symptoms. All Other Systems: Reviewed and Negative (Su Garza) Physical Exam Physical Exam General Appearance: no apparent distress, intoxicated, obese Head: atraumatic, normal appearance Eyes: Bilateral: normal appearance. Ears, Nose, Throat: hearing grossly normal Neck: normal inspection, supple, full range of motion Respiratory: normal breath sounds, no respiratory distress, lungs clear Cardiovascular: regular rate/rhythm Gastrointestinal: normal bowel sounds, soft, non-tender, no organomegaly Back: normal inspection, normal range of motion Extremities: normal inspection, normal range of motion Neurologic/Psych: awake, intoxicated, oriented to person and place Skin: intact, normal color, warm/dry Comments: Exam limited d/t patient's intoxication Core Measures ACS in differential dx? No CVA/TIA Diagnosis: No Sepsis Present: No Sepsis Focused Exam Completed? No (Mónica HOLLOWAY,Su George) Progress Differential Diagnoses I considered the following diagnoses in my evaluation of the patient: [Drug use, drug intoxication, alcohol intoxication, drug withdrawal, ICH] Plan of Care: Orders Procedure Date/time Status ETHANOL 09/26 1323 Complete COMPREHENSIVE METABOLIC PANEL 09/26 1323 Complete CBC WITHOUT DIFFERENTIAL 09/26 1323 Complete URINE DRUG SCREEN FOR ER ONLY 09/26 1304 Active URINALYSIS 09/26 1304 Active Laboratory Tests 09/26/17 1333: Anion Gap 14, Estimated GFR > 60, BUN/Creatinine Ratio 18.6, Glucose 84, Calcium 9.3, Total Bilirubin 0.3, AST 14, ALT 22, Alkaline Phosphatase 74, Total Protein 7.2, Albumin 3.9, Globulin 3.3, Albumin/Globulin Ratio 1.2, CBC w Diff NO MAN DIFF REQ, RBC 4.20, MCV 75.4 L, MCH 24.8 L, MCHC 32.8 L, RDW 19.0 H, MPV 9.1 , Gran % 50.7, Lymphocytes % 34.4, Monocytes % 6.6, Eosinophils % 7.8 H, Basophils % 0.5, Absolute Granulocytes 3.9, Absolute Lymphocytes 2.7, Absolute Monocytes 0.5, Absolute Eosinophils 0.6, Absolute Basophils 0, Serum Alcohol < 10.0 Patient became agitated and combative, medicated with Benadryl and Haldol. Following these medications she is sleeping comfortably in stretcher. Patient removed to monitor leads and got up from bed and fell down hitting her head, she still appears intoxicated and incoherent, cannot answer questions. Will obtain head CT scan to rule out trauma. Had CT scan within normal limits, patient moved hallway bed for close monitoring. Patient has been unable to give urine sample for toxicology yet. 2003 - Patient is sleeping comfortably in stretcher in the hallway. The patient was signed out to Dr. casandra Hoffman pending clinical sobriety and urine toxicology report. Diagnostic Imaging: Viewed by Me: CT Scan. Discussed w/RAD: CT Scan. Radiology Impression: PATIENT: ANA CRISTINA LAMBERT PRESENT AGE: 46 PATIENT ACCOUNT NO: [id number] : 68 LOCATION: [facility] ORDERING PHYSICIAN: Su HOLLOWAY SERVICE DATE: 09/26/17 EXAM TYPE: CAT - CT HEAD WO IV CONTRAST EXAMINATION: CT HEAD WITHOUT CONTRAST CLINICAL INFORMATION: Pain following injury. Trauma. COMPARISON: 08/12/2017. TECHNIQUE: Contiguous helical images of the brain were obtained without IV contrast. Multiplanar reconstructions were performed. DLP: 692 mGy-cm. FINDINGS: There are no pathologic extra-axial fluid collections. The lateral, third, fourth ventricles are nondilated and concordant with the appearance of the sulci. There is no evidence for acute intraparenchymal hemorrhage or infarct. There is neither mass nor mass effect. There is stable encephalomalacia within the left cerebral hemisphere along the MCA territory. There is no shift of midline structures. The paranasal sinuses and mastoid air cells are clear. There are no osseous lesions. IMPRESSION: No evidence for acute intracranial injury. Stable left-sided encephalomalacic changes. DICTATED BY: Jesse Mckeon MD DATE/ TIME DICTATED:09/26/171758 JAZZ MUSICIAN:MISSY DATE/TIME TRANSCRIBED: 09/26/171758 CONFIDENTIAL, DO NOT COPY WITHOUT APPROPRIATE AUTHORIZATION. < Electronically signed in Other Vendor System> SIGNED BY: Jesse Mckeon MD 09/26/171806 Initial ED EKG: none Hand-Off Endorsed To: Mikael Peñaloza MD Endorsed Time: 2004 Pending: labs (Su Garza) Departure Departure Condition: Stable Clinical Impression Primary Impression: Intoxication Secondary Impressions: Fall Qualifiers: Encounter type: initial encounter Qualified Code: W19.XXXA - Unspecified fall, initial encounter Referrals: Sharri LOPEZ,Luis Antonio Mcguire (PCP/Family) (Su Garza) Departure Time of Disposition: 433 Disposition: HOME OR SELF CARE Departure Forms: General Discharge Information PA/LOG BRANDER Co-Sign Statement Statement: ED Attending supervision documentation- x I saw and evaluated the patient. I have also reviewed all the pertinent lab results and diagnostic results. I agree with the findings and the plan of care as documented in the PA's/LOG BRANDER's documentation. [] I have reviewed the ED Record and agree with the PA's/LOG BRANDER's documentation. [] Additions or exceptions (if any) to the PAs/LOG BRANDER's note and plan are summarized below: [] (Jh LOPEZ,Mikael) Critical Care Note Critical Care Note Critical Care Time: non-applicable (Mónica HOLLOWAY,Su George)
[2017-09-26 14:05] LABS: ABSOLUTE BASOPHIL COUNT 0 /CUMM (0.0-0.2); ABSOLUTE EOSINOPHIL COUNT 0.6 /CUMM (0.0-0.7); ABSOLUTE GRANULOCYTE CT 3.9 /CUMM (1.4-6.5); ABSOLUTE LYMPH COUNT 2.7 /CUMM (1.2-3.4); ABSOLUTE MONOCYTE COUNT 0.5 /CUMM (0.10-0.60); BASOPHIL % 0.5 % (0.0-2.0); EOSINOPHIL % 7.8 % (0-5); GRANULOCYTE % 50.7 % (42.2-75.2); HEMATOCRIT 31.7 % (37-47); MEAN CORPUSCULAR HGB 24.8 PG (27.0-31.0); MEAN CORPUSCULAR HGB CONC 32.8 G/DL (33.0-37.0); MEAN CORPUSCULAR VOLUME 75.4 FL (81.0-99.0); MEAN PLATELET VOLUME 9.1 FL (7.4-10.4); PLATELET COUNT 191 /CUMM (130-400); WHITE BLOOD CELL COUNT 7.7 /CUMM (4.8-10.8)
--- NOTE | 2017-09-26 18:07 | CT SCAN REPORT ---
EXAMINATION: CT HEAD WITHOUT CONTRAST CLINICAL INFORMATION: Pain following injury. Trauma. COMPARISON: 08/12/2017. TECHNIQUE: Contiguous helical images of the brain were obtained without IV contrast. Multiplanar reconstructions were performed. DLP: 692 mGy-cm. FINDINGS: There are no pathologic extra-axial fluid collections. The lateral, third, fourth ventricles are nondilated and concordant with the appearance of the sulci. There is no evidence for acute intraparenchymal hemorrhage or infarct. There is neither mass nor mass effect. There is stable encephalomalacia within the left cerebral hemisphere along the MCA territory. There is no shift of midline structures. The paranasal sinuses and mastoid air cells are clear. There are no osseous lesions. IMPRESSION: No evidence for acute intracranial injury. Stable left-sided encephalomalacic changes.
[2017-09-27 03:44] VITALS: BP 126/72
== END 2017-09-27 04:40 ==
LOC: ERH 12:52
PROVIDERS: Physician Assistant
DX: F13.229 Sedative, hypnotic or anxiolytic dependence with intoxication, unspecified (principal)
CPT/HCPCS: 80307; 96372; 96374; G0480; J1200; J1630

== ENCOUNTER 2017-11-04 03:29 | Observation (INO) | payer OTHER, MEDICARE ==
[~2017-11-04] VITALS: Ht 167.6 cm; Wt 104.3 kg
--- NOTE | 2017-11-04 03:35 | ED PSYCHIATRIC COMPLAINT ---
History of Present Illness General Chief Complaint: ETOH/Drug Related Complaint Stated Complaint: BIBA OVERDOSE? Source: patient, old records Exam Limitations: no limitations Vital Signs & Intake/Output Vital Signs & Intake/Output Vital Signs Date Time Temp Pulse Resp B/P B/P Pulse O2 O2 Flow FiO2 Mean Ox Delivery Rate 11/05 1211 97.9 103 22 126/75 100 Room Air 03/06 0959 97.0 80 18 110/70 96 Room Air 03/06 0623 98.2 81 16 103/59 100 Room Air 03/05 2229 98.6 82 14 114/72 100 Room Air 03/05 1821 98.7 86 14 105/68 100 Room Air 03/05 1620 98.4 79 14 118/70 100 Room Air 03/05 1401 97.5 70 14 124/91 98 Room Air 03/05 1357 98.2 70 18 120/70 98 Room Air Room Air ED Intake and Output 03/ 0000 03/05 1200 Intake Total 0 Output Total Balance 0 Intake, Oral 0 Patient 230 lb Weight Weight Reported by Patient Measurement Method SEE NURSING NOTES Allergies Coded Allergies: acetaminophen (Intermediate, UPSET STOMACH 08/12/17) PER PATIENT SHE IS ALLERGIC TO ACETAMINOPHEN ibuprofen (Intermediate, ULCERS 08/12/17) cyclobenzaprine (JITTERS 08/12/17) Reconcile Medications Alprazolam 1 MG TABLET 1 TAB PO BID ANXIETY Cyclobenzaprine HCl 10 MG TABLET 1 TAB PO TID PRN muscle spasm Dexlansoprazole (Dexilant) 60 MG CAP.DRYiselBP 1 CAP PO DAILY HEARTBURN (Reported ) Gabapentin 300 MG CAPSULE 1 CAP PO TID NERVE PAIN (Reported) Levetiracetam (Keppra) 750 MG TABLET 1 TAB PO BID SEIZURE Morphine Sulfate 15 MG TABLET 1 TAB PO TID PAIN (Reported) Morphine Sulfate (Morphine Sulfate ER) 15 MG TABLET.ER 1 TAB PO BID PAIN ( Reported) Naloxone HCl (Narcan) 4 MG/ACTUATION SPRAY 4 MG DEJA AD PRN OPIOID INDUCED RESP DEPRESSION (Reported) Ondansetron (Zofran Odt) 4 MG TAB.RAPDIS 1 TAB SL TID PRN nausea Rivaroxaban (Xarelto) 15 MG TABLET 15 MG PO BID DVT . Triage Nurses Notes Reviewed? yes Onset: Abrupt Duration: unknown duration Timing: single episode today Severity: moderate, severe Associated Symptoms: suicidal ideation HPI: This is a 47-year-old female with history of previous stroke, seizures, benzodiazepine dependence and abuse who presents via EMS from home for a reported suicide attempt. According to EMS and police her significant other called after she reported overdosing on 30 pills of Xanax. They found a bottle for 7 pills that was just filled a few days ago. She told him she was stuck probably other medications and then told me that she took her boyfriend's medications. She also admits to drinking 2 glasses of wine in an attempt to kill herself tonight. (Meng LOPEZ,Tasha) Past History Medical History Any Pertinent Medical History? 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 No (Tasha Fan MD) Review of Systems Review of Systems Constitutional: Reports: see HPI (LIMITED PER PATIENT CONDITION). (Tasha Fan MD) Physical Exam Physical Exam General Appearance: well developed/nourished, lethargic, mild distress, moderate distress, obese Head: atraumatic Eyes: Bilateral: PERRL, EOMI (4 MM). Ears, Nose, Throat: normal pharynx, hearing grossly normal Neck: normal inspection, supple, full range of motion Respiratory: normal breath sounds, chest non-tender, no respiratory distress Cardiovascular: regular rate/rhythm, normal peripheral pulses Gastrointestinal: normal bowel sounds, soft, non-tender Neurological/Psychiatric: no motor/sensory deficits, AWAKE, LETHARGIC Appearance/Memory/Insight: disheveled, impaired insight Behavoir/Eye Contact/Speech: decreased rate of speech Thoughts/Hallucinations: UNABLE TO ASSES Skin: intact, normal color, warm/dry SAD PERSONS SAD PERSONS Response Value Age <19 or >45 years? yes 1 Previous Attempts/Psych Care yes 1 Excessive Ethanol/Drug Use? yes 1 Rational Thinking Loss? yes 2 Organized/Serious Attempt yes 2 Total 7 SAD PERSONS Done? yes (Tasha Fan MD) Progress Differential Diagnosis: SUICIDE ATTEMPT, XANAX OVERDOSE, ALCOHOL INTOXICATION, DEPRESSION, BENZO ABUSE Plan of Care: Orders Procedure Date/time Status Admit to inpatient psych 11/05 1333 Active Discharge Patient 11/05 1040 Active TSH REFLEX 11/04 0358 Active LIPID PANEL 11/04 0358 Active GLYCOSYLATED HGB 11/04 0358 Active Current Medications Sig/Isabel Start time Last Medication Dose Stop Time Status Admin Alprazolam 1 MG TID 11/05 1024 AC 11/05 (Xanax) 11/12 1023 1102 Rivaroxaban 20 MG 1700 11/04 1700 AC 11/04 (Xarelto) 1710 Gabapentin 300 MG TID 11/04 1000 AC 11/05 (Neurontin) 1102 Levetiracetam 750 MG BID 11/04 1000 AC 11/05 (Keppra) 1102 4:32 AM PATIETN REQUIRES MEDICAL/CHEMICAL RESTRAINTS Initial ED EKG: NSR, LAD Prior EKG: unchanged Rhythm Strip: normal sinus rhythm Hand-Off Endorsed To: Mikael Peñaloza MD Endorsed Time: 07 Pending: consult (CRISIS), labs (UTOX) (Tasha Fan MD) Hand-Off Endorsed To: Chau Roberts MD Endorsed Time: 1899 Pending: consult (crisis disposition) (Mikael Peñaloza MD) Comments: Patient has been seen and evaluated by cardio clinician. A bed search underway. (Chi Lazcano MD) Departure Departure Condition: Stable Clinical Impression Primary Impression: Benzodiazepine overdose Secondary Impressions: Suicide attempt Referrals: Sharri LOPEZ,Luis Antonio Mcguire (PCP/Family) Departure Forms: Customer Survey General Discharge Information (Tasha Fan MD) Departure Disposition: STILL A PATIENT Psych Admission Note Psychiatric Admission: I have seen and evaluated ANA CRISTINA LAMBERT. I have also reviewed all the pertinent lab results and diagnostic results. ANA CRISTINA LAMBERT will be admitted to our inpatient Psychiatric unit for treatment and care. (Chi Lazcano MD) Critical Care Note Critical Care Note Critical Care Time: 30-74 min (Tasha Fan MD) ED Attending Observation Initial Observation Note: I have seen and personally examined ANA CRISTINA LAMBERT on 11/04/17 at 0340. I agree with the current emergency department documentation. The disposition (admission or discharge) is uncertain at this time, she needs a period of observation for the following reason(s): [LABS, ETOH, UTOX, MONITOR VITAL SIGNS, MONITOR FOR ANY RESPIRATORY DEPRESSION, SITTER ORDER, CRISIS CONSULTATION WHEN MEDICALLY STABLE] The ED Nurse caring for this patient has been personally informed as to what the patient is being observed for. (Meng LOPEZ,Tasha) Observation Re-Evaluation: I have reevaluated ANA CRISTINA LAMBERT on 11/04/17 at 2246. The physical findings that support the continued need to observe this patient include ... pt is resting comfortably... awaiting crises eval in the AM. (Alejandra LOPEZ,Chau Myles) Observation Discharge: I have reevaluated ANA CRISTINA LAMBERT on 11/05/17 at 1040. The patient is: (): Stable for discharge (): To be admitted to Nursing Floor (): To be placed in Observation on Nursing Floor ([X]): For transfer to other facility The patient was being observed for [depression with suicidal ideations.] As a result of that observation, I have determined [patient to be transferred to an inpatient psychiatric facility.]. (Neno LOPEZ,Chi Mcguire)
[2017-11-04 04:10] LABS: ABSOLUTE BASOPHIL COUNT 0 /CUMM (0.0-0.2); ABSOLUTE EOSINOPHIL COUNT 0.5 /CUMM (0.0-0.7); ABSOLUTE GRANULOCYTE CT 4.2 /CUMM (1.4-6.5); ABSOLUTE LYMPH COUNT 2.4 /CUMM (1.2-3.4); ABSOLUTE MONOCYTE COUNT 0.6 /CUMM (0.10-0.60); BASOPHIL % 0.6 % (0.0-2.0); EOSINOPHIL % 6.6 % (0-5); GRANULOCYTE % 54.6 % (42.2-75.2); HEMATOCRIT 33.1 % (37-47); MEAN CORPUSCULAR HGB 24.4 PG (27.0-31.0); MEAN CORPUSCULAR VOLUME 76.3 FL (81.0-99.0); MEAN PLATELET VOLUME 8.5 FL (7.4-10.4); PLATELET COUNT 220 /CUMM (130-400); RBC DISTRIBUTION WIDTH 18.6 % (11.5-14.5); RED BLOOD CELL CT 4.34 /CUMM (4.20-5.40); WHITE BLOOD CELL COUNT 7.7 /CUMM (4.8-10.8)
--- NOTE | 2017-11-04 13:46 | ED PSY CRISIS COLLATERAL NOTE ---
Collateral Note Collateral Note Family/Inform/[place] Contacts: Crisis spoke with Julienne Holger, pt's aunt, as mother (Julienne Robison) was sleeping. Both can be reached at [phone]. Julienne Negro stated that this is an on-going cycle with the pt, over using medications and then coming into the ED. Julienne Negro states she has had two strokes and multiple seizures. She notes that the pt was on pain medication at one point but see Dr. Harrell at this time whom per record prescribes the xanax. Aunt called back to state that she is going to related to housing issues (not criminal).
--- NOTE | 2017-11-05 08:28 | ED PSYCH CRISIS CONSULTATION ---
See Addendum Crisis Consult Basic Assessment Date of Consult: 11/05/17 Responsible Person/Accompanied By: self/biba Insurance Authorization: Insurance #1: Insurance name: MEDICARE A Phone number: Policy number: [id number] Group number: Authorization number: ED Provider: Patient's ED Provider: Tasha Fan MD Primary Care Physician: Patient's PCP: Luis Antonio Harrell MD PCP's Current Psychiatrist: none PCP Sharri prescribes medicatiom Chief Complaint: ETOH/Drug Related Complaint Patient's Quote: I swallowed all my Xanax Present Illness: Pt is a 47 yo female biba early Saturday morning following Xanax overdose. Pt is on an [employer] PEER due to taking 40 Xanax pills and statement she wanted to kill herself. Pt bf reports they are facing pending eviction this week and were looking for a new rent on Saturday. He reports pt was dysphoric and anxious as they are having a difficult time finding adequate housing and are facing homelessness. He reports pt was tearful/upset when he went to sleep and she woke him at 3am stating she took all her Xanax pills and to call 911. He reports thinking it may have been a suicide attempt. Pt reports depression and anxiety related to eviction but denies overdose was a suicide attempt. Pt reports easily becoming overwhelmed with emotions and sometimes impulsively takes too much of her medication. Pt denies current SI/HI but reports prior hx of SI. Pt denies current AH/VH but reports a hx of. Pt denies recent marijuana use though urine tox screen was positive. Pt denies recent opiate use. Pt has a hx of opiate dependence and was discharged by this advertising copywriter Sep 03 2017 to [facility] for detox from opiates. Pt reports no opiate use since discharge.Pt reports starting with pain management following gastric bypass in 2002 and prior to morphine, had been prescribed roxycodone and oxycodone. Pt has a hx of panic attacks and is prescribed xanax by her PCP Luis Antonio Harrell MD. Pt had two strokes in 2015 and has moderate cognitive impairment and aphasia. Pt has difficulty with concentration and expressing language. Pt was inpatient at [facility] in August 2017 due to seizures and was scheduled 08/22 for OPS intake but failed to show. Pt had multiple hospitalizations at [facility] 10 yrs ago for SI. Pt was inpatient at [facility] in March 2017 following an overdose of Xanax. Unclear if overdose was intentional. Pt arrested in 2012 for drug selling charges and mandated to [facility] that she successfully completed. Pt also reports hx of outpatient at [facility]. Pt was unable to be seen yesterday due continued somnalence. This morning pt presents as alert, anxious and OX3, verbalizing need to discharge because she has housing court appt tomorrow. Pt appears to have fair to poor insight and judgement related to severity and risk of reckless medication overuse. Case reviewed with Dr Slater with pt requiring inpatient psychiatric admission. Patient's Address: [address] [place] [address] Other Phone Number: Who Do You Live With? Significant Other (Pepe Quickos) Family/Informants Interviewed: Collateral provided by pt bf Pepe Lewis . He reports concern pt has been depressed and under alot of stress related to pending eviction. He reports he went to bed Saturday evening and pt was depressed and she woke him at 3a and said she took all her pills and for him to call 911. Allergies - Coded Allergies: acetaminophen (Intermediate, UPSET STOMACH 08/12/17) PER PATIENT SHE IS ALLERGIC TO ACETAMINOPHEN ibuprofen (Intermediate, ULCERS 08/12/17) cyclobenzaprine (JITTERS 08/12/17) Current Medications - Scheduled Medications Alprazolam 1 MG TABLET 1 TAB PO BID ANXIETY #30 TAB Prescribed by Rosalino Coffman MD on 08/09/17 Dexlansoprazole (Dexilant) 60 MG CAP.BP 1 CAP PO DAILY HEARTBURN (Reported ) Entered as Reported by Alivia Dinero MD on 07/14/162038 Gabapentin 300 MG CAPSULE 1 CAP PO TID NERVE PAIN #90 (Reported) Entered as Reported by Rossana Crump on 01/03/17 1626 Levetiracetam (Keppra) 750 MG TABLET 1 TAB PO BID SEIZURE 60 Days Prescribed by Berta Keith on 07/18/16 Morphine Sulfate 15 MG TABLET 1 TAB PO TID PAIN 30 Days (Reported) Entered as Reported by Berta Keith on 07/15/16 1632 Morphine Sulfate (Morphine Sulfate ER) 15 MG TABLET.ER 1 TAB PO BID PAIN #60 (Reported) Entered as Reported by Rossana Crump on 05/17/17 2143 Rivaroxaban (Xarelto) 15 MG TABLET 15 MG PO BID DVT #60 TAB Prescribed by Rosalino Coffman MD on 08/09/17 Scheduled PRN Medications Cyclobenzaprine HCl 10 MG TABLET 1 TAB PO TID PRN muscle spasm #30 TAB Prescribed by Thaddeus Roberts MD on 06/18/17 Naloxone HCl (Narcan) 4 MG/ACTUATION SPRAY 4 MG DEJA AD PRN OPIOID INDUCED RESP DEPRESSION #2 (Reported) Entered as Reported by Rossana Crump on 01/03/17 1626 Ondansetron (Zofran Odt) 4 MG TAB.RAPDIS 1 TAB SL TID PRN nausea #10 TAB Prescribed by Mikael Peñaloza MD on 06/21/17 Past History Past Medical History Neurological: seizure (ON KEPPRA ATIVAN but neg EEG), CVA X 2 RESIDUAL WEAKNESS R SIDE EENT: NONE Cardiovascular: NONE Respiratory: NONE Gastrointestinal: GASTRIC BYPASS STOMACH ULCERS Hepatic: NONE Renal: NONE Musculoskeletal: FREQ FALLS "CRUSHED SPINE" CHRONIC BACK/NECK PAIN Psychiatric: anxiety Endocrine: NONE Blood Disorders: NONE Cancer(s): NONE PAY AGENT/Reproductive: TUBAL Past Surgical History Surgical History: , hysterectomy, tubal ligation, GASTRIC BYPASS Psychosocial History Strengths/Capabilities: The patient has Social Security Disability and appears to have a supportive family. Pt agrees to wanting treatment services to better manage stress/anxiety Physical Limitations (Interventions): The patient has a history of having a stroke, which left her with some deficits. Psychiatric Treatment History Psych Treatment Psychiatric Treatment Yes Inpatient Treatment Yes Outpatient Treatment Yes Location of Treatment [facility], [facility], [facility], [facility] Reason for Treatment depression anxiety polysubstance use Dates of Treatment inpatient dating back 10yrs ago at [facility]. Most recent [place] 2016 Response to Treatment pt continues to struggle with anxiety and reliance on prescribed benzos Diagnosis by History: Anxiety, depression Substance Use/Abuse History Drug Use/Abuse 1 Substances Used/Abused Yes Substance Used/Abused Benzodiazepines Last Used Saturday night How much used/taken the whole bottle. Prescription filled saturday How often prescribed 1mg TID Drug Use/Abuse 2 Substances Used/Abused Yes Substance Used/Abused Non-Prescribed Opiates Last Used 2 months ago Drug Use/Abuse 3 Substances Used/Abused Yes Substance Used/Abused Marijuana Substance Abuse Treatment Substance Abuse Treatment Past Substance Abuse TX Yes Inpatient Treatment Yes Outpatient Treatment Yes Location of Treatment [facility] Reason for Treatment opiate and benzo withdrawal Dates of Treatment most recent [facility] Sep 2017 Response to Treatment pt reports no opiate use since Sep 2017 Comments: pt filled Xanax prescription on Wednesday 11/01 and finished the bottle prior to coming to ED 11/04. Pt denies marijuana use though tox screen is positive. Hx of opiate abuse but no recent use. Current Mental Status Mental Status Orientation: Person, Place, Situation Affect: Depressed, Flat Speech: Soft (aphasia) Neuro-vegetative: Concentration Poor, Helpless, Sleep Disturbance Appearance Appearance- Dress/Hygiene: hospital scrubs, alert, eyeglasses Behaviors Thought Process: WNL Thought Content: WNL Memory: Impaired Insight: Fair SI/HI Risk Assessment Past Suicidal Ideation/Attempts Yes Current Suicidal Ideation/Att No Past Homicidal Ideation/Att: No Current Homicidal Ideation/Attempts No Degree of Intent: None Danger To: Self Gravely Disabled: Inability, Poor Impulse Control, Poor Judgment Risk Factors: chronic/serious med cond., high anxiety/distress, history of suicide atmpts, SA/MH hospitalized, substance abuse, poor impulse control Lethality Ratin PTSD Checklist PTSD Done? patient declined ED Management Sitter: Yes Restraints: Yes DSM5/PS Stressors/Medical Prob Diagnosis' (DSM 5, Stressors, Medical): Unspecified Depressive D/O F32.9 Unspecified Anxiety d/o F43.12 Benzo Use D/O F13.20 Opiod Use D/O F11.20 Cannabis Use D/O F12.20 aphasia gastric bypass 2002 hx of seizures pending eviction Current GAF: 25 Comments: Pt with long hx of depression, anxiety and problem substance use. Most recent primary stressor is pending eviction and concern she and bf have no place to go. Departure Disposition Psych Medical Clearance Date: 11/05/17 Medically Cleared at: 0700 Time Started: 0700 Time Ended: 814 Psychiatrist Consulted: Chau Slater MD Date Disposition Established: 11/05/17 Time Disposition Established: 814 Plan for Disposition - Modality: Inpatient Psychiatry Rationale for Disposition: Medication evaluation and mood stabilization Referrals Sharri LOPEZ,Luis Antonio Mcguire (PCP/Family)
[2017-11-05 14:11] VITALS: BP 130/67
== END 2017-11-05 15:44 | disposition other institution (70) ==
LOC: ERH 03:29 → ERHI 03:41 → EDBEDREQTM 11-05 13:40 → EDBEDREQSVC 11-05 13:40 → EDBEDREQ 11-05 13:40 → EDBEDREQDT 11-05 13:40 → ENTRNSPT 11-05 14:57 → EDTRNSPT 11-05 15:39 → EDTRNSPTSTS 11-05 15:39 → CMPTRNSPT 11-05 15:43 → ERHI 11-05 15:44
PROVIDERS: Emergency Medicine
DX: T42.4X2A Poisoning by benzodiazepines, intentional self-harm, initial encounter (principal); I69.351 Hemiplegia and hemiparesis following cerebral infarction affecting right dominant side; R56.9 Unspecified convulsions; F41.9 Anxiety disorder, unspecified; F13.20 Sedative, hypnotic or anxiolytic dependence, uncomplicated; Z79.899 Other long term (current) drug therapy
CPT/HCPCS: 80307; 93005; 93010; 96372; 99291; G0378; G0463; G0480; J1630; J1953; J3490

== ENCOUNTER 2017-11-05 13:12 | Inpatient (IN) | payer OTHER, MEDICARE ==
[~2017-11-05] VITALS: Ht 170.2 cm; Wt 102.7 kg
--- NOTE | 2017-11-05 13:27 | IP CRISIS DIAG ASSESS PSYCH ---
Diagnostic Assessment Basic Assessment Insurance Authorization: Insurance #1: Insurance name: MEDICARE A Spodly/Kailash Policy number: [id number] Group number: Authorization number: [id number] Primary Care Physician: Patient's PCP: Luis Antonio Harrell MD PCP's Patient's Quote: I swallowed all my xanax Present Illness: Pt is a 47 yo female biba early Saturday morning following Xanax overdose. Pt is on an [place] [employer] PEER due to taking 40 Xanax pills and statement she wanted to kill herself. Pt bf reports they are facing pending eviction this week and were looking for a new rent on Saturday. He reports pt was dysphoric and anxious as they are having a difficult time finding adequate housing and are facing homelessness. He reports pt was tearful/upset when he went to sleep and she woke him at 3am stating she took all her Xanax pills and to call 911. He reports thinking it may have been a suicide attempt. Pt reports depression and anxiety related to eviction but denies overdose was a suicide attempt. Pt reports easily becoming overwhelmed with emotions and sometimes impulsively takes too much of her medication. Pt denies current SI/HI but reports prior hx of SI. Pt denies current AH/VH but reports a hx of. Pt denies recent marijuana use though urine tox screen was positive. Pt denies recent opiate use. Pt has a hx of opiate dependence and was discharged by this curriculum writer Sep 03 2017 to [facility] for detox from opiates. Pt reports no opiate use since discharge.Pt reports starting with pain management following gastric bypass in 2002 and prior to morphine, had been prescribed roxycodone and oxycodone. Pt has a hx of panic attacks and is prescribed xanax by her PCP Luis Antonio Harrell MD. Pt had two strokes in 2016 and has moderate cognitive impairment and aphasia. Pt has difficulty with concentration and expressing language. Pt was inpatient at [facility] in August 2017 due to seizures and was scheduled 08/22 for OPS intake but failed to show. Pt had multiple hospitalizations at [facility] 10 yrs ago for SI. Pt was inpatient at [facility] in March 2017 following an overdose of Xanax. Unclear if overdose was intentional. Pt arrested in 2012 for drug selling charges and mandated to [facility] that she successfully completed. Pt also reports hx of outpatient at [facility]. Pt was unable to be seen yesterday due continued somnalence. This morning pt presents as alert, anxious and OX3, verbalizing need to discharge because she has housing court appt tomorrow. Pt appears to have fair to poor insight and judgement related to severity and risk of reckless medication overuse. Case reviewed with Dr Slater with pt requiring inpatient psychiatric admission. Patient's Address: [address] [place] [address] Other Phone Number: Who Do You Live With? Significant Other Feel Safe Where You Live? Yes Feel Safe in Your Relationship Yes Marital Status: single Do You Have Children? Yes Primary Language? Tamazight Language(s) Spoken At Home: Tamazight, Portuguese Family/Informants Interviewed: collateral provided by pt bf Pepe Lewis . He reports concern pt has been depressed and under al ot of stress related to pending eviction. He reports he went to bed Saturday evening and pt was depressed and she woke him at 3am and said she took all her pills and for him to call 911. Allergies - Coded Allergies: acetaminophen (Intermediate, UPSET STOMACH 08/12/17) PER PATIENT SHE IS ALLERGIC TO ACETAMINOPHEN ibuprofen (Intermediate, ULCERS 08/12/17) cyclobenzaprine (JITTERS 08/12/17) Current Medications - Scheduled Medications Alprazolam 1 MG TABLET 1 TAB PO BID ANXIETY #30 TAB Prescribed by Rosalino Coffman MD on 08/09/17 Dexlansoprazole (Dexilant) 60 MG CAP.BP 1 CAP PO DAILY HEARTBURN (Reported ) Entered as Reported by Alivia Dinero MD on 07/14/162038 Gabapentin 300 MG CAPSULE 1 CAP PO TID NERVE PAIN #90 (Reported) Entered as Reported by Rossana Crump on 01/03/17 1626 Levetiracetam (Keppra) 750 MG TABLET 1 TAB PO BID SEIZURE 60 Days Prescribed by Berta Keith on 07/18/16 Morphine Sulfate 15 MG TABLET 1 TAB PO TID PAIN 30 Days (Reported) Entered as Reported by Berta Keith on 07/15/16 1632 Morphine Sulfate (Morphine Sulfate ER) 15 MG TABLET.ER 1 TAB PO BID PAIN #60 (Reported) Entered as Reported by Rossana Crump on 05/17/17 2143 Rivaroxaban (Xarelto) 15 MG TABLET 15 MG PO BID DVT #60 TAB Prescribed by Rosalino Coffman MD on 08/09/17 Scheduled PRN Medications Cyclobenzaprine HCl 10 MG TABLET 1 TAB PO TID PRN muscle spasm #30 TAB Prescribed by Thaddeus Roberts MD on 06/18/17 Naloxone HCl (Narcan) 4 MG/ACTUATION SPRAY 4 MG DEJA AD PRN OPIOID INDUCED RESP DEPRESSION #2 (Reported) Entered as Reported by Rossana Crump on 01/03/17 1626 Ondansetron (Zofran Odt) 4 MG TAB.RAPDIS 1 TAB SL TID PRN nausea #10 TAB Prescribed by Mikael Peñaloza MD on 06/21/17 Consequences of Psych Med Use: pt prescribed medications by PCP Toxicology Screen Completed? Yes Results: positive Symptoms of Use: benzo, cannabis Past History Past Surgical History Surgical History , GASTRIC BYPASS TUBAL LIGATION Abuse/Trauma History Trauma History/Current Trauma: Denies Legal History Current Legal Status: none Have you ever been arrested? Yes Number of Arrests: [address] Dates: na Psychosocial History Strengths/Capabilities: The patient has Social Security Disability and appears to have a supportive family. Pt agrees to wanting treatment services to better manage stress/anxiety Physical Limitations (Interventions): The patient has a history of having a stroke, which left her with some deficits. Psychiatric Treatment History Psych Treatment Psychiatric Treatment Yes Inpatient Treatment Yes Outpatient Treatment Yes Location of Treatment [facility], [facility] Reason for Treatment depression anxiety polysubstance abuse Dates of Treatment inpatient dating back 10 yrs at [facility]. Most recent [place] 2016 Response to Treatment pt continues to struggle with anxiety and reliance on benzos Diagnosis by History: Anxiety, depression Risk Factors: chronic/serious med cond., high anxiety/distress, history of suicide atmpts, SA/MH hospitalized, substance abuse, poor impulse control Substance Use/Abuse History Drug Use/Abuse minimum 12mo Hx Substances Used/Abused Yes Substance Used/Abused Benzodiazepines Last Used saturday How much used/taken the whole bottle of xanax How often prescribed 1mg TID Substance Abuse Treatment Substance Abuse Treatment Past Substance Abuse TX Yes Inpatient Treatment Yes Outpatient Treatment Yes Location of Treatment [facility]; [place] Reason for Treatment opiate and benzo withdrawal Dates of Treatment most recent [facility] Sep 2017 Response to Treatment reports no opiate use since Sep 2017 Comments: pt filled Xanax prescription on Wednesday 11/01 and finished the bottle prior to coming to ED 11/04. Pt denies marijuana use though tox screen is positive. Hx of opiate abuse but no recent use. Education History Highest Level of Education: high school/GED Preferred Learning Style: visual, auditory, experiential Current Mental Status Mental Status Orientation: Person, Place, Situation Affect: Depressed, Flat Speech: Soft (aphasia) Neuro-vegetative: Concentration Poor, Energy Decreased, Helpless, Sleep Disturbance Appearance Appearance- Dress/Hygiene: hospital scrubs; alert; eyeglasses Behaviors Thought Process: WNL Thought Content: WNL Memory: Impaired Insight: Fair SI/HI Risk Assessment - Minimum 6mo History- Past Suicidal Ideation/Attempts Yes Current Suicidal Ideation/Att No (denies) Past Homicidal Ideation/Att: No Current Homicidal Ideation/Attempts No Risk Factors: chronic/serious med cond., high anxiety/distress, history of suicide atmpts, SA/MH hospitalized, substance abuse, poor impulse control Needs/Init TX Plan/Goals: Psychiatric assessmet medication evaluation Individual, group and family meetings Coordinated discharge plans AUDIT-C Questionnaire: AUDIT-C Questionnaire: Response Value ETOH use in the past year Monthly or less 1 # drinks typical/day 1 or 2 0 6 or > drinks per occasion Never 0 Total 1 DSM5/PS Stressors/Medical Prob Diagnosis' (DSM 5, Stressors, Medical): Unspecified Depressive D/O F32.9 Unspecified Anxiety d/o F43.12 Benzo Use D/O F13.20 Opiod Use D/O F11.20 Cannabis Use D/O F12.20 aphasia gastric bypass 2002 hx of seizures pending eviction Current GAF: 25 Comments: Pt with long hx of depression, anxiety and problem substance use. Most recent primary stressor is pending eviction and concern she and bf have no place to go.
[2017-11-05 15:54] VITALS: BP 132/76
[2017-11-05 17:18] VITALS: BP 132/76
--- NOTE | 2017-11-05 18:24 | Event Note ---
Event Note Event Note: This is 47 years old woman w/ PMH of seizure maintained on keppra, extenssive Hx of BNZand opidiod abuse/dependence admitted after overdosing on xanax w/ intention to hurt herself. The RR was anounced after her boyfirend told the nurse that she is not responssive. Medical team immediately presented at sight. I spoke to the nursing admin who was presented at the seen at that time. According to her, while she was checking the patient VS, she did not resopond to boyfriend. This episode was brief, aleisha 1 min or two. Patient did not have any LOC, shaking movement, stiffness, incontinence. After the spell patient came back to to her baseline ( slurred speach). ROS: unimpressive; VSS; PH/EX: Alert and oriented, she is complainig about other patients are talikng loud while no one is present in the kitchen except for the medical and nursing team; head and neck: atraumatic, no toungue bite; Cardiac and lungs: WNL; neuro: Alert and verbal, slurred ( baseline), CN grossly normal. Extremities: wnl DDx: non-conconvulsive epilepsy vs epilepcy vs medication SE vs withrawl related seizure vs psychogenic ( pseudo seizure) plan - seizure percussion - continue her keppra and scheduled doses of ativan - Haldol for agitation - if patient has an extenssive withnessed un responssiveness there might be a higher likelihood of non-convulssive seizure
[2017-11-05 20:00] VITALS: BP 138/78
[2017-11-06 07:37] VITALS: BP 120/68
--- NOTE | 2017-11-06 08:27 | CPS PROVIDER INIT ASMT PSYCH ---
Psychiatric Admission Damage Prevention Coordinator's Note Reviewed: Yes Patient Seen and Examined: Yes Identifying Information: Ann-Marie Barnes is a 47-year-old who was brought in to [facility] ED by ambulance early Saturday morning (11/04/2017) following A Xanax overdose. Chief Complaint: "I swallowed all my Xanax" Reaction to Hospitalization: The patient was admitted voluntarily History of Present Illness Onset of Illness: Pt reported that she took 40 Xanax pills/wanted to kill herself. Pt.'s boyfriend reported that they are facing pending eviction this week and were looking for a new rent on Saturday. He reports pt was dysphoric and anxious as they are having a difficult time finding adequate housing and are facing homelessness. He reports pt was tearful/upset when he went to sleep and she woke him at 3am stating she took all her Xanax pills and to call 911. He reports thinking it may have been a suicide attempt. Pt reports depression and anxiety related to eviction but denies overdose was a suicide attempt. Pt reports easily becoming overwhelmed with emotions and sometimes impulsively takes too much of her medication. Circumstances Leading to Admission: Overdose on Xanax Problem(s) Justifying Need for Admission: Overdose and a suspected suicide attempt Past Psychiatric History Past Diagnosis(es)- if any: History of anxiety and depression Past Precipitating Factors- if any: The patient and her boyfriend are being evicted from their apartment - Include inpatient and outpatient treatment Treatment History: The patient reportedly has had several inpatient psychiatric hospitalizations including at [facility] reportedly for thoughts of suicide the patient was also admitted to [facility] on the inpatient psychiatric unit in March 2017 also following an overdose on Xanax History of Suicide Attempts or Gestures There was a previous dose in March 2017 but it was not clear whether it was a suicide attempt or no Substance Abuse History: 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) the patient also has history of alcohol use disorder and has had treatment for that with [facility] as well as [facility]'s IOP Allergies: Coded Allergies: acetaminophen (Intermediate, UPSET STOMACH 08/12/17) PER PATIENT SHE IS ALLERGIC TO ACETAMINOPHEN ibuprofen (Intermediate, ULCERS 08/12/17) cyclobenzaprine (JITTERS 08/12/17) Home Med List: The patient reported that she has been getting medications from her primary care physician not from a psychiatrist she reportedly has been on Xanax 1 mg 3 times a day - Include any medical condition(s) that may - impact the patient's recovery/remission Past History Medical History Neurological: seizure (ON KEPPRA ATIVAN but neg EEG), CVA X 2 RESIDUAL WEAKNESS R SIDE EENT: NONE Cardiovascular: NONE Respiratory: NONE Gastrointestinal: GASTRIC BYPASS STOMACH ULCERS Hepatic: NONE Renal: NONE Musculoskeletal: FREQ FALLS "CRUSHED SPINE" CHRONIC BACK/NECK PAIN Psychiatric: anxiety Endocrine: NONE Blood Disorders: NONE Cancer(s): NONE 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 History of MRSA: No History of VRE: No History of CDIFF: No Surgical History Surgical History: , GASTRIC BYPASS TUBAL LIGATION Psychiatric Family/Social Hx Family History Psychiatric Illness: Denied family history of psychiatric illnesses Substance Use: Denied family history of alcoholism or substance use issues Suicides: Denied completed suicides among her blood relations Social History Living Situation: The patient is being evicted she was living with her boyfriend Significant Relationships (family/friends): Brother and sister mother and boyfriend Education: Ninth grade education Vocation/Occupation: Unemployed, on disability Legal: Facing an eviction court hearing today Healthly Behaviors Screening Tobacco Screening Tobacco Use from ED Docu: Quit >30 days ago - If tobacco counseling indicated - the following topics are required. - #1 Recognizing dangerous situations. - #2 Coping Skills. - #3 Basic information about quitting. Status of Tobacco Cessation Counseling: Not Applicable Cessation Med Status Not Applicable Alcohol Screening - ETOH screen POS if BAL >=80 or Audit-C>= M4/F3 Audit-C Score from Diag Assess: 1 Blood Alcohol Level: BAL < 10.0 Alcohol Use Screening Results: Neg per Audit C &/or BAL - If ETOH counseling indicated - the following topics are required. - #1 Express concern about the patient's - drinking at unhealthy levels, include informing - of national norms for moderate drinking: - men <= 14 drinks/week, max 4 drinks/occasion - women <= 7 drinks/week, max 3 drinks/occasion - #2 Providing feedback, including linking alcohol to - negative physical effects (liver injury, hypertension) - negative emotional effects (relationship problems and - depression) - negative occupational consequences (reduced work - performance) - #3 Advising the patient to abstain from alcohol or - to drink below national norms for moderate drinking - (as listed above). Status of ETOH Use Counseling: N/A B/C NO ETOH Use Metabolic Screening - Screen if on a Neuroleptic Medication - Metabolic screening should include: - Blood Pressure, BMI, Glucose or Hgb A1c, & a - Lipid profile from within the past 365 days. Metabolic Screening Not Applicable, patient not on a neuroleptic. Exam and Plan Mental Status Examination Ambulation Status: The patient was steady on her feet Appearance: Unremarkable appearance Attitude towards examiner: She was calm and cooperative Psychomotor activity: She showed normal psychomotor activity Behavior: There were no abnormal or bizarre behaviors Quality of speech: Minor articulation problems, otherwise her speech was normal, not pressured, not slurred Affect: She showed normal range of affect Mood: She reported feeling depressed and anxious Suicidal Ideation: She denied thinking of suicide today Homicidal Ideation: She denied having violent thoughts or thoughts of homicide Hallucinations: She denied hallucinations Paranoid/Delusional Material: She denied feeling paranoid, there were no delusions during the interview Difficulties with thought organization: She was coherent there were no major thought disorders Insight: Seems to have partial insight Judgment: Her judgment is questionable Orientation: She was alert and oriented to time, place, and person Cognition: She does have some difficulties with attention and concentration and word finding, minor difficulties with information processing Memory Function: Minor difficulties with memory function by her report, there was no evidence of gross impairment in short-term memory during the interview Estimate of intellectual functioning: Average Assets/Strengths Patient Identified Assets/Strengths: Patient seems to be likable, she does have social supports Impression/Plan Impression and Plan: 47-year-old single who was admitted yesterday for voicing thoughts of suicide after learning that she is being evicted - Include all active medical diagnosis that require tx DSM 5 Diagnosis(es): Unspecified Depressive D/O F32.9 Unspecified Anxiety d/o F43.12 Benzo Use D/O F13.20 Opiod Use D/O F11.20 Cannabis Use D/O F12.20 Status post cerebrovascular accident gastric bypass 2002 hx of seizures pending eviction - Initial Tx Plan for Active Psych & Medical Conditions Treatment Plan: Inpatient psychiatric care Safety checks every 15 minutes Nursing assessments Vital signs Education Group therapy and milieu therapy and activity therapy Collateral, biopsychosocial assessment, aftercare planning Daily evaluation of mental status and daily monitoring of medication Switch Xanax to Klonopin Start sertraline 50 mg daily Reevaluate tomorrow - Factors that would help patient function - in a less restrictive setting. Factors: Stable housing and abstinence from substances
--- NOTE | 2017-11-06 10:42 | SOCIAL WORKER PROG NOTE PSYCH ---
Social Work Progress Note Progress Note Ann-Marie approached my office this morning. She shared that she was due in court today, because she is being evicted. She said her Mother and boyfriend are going to court and she needs a letter to be sent stating she won't be there. She signed a release for [facility]. I faxed the letter early this morning. Her boyfriend showed up this morning to also inform nursing of the court date. He was told that a letter was sent. Ann-Marie seemed to be in alot of pain when we met. She was complaining of significant lower back pain and had explained that she broke her tail bone 10 years or so ago. She was involved in pain management, but shared the doctor stopped giving her meds because he thoughts she was misusing them. She stated that she is interested in pursuing methadone or another pain management doctor. She feels like a burden to her significant other Pepe. They have been together 14 years. She said when she was on pain medicine she used to be able to clean and cook and do things. Now she struggles and he is doing all of that at home. She feels he treats her like a funk. She feels badly and guilty about that. Talked about being in the process of an eviction. She doesn't seem to understand the reason of why she is being evicted. She says her Mother pays her rent. Her Mother has stopped paying though since the notice to be evicted. She said the landlord doesn't treat her well and gets in her face yelling at her. She says she has roaches in her apartment and he doesn't do anything. Her and Pepe are looking for another apartment, but it has to be a place that accepts a dog. We talked about her ingestion of the Xanax and why she did it. She reports that she thought she would and wanted to . She gets very overwhelmed by her emotions and panics. She then changed her mind though and woke up Pepe who then called 911. She is ambivalent about all of it stating part of her wishes she would have completed it and there is part that doesn't. She reports she has 3 months to vacate the apartment. She has had previous attempts - one at age 16 where she ingested pills and another by cutting her arm 15-16 years ago. It doesn't sound like she has been engaged in any outpatient tx for the last 5-6 years. She reports being sober from crack cocaine for 6 years. I asked about marijuana use? She said she smoked marijuana about 2 months ago. She reports that her boyfriend has a medical marijuana card and she wanted to know if it would help her pain. She said it didn't help. She is open to having her Mother and Pepe in for a family meeting and signed a release for them.
--- NOTE | 2017-11-06 10:52 | History & Physical ---
General Information and HPI MD Statement: I have seen and personally examined ANA CRISTINA LAMBERT and documented this H&P. The patient is a 47 year old F who presented with a patient stated chief complaint of drug overdose. Source of Information: patient Exam Limitations: no limitations History of Present Illness: 47-year-old female with past medical history significant for CVA 2, seizure disorder, anxiety, depression, history of gastric bypass, history of chronic back pain, lower extremity DVT who was admitted to Inpatient Psychiatry with drug overdose. Patient has been under a lot of stress these days because of pending eviction from her apartment. She took 40 pills of Xanax and told her boyfriend to call 911. Boyfriend thought that this was likely a suicide attempt. Patient claims that she was feeling overwhelmed with this spending addiction and homelessness. She does take Keppra and Xanax which was prescribed by her primary care doctor. She claims that Was for seizures and Xanax was for her anxiety. She was admitted to [facility] in August 2017 with right lower extremity DVT. She is on Xarelto. She also has right-sided residual weakness from previous CVA. There was a question of seizure-like activity yesterday evening when a rapid response was called and patient was evaluated by medical team at that point. Allergies/Medications Allergies: Coded Allergies: acetaminophen (Intermediate, UPSET STOMACH 08/12/17) PER PATIENT SHE IS ALLERGIC TO ACETAMINOPHEN ibuprofen (Intermediate, ULCERS 08/12/17) cyclobenzaprine (JITTERS 08/12/17) Home Med list Alprazolam 1 MG TABLET 1 TAB PO BID ANXIETY Cyclobenzaprine HCl 10 MG TABLET 1 TAB PO TID PRN muscle spasm Dexlansoprazole (Dexilant) 60 MG CAP.DR.BP 1 CAP PO DAILY HEARTBURN (Reported ) Gabapentin 300 MG CAPSULE 1 CAP PO TID NERVE PAIN (Reported) Levetiracetam (Keppra) 750 MG TABLET 1 TAB PO BID SEIZURE Morphine Sulfate 15 MG TABLET 1 TAB PO TID PAIN (Reported) Morphine Sulfate (Morphine Sulfate ER) 15 MG TABLET.ER 1 TAB PO BID PAIN ( Reported) Naloxone HCl (Narcan) 4 MG/ACTUATION SPRAY 4 MG DEJA AD PRN OPIOID INDUCED RESP DEPRESSION (Reported) Ondansetron (Zofran Odt) 4 MG TAB.RAPDIS 1 TAB SL TID PRN nausea Rivaroxaban (Xarelto) 15 MG TABLET 15 MG PO BID DVT . 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 Boy friend Functional Ability ADLs Independent: dressing, eating, toileting, bathing. Ambulation: cane Review of Systems Review of Systems Constitutional: Reports: see HPI. EENTM: Reports: see HPI. Cardiovascular: Reports: see HPI. Respiratory: Reports: see HPI. GI: Reports: see HPI. Genitourinary: Reports: see HPI. Musculoskeletal: Reports: see HPI. Neurological/Psychological: Reports: see HPI. Exam & Diagnostic Data Last 24 Hrs of Vital Signs/I&O Vital Signs Date Time Temp Pulse Resp B/P B/P Pulse O2 O2 Flow FiO2 Mean Ox Delivery Rate 11/06 0737 98.6 93 120/68 11/05 2000 97.9 80 138/78 / 1718 98.4 85 132/76 11/05 1554 85 132/76 Intake & Output 11/06 1600 11/06 0800 11/06 0000 Intake Total Output Total Balance Patient 227 lb Weight Physical Exam General Appearance Alert, Oriented X3, Cooperative, No Acute Distress Skin No Rashes HEENT PERRLA Neck Supple Cardiovascular Regular Rate, Normal S1, Normal S2 Lungs Clear to Auscultation Abdomen Normal Bowel Sounds, Soft, No Tenderness Neurological Exam Findings: rue is 4.5/5 strength. Cranial Nerves II through XII: intact Extremities No Edema Last 24 Hrs of Labs/Jermaine: Labs from 11/04/17 reviewed. Assessment/Plan Assessment: 47-year-old female with past medical history significant for CVA 2, seizure disorder, anxiety, depression, history of gastric bypass, history of chronic back pain, lower extremity DVT admitted to Inpatient Psychiatry with suicidal attempt with Xanax overdose, anxiety, depression and has a history of seizure disorder with seizure like activity last evening. Patient to be continued on Xarelto, Keppra. Xanax has been discontinued and she is now started on Klonopin. She should be continued on a PPI. Patient on gabapentin with a history of chronic pain as well as anxiety. I will defer the rest of the psych management up to psychiatry. Noted patient was also anemic with microcytosis. She did have low ferritin and iron levels in the past. I will start her on some iron replacement and I will order stool for guaiac. As Ranked By This Provider Problem List: 1. History of CVA (cerebrovascular accident) 2. Benzodiazepine overdose 3. Back pain 4. Seizure disorder 5. Anxiety and depression 6. Depression with suicidal ideation 7. Suicide attempt 8. Deep vein thrombophlebitis of right leg 9. Xanax use disorder, mild Miscellaneous Miscellaneous Documentation Attending Case Discussed With: Idalia Interiano MD Primary Care Physician: Luis Antonio Harrell MD Patient sees these Specialists none Level of Patient Care: ALEKSANDR Reyes
[2017-11-06 12:10] VITALS: BP 119/67
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
[2017-11-06 15:53] VITALS: BP 112/68
[2017-11-06 16:36] LABS: ABSOLUTE BASOPHIL COUNT 0 /CUMM (0.0-0.2); ABSOLUTE EOSINOPHIL COUNT 0.5 /CUMM (0.0-0.7); ABSOLUTE GRANULOCYTE CT 3.2 /CUMM (1.4-6.5); ABSOLUTE LYMPH COUNT 2.8 /CUMM (1.2-3.4); ABSOLUTE MONOCYTE COUNT 0.5 /CUMM (0.10-0.60); BASOPHIL % 0.6 % (0.0-2.0); EOSINOPHIL % 7.5 % (0-5); GRANULOCYTE % 45.9 % (42.2-75.2); MEAN CORPUSCULAR HGB 24.8 PG (27.0-31.0); MEAN CORPUSCULAR HGB CONC 32.3 G/DL (33.0-37.0); MEAN CORPUSCULAR VOLUME 76.6 FL (81.0-99.0); PLATELET COUNT 218 /CUMM (130-400); RBC DISTRIBUTION WIDTH 18.7 % (11.5-14.5); RED BLOOD CELL CT 4.18 /CUMM (4.20-5.40); WHITE BLOOD CELL COUNT 7.1 /CUMM (4.8-10.8)
[2017-11-06 19:33] VITALS: BP 113/57
[2017-11-07 07:37] VITALS: BP 108/59
--- NOTE | 2017-11-07 07:50 | CP SOUTH PROGRESS NOTE PSYCH ---
Psych (Inpt) Progress Note Progress Note Laboratory Tests 11/06 11/06 Chemistry Sodium (137 - 145 mmol/L) 139 Potassium (3.5 - 5.1 mmol/L) 3.7 Chloride (98 - 107 mmol/L) 104 Carbon Dioxide (22 - 30 mmol/L) 23 Anion Gap (5 - 16) 12 BUN (7 - 17 mg/dL) 16 Creatinine (0.5 - 1.0 mg/dL) 0.8 Estimated GFR (>60 ml/min) > 60 BUN/Creatinine Ratio (7 - 25 %) 20.0 Vitamin B12 (239 - 931 pg/mL) 325 Folate (2.76 - 20.0 ng/mL) 10.1 Hematology CBC w Diff NO MAN DIFF REQ WBC (4.8 - 10.8 /CUMM) 7.1 RBC (4.20 - 5.40 /CUMM) 4.18 L Hgb (12.0 - 16.0 G/DL) 10.4 L Hct (37 - 47 %) 32.0 L MCV (81.0 - 99.0 FL) 76.6 L MCH (27.0 - 31.0 PG) 24.8 L MCHC (33.0 - 37.0 G/DL) 32.3 L RDW (11.5 - 14.5 %) 18.7 H Plt Count (130 - 400 /CUMM) 218 MPV (7.4 - 10.4 FL) 9.0 Gran % (42.2 - 75.2 %) 45.9 Lymphocytes % (20.5 - 51.1 %) 39.3 Monocytes % (1.7 - 9.3 %) 6.7 Eosinophils % (0 - 5 %) 7.5 H Basophils % (0.0 - 2.0 %) 0.6 Absolute Granulocytes (1.4 - 6.5 /CUMM) 3.2 Absolute Lymphocytes (1.2 - 3.4 /CUMM) 2.8 Absolute Monocytes (0.10 - 0.60 /CUMM) 0.5 Absolute Eosinophils (0.0 - 0.7 /CUMM) 0.5 Absolute Basophils (0.0 - 0.2 /CUMM) 0 Vital Signs Date Time Temp Pulse B/P B/P Pulse O2 O2 Flow FiO2 Mean Ox Delivery Rate 11/07 736 97.9 92 108/59 11/06 1933 96.1 81 113/57 11/06 1553 78 112/68 Mental Status Examination: Pt. was alert, oriented to time, place, person. She was steady on her feet, calm and cooperative; showed normal psychomotor activity, There were no abnormal or bizarre behaviors; Minor articulation problems, normal range of affect, feeling much better, not depressed, less anxious, denied thinking of suicide today, She denied having violent thoughts or thoughts of homicide; denied hallucinations, She denied feeling paranoid, there were no delusions during the interview; coherent there were no major thought disorders, partial insight; judgment is questionable, She was She does have some difficulties with attention and concentration and word finding, minor difficulties with information processing, minor difficulties with memory function by her report Assessment: 47-year-old single who was admitted yesterday for voicing thoughts of suicide after learning that she is being evicted Diagnoses): Unspecified Depressive D/O F32.9 Unspecified Anxiety d/o F43.12 Benzo Use D/O ; Opiod Use D/O ; Cannabis Use D/O F12.20; Status post cerebrovascular accident, S/P gastric bypass 2002, Seizure Disorder, pending eviction Treatment Plan Update: Reduce Klonopin to 1 mg at bedtime Group therapy and milieu therapy and activity therapy Collateral, biopsychosocial assessment, aftercare planning Continue sertraline 50 mg daily
[2017-11-07 12:13] VITALS: BP 133/56
--- NOTE | 2017-11-07 14:30 | SOCIAL WORKER PROG NOTE PSYCH ---
Social Work Progress Note Progress Note Called to schedule a family meeting with her significant other Pepe and her Mother. Spoke with Pepe and scheduled a time for 11am tomorrow. He didn't seem confident that he would be able to make it at that time due to possibly working. I told him to call if that time didn't work tomorrow. I also left a message with her Mother. Ann-Marie talked about wanting to start Suboxone. She understands that she would not be able to be on a benzo if she were to start that medication. She stated that the doctor is tapering her Klonopin. Informed her that I am coordinating a family meeting for tomorrow. She is hoping for discharge soon. I told her that I need to speak with the team about her plan and that a date hasn't been determined at this time. She shared today that she is glad that she spoke to Pepe and told him about the pills she said "I don't want to ." Again, she feels badly about her limitations due to her stroke and doesn't want to feel like a burden. She gets very upset and frustrated by her speech impairment. She has not had speech therapy and it was something that she is interested in. I asked if she has spoken with her PCP about this? She told me she didn't like her doctor and he doesn't treat her or her family well. I asked if she would like a referral to [facility]? She said she would. [facility]. She stated she would love to be able to work on herself and then be able to give hope to other stroke victims. She realizes her situation could have been much worse. We also discussed her interest in attending a [facility]. She said she wanted to go to [facility] with a friend, but the friend never offered to pick her up so she didn't push the issue further. She was also talking about dentures and needing to follow up with a dental clinic. She stated she has alot of things that she would like to get done and she wants to get them all done sancho. I reminded her that goals do take time and she needs to think about breaking her goals down into small steps each day. Received a call from Ann-Marie's sister Julienne. She said her Mother has medical conditions and it is difficult for her to get here for a meeting. I offered to call and conference her in. She said that would be fine. Julienne said she has always struggled with managing her medications as prescribed and that the pain meds have been an issue. I told her if Ann-Marie is open to it we can see if she is elegible for VNS.
[2017-11-07 16:21] VITALS: BP 121/64
[2017-11-07 19:29] VITALS: BP 134/72
[2017-11-08 05:19] VITALS: BP 139/78
[2017-11-08 07:32] VITALS: BP 134/67
--- NOTE | 2017-11-08 07:34 | CP SOUTH PROGRESS NOTE PSYCH ---
Psych (Inpt) Progress Note Progress Note Vital signs: Temperature: 97.4F Pulse: 85 bpm Blood pressure: 134/67 mmHg The patient's progress and treatment plan were reviewed and the treatment team meeting this morning. The patient's aftercare plans were also reviewed with the team. Mental Status Examination: Pt. was alert and oriented to time, place, person. She was steady on her feet, calm and cooperative; showed normal psychomotor activity, no abnormal or bizarre behaviors; Minor articulation problems, normal range of affect, feeling much better, not depressed, less anxious, denied thinking of suicide today, denied having violent thoughts or thoughts of homicide; denied hallucinations, denied feeling paranoid , there were no delusions during the interview; coherent there were no major thought disorders, partial insight; judgment is questionable, some difficulties with attention and concentration and word finding, minor difficulties with information processing, minor difficulties with memory function by her report Assessment: 47-year-old single who was admitted yesterday for voicing thoughts of suicide after learning that she is being evicted. Since then a court hearing took place, and the patient and her boyfriend were given until January of the current place of residence before having to evacuate. The patient since admission has shown significant improvement on feels ready for discharge as well as the team feeling that she is ready for discharge. Most likely she will be living after the family meeting takes place this afternoon. Diagnoses): Unspecified Depressive D/O F32.9 Unspecified Anxiety d/o F43.12 Benzo Use D/O ; Opiod Use D/O ; Cannabis Use D/O F12.20; Status post cerebrovascular accident, S/P gastric bypass 2002, Seizure Disorder, pending eviction Treatment Plan Update: Discharge home with follow-up at [facility]'s outpatient psychiatry The patient will have to hold the Suboxone program at [facility], since she did phone intake interview while she was in Inpatient Psychiatry and she just needs an exact appointment for the [id number] intake
[2017-11-08] MEDS ORDERED: FERROUS SULFAT325 M2 PO (08:28)
[2017-11-08] MEDS ORDERED: DICLOFENAC SODI75 M2 PO (08:28)
[2017-11-08] MEDS ORDERED: GABAPENTIN400 M2 PO (08:28)
[2017-11-08] MEDS ORDERED: KEPPRA750 M1 PO ×2 (08:28→08:31)
[2017-11-08] MEDS ORDERED: SERTRALINE HCL100 MG PO (08:31)
--- NOTE | 2017-11-08 09:07 | SOCIAL WORKER PROG NOTE PSYCH ---
Social Work Progress Note Progress Note Ann-Marie informed me that her Mom will come in for 11am today. Her friend will be bringing her. We talked about getting things in place for discharge today. She asked about the visiting nurse for weekly med pour. I told her I would look into it and see if she is elegible. We talked about a referral to [facility] or [facility]. She said she would prefer [facility]. Called [facility] to do a referral. They took the information and reqested some updated clinical. She said they will check the insurance and get back to me. Set up appts. at [facility]. She will have an intake with Roxann Myles on 11/13 4:45 and a med eval on 11/28 9am with Kiarra Lutz APRN. She is also scheduled for a [facility] appt. in [place] on 11/15. Ann-Marie was given [facility]'s phone number to set up transportation if needed [facility] refused the referral stating they couldn't confirm a doctor to sign in the community. Made a referral to [facility]. They accepted the referral and will see Ann-Marie for weekly med pours on Saturday. [facility] wasn't [facility] to [facility]. Neither was Pepe. We called her Mom at home from Dr. Silvestre's office. Mom seemed very loving and supportive towards Ann-Marie. She just wants the best for her and wants her to take her meds as prescribed. Talked about aftercare set up for Ann-Marie, including [facility]. Mom said she used to have it in the past. Mom didn't seem to have any concerns related to her going home today. Ann-Marie was given information on a stroke support group that happens the first Saturday of the month in [place]. She was concerned about how she might get there, but seemed interested. Walked home with a friend at discharge. She doesn't live far from the hospital.
--- NOTE | 2017-11-08 09:47 | Patient Discharge Instructions ---
Psych Discharge Inst General Discharge Information Reason for Admission: Xanax overdose Psy Discharge Primary Diag+ Unspecified Depressive Di Unspecified Anxiety Disor Opioid use Disorder Psy Discharge Secondary Diag+ Sedative Hypnotic Use Dis Summary Tests/Major Procedures Lab Hct 32.0 % L 11/06/17 1550 Hgb 10.4 G/DL L 11/06/17 1550 Serum Alcohol < 10.0 MG/DL 11/04/17 0358 U Benzodiazepines Scrn > 800 NG/ML H 11/04/17 0758 Studies Pending at DC: None Patient Instructions Contact Information Your Psychiatrist on [facility] was Konrad LOPEZ,Niranjan * If you are experiencing an emergency related to this hospitalization, please call [phone] to contact the treating psychiatrist or the psychiatrist-on- call. * To Request a copy of your medical records, please contact the Medical Records Department at [phone]. * To request results of studies pending at the time of discharge, please call [phone]. * Continue your Medications until directed to stop by your Healthcare provider. General Medication Information Please continue to take your new medications and your continued home medications , unless otherwise indicated on your discharge medication list, or unless directed by your MD or LICENSED REAL ESTATE BROKER to stop them. Special Instructions Diet Regular Activity As Tolerated - Tobacco Use Treatment Offered Post DC Medications Offered: Not Applicable Post DC Tobacco Treatment Plan: Not Applicable - EtOH/Drug Use D/O Treatment Offered Post DC Medications Offered: NA-No EtOH/Drug Use D/O Post DC EtOH/SubAbuse TX Plan: NA-No EtOH/Drug Use D/O Metabolic Screening Not Applicable, patient not on a neuroleptic. Advance Directives Does the Patient have Medical Advance Directives No/Refused further info Does Pt have Psychiatric Advance Directives? No/Refused further info Does Patient have a Designated Surrogate Decision Maker: No Information About Psychiatric Advance Directives Provided? Refused Discharge Plan Post Hospital Treatment Plan: [facility]'s outpatient psychiatric services Patient to follow up for an intake with Suboxone program at the [facility]
[2017-11-08] MEDS ORDERED: CLONAZEPAM0.5 M2 PO (10:00)
[2017-11-08] MEDS ORDERED: OMEPRAZOLE20 M2 PO (10:40)
--- NOTE | 2017-11-08 10:43 | DISCHARGE SUMMARY REPORT-PSYCH ---
Visit Information Visit Dates/Diagnosis' Admission Date: 11/05/17 Discharge Date: 11/08/17 Reason for Admission: Xanax overdose Psy Discharge Primary Diag: Unspecified Depressive Di Unspecified Anxiety Disor Opioid use Disorder Psy Discharge Secondary Diag: Sedative Hypnotic Use Dis Hospital Course Significant Lab Findings: Lab Hct 32.0 % L 11/06/17 1550 Hgb 10.4 G/DL L 11/06/17 1550 Serum Alcohol < 10.0 MG/DL 11/04/17 0358 U Benzodiazepines Scrn > 800 NG/ML H 11/04/17 0758 Course Complications: The patient did not have any complications while she was on the inpatient psychiatric unit Consultations: The patient had a history and physical examination while she was on the inpatient psychiatric unit. She was seen by Dr. Idalia Interiano MD, on 11/06/2017. Assessment/Plan 47-year-old female with past medical history significant for CVA 2, seizure disorder, anxiety, depression, history of gastric bypass, history of chronic back pain, lower extremity DVT admitted to Inpatient Psychiatry with suicidal attempt with Xanax overdose, anxiety, depression and has a history of seizure disorder with seizure like activity last evening. Patient to be continued on Xarelto, Keppra. Xanax has been discontinued and she is now started on Klonopin. She should be continued on a PPI. Patient on gabapentin with a history of chronic pain as well as anxiety. I will defer the rest of the psych management up to psychiatry. Noted patient was also anemic with microcytosis. She did have low ferritin and iron levels in the past. I will start her on some iron replacement and I will order stool for guaiac. Problem List: 1. History of CVA (cerebrovascular accident); 2. Benzodiazepine overdose; 3. Back pain; 4. Seizure disorder; 5. Anxiety and depression 6. Depression with suicidal ideation; 7. Suicide attempt; 8. Deep vein thrombophlebitis of right leg; 9. Xanax use disorder, mild Allergies: Coded Allergies: acetaminophen (Intermediate, UPSET STOMACH 08/12/17) PER PATIENT SHE IS ALLERGIC TO ACETAMINOPHEN ibuprofen (Intermediate, ULCERS 08/12/17) cyclobenzaprine (JITTERS 08/12/17) Hospital Course/TX Response: Vital signs: Temperature: 97.4F Pulse: 85 bpm Blood pressure: 134/67 mmHg The patient's progress and treatment plan were reviewed and the treatment team meeting this morning. The patient's aftercare plans were also reviewed with the team. Mental Status Examination: Pt. was alert and oriented to time, place, person. She was steady on her feet, calm and cooperative; showed normal psychomotor activity, no abnormal or bizarre behaviors; Minor articulation problems, normal range of affect, feeling much better, not depressed, less anxious, denied thinking of suicide today, denied having violent thoughts or thoughts of homicide; denied hallucinations, denied feeling paranoid , there were no delusions during the interview; coherent there were no major thought disorders, partial insight; judgment is questionable, some difficulties with attention and concentration and word finding, minor difficulties with information processing, minor difficulties with memory function by her report Assessment: 47-year-old single who was admitted yesterday for voicing thoughts of suicide after learning that she is being evicted. Since then a court hearing took place, and the patient and her boyfriend were given until January of the current place of residence before having to evacuate. The patient since admission has shown significant improvement on feels ready for discharge as well as the team feeling that she is ready for discharge. Most likely she will be living after the family meeting takes place this afternoon. Diagnoses): Unspecified Depressive D/O F32.9 Unspecified Anxiety d/o F43.12 Benzo Use D/O ; Opiod Use D/O ; Cannabis Use D/O F12.20; Status post cerebrovascular accident, S/P gastric bypass 2002, Seizure Disorder, pending eviction Treatment Plan Update: Discharge home with follow-up at [facility]'s outpatient psychiatry The patient will have to hold the Suboxone program at [facility], since she did phone intake interview while she was in Inpatient Psychiatry and she just needs an exact appointment for the [id number] intake Discharge HBIPS - Tobacco Use Treatment Offered Post DC Medications Offered: Not Applicable Post DC Tobacco Treatment Plan: Not Applicable - EtOH/Drug Use D/O Treatment Offered Post DC Medications Offered: Script Given-See Med List Post DC EtOH/SubAbuse TX Plan: Other SubAbuse/Dual Pgm Metabolic Screening - Screen if on a Neuroleptic Medication - Metabolic screening should include: - Blood Pressure, BMI, Glucose or Hgb A1c, & a - Lipid profile from within the past 365 days. Metabolic Screening Not Applicable, patient not on a neuroleptic. Discharge Instructions General Discharge Information Multiple Neuroleptics: Not Applicable Discharge Diet Regular Discharge Activity As Tolerated Referrals Ordered Referrals Provider Referral 11/13/17 For Groups: Outpatient Psychiatry Intake at [facility] 11/13/17 4:45pm with Candy Myles [address] [place] [address] Provider Referral 11/28/17 For Groups: Outpatient Psychiatry [facility] Medication Management appt. 11/28/17 9am with Kiarra Lutz APRN [address] [place] [address] Provider Referral 11/15/17 For Groups: [facility] Multiple Locations [facility] appt. with Dr. Castillo 11/15/17 9:15am [address] [place] [address] Provider Referral 11/11/17 For Groups: [[facility]] [facility] for weekly med pour and assessment Start date 11/11/17 Provider Referral 11/20/17 For Groups: Outpatient Psychiatry [facility] Smoking Cessation Group is offered on : 11/20/17 4pm [address] [place] [address] Provider Referral For Groups: [[facility]] Follow up with [facility] Suboxone clinic [address] [place] [address] Prescriptions Stop taking the following medications: Dexlansoprazole (Dexilant) 60 MG BP ORAL DAILY Morphine Sulfate (Morphine Sulfate) 15 MG TABLET ORAL THREE TIMES DAILY Days = 30 Gabapentin (Gabapentin) 300 MG CAPSULE ORAL THREE TIMES DAILY Qty = 90 Morphine Sulfate (Morphine Sulfate ER) 15 MG TABLET.ER ORAL TWICE DAILY Qty = 60 Cyclobenzaprine HCl (Cyclobenzaprine HCl) 10 MG TABLET ORAL THREE TIMES DAILY as needed for muscle spasm Qty = 30 Ondansetron (Zofran Odt) 4 MG TAB.RAPDIS SUBLINGUAL THREE TIMES DAILY as needed for nausea Qty = 10 Alprazolam (Alprazolam) 1 MG TABLET ORAL TWICE DAILY Qty = 30 Continue taking these medications: Naloxone HCl (Narcan) 4 MG/ACTUATION SPRAY 4 Milligram In the nose As Directed as needed for OPIOID INDUCED RESP DEPRESSION Qty = 2 Rivaroxaban (Xarelto) 15 MG TABLET 15 Milligram ORAL TWICE DAILY Qty = 60 Instructions: . Comments: Last Taken:11/07/17 Time:5pm Levetiracetam (Keppra) 750 MG TABLET 1 Tablet ORAL TWICE DAILY Qty = 60 Comments: Last Taken:11/08/17 Time:8am This prescription has been renewed Start taking the following new medications: Ferrous Sulfate (Ferrous Sulfate) 325 MG (65 MG IRON) TABLET. 325 Milligram ORAL THREE TIMES DAILY Qty = 45 No Refills Comments: Last Taken:11/08/17 Time:8am Diclofenac Sodium (Diclofenac Sodium) 75 MG TABLET. 75 Milligram ORAL EVERY SIX HOURS NEEDED as needed for musculoskeletal pain Qty = 60 No Refills Comments: Last Taken:11/07/17 Time:5pm Gabapentin (Gabapentin) 400 MG CAPSULE 400 Milligram ORAL 0800,1400,2000 Qty = 90 No Refills Comments: Last Taken:11/08/17 Time:12pm Sertraline HCl (Sertraline HCl) 100 MG TABLET 1 Tablet ORAL DAILY Qty = 30 No Refills Comments: Last Taken:11/08/17 Time:8am Omeprazole (Omeprazole) 20 MG CAPSULE. 20 Milligram ORAL DAILY BEFORE BREAKFAST Qty = 30 No Refills Clonazepam (Clonazepam) 0.5 MG TABLET 1 Tablet ORAL SEE INSTRUCTIONS Qty = 30 No Refills Instructions: 3 tablets at bedtime for 1 week, then 2 tablets at bedtime until seen by a psychiatrist/psychiatric nurse practitioner Comments: Last Taken:11/08/17 Time:12pm Studies Pending at Discharge None
[2017-11-08 12:13] VITALS: BP 137/80
--- NOTE | 2017-11-08 14:06 | SOCIAL WORKER PROG NOTE PSYCH ---
Social Work Progress Note Faxed Referral(s) 1 Referred To: [facility] Transition of Care Documents sent: Health Summary, W10 Faxed to: [facility] Fax #: [phone] Faxed by: Charissa Fierro Date faxed: 11/08/17 Time Faxed: [phone] Faxed Referral(s) 2 Referred To: [facility] Transition of Care Documents sent: Health Summary, W10 Faxed to: [facility] Fax #: [phone] Faxed by: Charissa Fierro Date faxed: 11/08/17 Time Faxed: [phone]
== END 2017-11-08 12:50 | DRG 881 ==
LOC: CP SOUTH 13:12 → ENRESERV 13:47 → CP SOUTH 15:46
PROVIDERS: Hospitalist
DX: F32.9 Major depressive disorder, single episode, unspecified (principal); F11.10 Opioid abuse, uncomplicated; F41.9 Anxiety disorder, unspecified; F13.10 Sedative, hypnotic or anxiolytic abuse, uncomplicated
CPT/HCPCS: 36415; 82436; 93005; 93010; 94799; J0515; J1630; J1953; J3101; J3490; Q2036